=== PATIENT | female | born 1945 | race Caucasian/White ===

== ENCOUNTER 2016-11-21 16:36 | Inpatient (IN) ==
--- NOTE | 2016-11-21 17:40 | Emergency Department Note ---
Disposition Clinical Impression: Elevated systolic blood pressure reading with diagnosis of hypertension DVT (deep venous thrombosis) Qualifiers: DVT location: lower extremity Affected thrombotic vein of extremity: popliteal Laterality: left Chronicity: acute Qualified Code(s): I82.432 - Acute embolism and thrombosis of left popliteal vein Disposition: Admitted As Inpatient Condition: Fair Time of Disposition: 22:34 General Adult HPI - General Chief complaint: ED Extremity Injury, Lower Stated complaint: left leg pain and swelling s/p fall Time Seen by Provider: 11/21/16 17:13 Source: patient Mode of arrival: ambulatory Limitations: no limitations Nursing Notes Reviewed: Yes Vital Signs Reviewed: Yes - History of Present Illness HPI Narrative: Mrs. Johnston, a 71yo female, presents from home by POV with concerns regarding LLE swelling & bruising. Hx autoimmune hepatitis x20yrs, recently started on new steroid medication (6wks ago, Dr. Angel VILLANUEVA), after which she began having BL LE swelling. She was started on Lasix which improved her swelling on right side. Lt LE swelling persisted and progressed. Associated with lightheadedness. Patient fell Thursday - no LOC, no head trauma, no evaluation at that time. Weday, she noticed increased LLE swelling with bruising. PMH: anxiety, autoimmune hepatitis. HTN Medications: budesonide, carvedilol No antiplatelets or anticoagulants. ROS: Pos: Swelling with ecchymosis left lower extremity Neg: Fever, chills, nausea, vomiting, chest pains, palpitations, dyspnea, diaphoresis, back pains, changes in vision, confusion, unusual weakness or confusion Pain Scale: 3 - Related Data Home Medications Medication Instructions Recorded Confirmed Budesonide [Entocort EC] 9 mg PO QAM 11/21/16 11/21/16 Carvedilol [Carvedilol] 12.5 mg PO BID 11/21/16 11/21/16 Cholecalciferol (D-3) [Vitamin D] 1,000 unit PO DAILY 11/21/16 11/21/16 Furosemide [Lasix] 40 mg PO DAILY 11/21/16 11/21/16 Omeprazole [PriLOSEC] 20 mg PO DAILY 11/21/16 11/21/16 Spironolactone [Aldactone] 100 mg PO DAILY 11/21/16 11/21/16 Allergies Allergy/AdvReac Type Severity Reaction Status Date / Time No Known Allergies Allergy Verified 02/25/16 14:45 All systems ED: reviewed and negative except as stated. Past Medical History - Past Medical History Medical history: Reports: hypertension, other - Social History Smoking Status: Never smoker Smokeless Tobacco Status: No Alcohol use: Reports: none Drug use: Reports: none Physical Exam Vital Signs Reviewed General: Patient is alert, oriented, and in no acute distress. HEENT: No facial asymmetry. Head is normocephalic and atraumatic. PERRLA. Trachea midline. Cardiovascular: Heart regular rate and rhythm without clicks, rubs, gallops, or murmurs. No JVD. PMI nondisplaced. Trace pedal edema. Respiratory: Symmetric chest rise with good respiratory effort. Bilateral breath sounds are clear without wheezing, crackles, or rhonchi. Abdomen: Bowel sounds present normoactive x-4 quadrants. Abdomen is soft, nondistended, and nontender. No organomegaly noted. Musculoskeletal: Muscle strength 5/5 and symmetric bilaterally in lower extremities. Bilateral posterior tibial and dorsalis pedis pulses 2/4. Left leg compartments are soft. Skin: Ecchymosis in patient's left leg localized to the anterior aspect without extension into the knee or ankle. Psych: Patient's affect is appropriate for situation. - General Limitations: no limitations General appearance: alert, in no apparent distress Course Course Narrative: Patient is comfortable in a symptomatically at this time. She is able ambulate on her left lower extremity. She has no other pains or complaints. Initial concern is for a provoked DVT in the left lower extremity secondary to her fall. She is hypertensive at 188/123 and asymptomatic. We will continue monitoring as well as draw lab work looking for potential end organ damage as well as Doppler ultrasound left lower extremity to rule out DVT. Preliminary left over extremity Doppler ultrasound is concerning for multiple clots in the superficial and deep venous systems. Discussed this with the patient. She denies any chest pains, palpitations, dyspnea, cough, hemoptysis. At this time, no clinical indication for CT angiogram of her chest. Spoke with Dr. Green, director alumni relations vascular surgery, regarding patient's DVT and superficial clots. His recommendation is Lovenox or heparin. He has no preferences patient's renal function is normal. We will relay this information to the hospitalist for admission. Lovenox 1mg/kg administered. Spoke with the admitting hospitalist, Dr. Manuel, who agrees to accept the patient. Patient's blood pressure continues to elevate. Will provide labetalol IV push. No evidence of end organ damage. Impression: DVT, superficial venous thrombi, elevated blood pressure in the setting of chronic hypertension. Vital Signs Temperature 98.2 F 11/21/16 17:06 Pulse Rate 73 11/21/16 17:06 Respiratory Rate 18 11/21/16 17:06 Blood Pressure 188/123 11/21/16 17:06 O2 Sat by Pulse Oximetry 96 11/21/16 17:06 Temperature 98.2 F 11/21/16 17:06 Pulse Rate 72 11/21/16 22:09 Respiratory Rate 18 11/21/16 23:04 Blood Pressure 197/106 11/21/16 23:04 O2 Sat by Pulse Oximetry 95 11/21/16 22:09 Oxygen Delivery Oxygen Delivery Room Air Medical Decision Making - Medical Records Medical records reviewed: Yes I reviewed the patient's medical records. - Lab Data Lab results reviewed: Yes I reviewed the patient's lab results. Result diagrams: 11/21/16 18:26 11/21/16 18:26 Lab Results 11/21/16 11/21/16 11/21/16 Range/Units 18:26 18:26 18:26 WBC 14.2 H (4.3-11.1) K/mcL RBC 5.24 H (3.82-4.97) M/mcL Hgb 15.2 (11.5-15.4) g/dL Hct 47.6 H (35.3-44.9) % MCV 90.8 (83.0-100.0) fL MCH 29.0 (28.0-33.3) pg MCHC 31.9 (31.6-35.5) g/dL RDW 17.1 H (11.5-14.5) % Plt Count 115 L (140-400) K/mcL MPV 12.1 (9.4-12.4) fL Immature Gran % 1.1 (0-4) % Seg Neutrophils % 91.8 % Lymphocytes % 2.5 % Monocytes % 3.2 % Eosinophils % 1.1 % Basophils % 0.3 % Neutrophils # 13.0 H (1.6-8.9) K/mcL Lymphocytes # 0.4 L (0.6-4.6) K/mcL Monocytes # 0.5 (0.0-1.3) K/mcL Eosinophils # 0.2 (0.0-0.6) K/mcL Basophils # 0.0 (0.0-0.2) K/mcL PT 13.4 H (9.4-12.1) Seconds INR 1.2 Sodium 138 (136-145) mEq/L Potassium 4.1 (3.5-4.5) mEq/L Chloride 103 (98-109) mEq/L Carbon Dioxide 26 (19-29) mEq/L BUN 20 (7-20) mg/dL Creatinine 0.89 (0.57-1.11) mg/dL Est GFR ( Amer) > 60 (> 60) Est GFR (Non-Af Amer) > 60 (> 60) BUN/Creatinine Ratio 22 (6-26) Glucose 170 H (70-99) mg/dL Calculated Osmolality 293 (280-300) Calcium 9.4 (8.6-10.8) mg/dL Total Bilirubin 1.5 H (0.2-1.2) mg/dL AST 27 (5-34) Units/L ALT 35 (0-55) Units/L Alkaline Phosphatase 161 H (38-126) Units/L Serum Total Protein 7.2 (6.0-8.3) g/dL Albumin 2.8 L (3.5-5.0) g/dL Globulin 4.4 H (2.4-3.5) g/dL Albumin/Globulin Ratio 0.6 L (1.1-2.2) - EKG Data EKG #1 EKG attestation: Yes I reviewed and interpreted this EKG. EKG results narrative: EKG dated 21 November 2016 at 19:08 interpreted as sinus rhythm with a rate of 72. Normal intervals GA 153, QRS 109, QT/QTC 401/425. Left axis. Nonspecific ST-T changes. Awaiting old EKG. Attestation Statement - Attestation Attestation: I personally interviewed and examined this patient and my medical decision- making was reviewed with the ED Resident Physician, I agree with the documented findings, disposition and treatment plan as described except to the extent set forth below. Patient is a 71-year-old white female who presents the emergency room with left lower cavity pain and edema following a fall on Thursday in which she sustained a large amount of ecchymosis and soft tissue swelling to the left lower leg. He should denies any chest pain or pressure no shortness of breath no lightheadedness or dizziness and near syncope since the incident occurred. Patient has no pain in the joints above or below. Patient arrives to the emergency department ambulatory no difficulty with weightbearing despite large amount of ecchymosis and swelling to the left lower leg. Patient never had a blood clot in the past and no known risk factors with the exception of the recent injury. He should not arrives with an elevated blood pressure, history of hypertension. Patient denies any headache no visual changes no chest pain or pressure no shortness of breath no focal neurologic deficits. Physical exam is documented. Patient was found to have extensive DVT of the left lower extremity. cargo services coordinator not available and outpatient anticoagulants are not covered by her Medicare insurance per pharmacy and less patient admitted to the hospital. Patient is hemodynamically stable at this time and be admitted to the medicine service with a vascular consult. Vascular consult was requested by the hospitalist and was ordered in the emergency department. We did speak with Dr. Johnson Judd who will see the patient tomorrow. Anticoagulation was initiated in the ED.
[2016-11-21 18:34] LABS: Basophils % 0.3 %; Eosinophils # 0.2 K/mcL (0.0-0.6); Eosinophils % 1.1 %; Hematocrit 47.6 % (35.3-44.9); Hemoglobin 15.2 g/dL (11.5-15.4); Immature Granulocytes % 1.1 % (0-4); Lymphocytes # 0.4 K/mcL (0.6-4.6); Lymphocytes % 2.5 %; Mean Corpuscular HGB Conc 31.9 g/dL (31.6-35.5); Mean Corpuscular Volume 90.8 fL (83.0-100.0); Mean Platelet Volume 12.1 fL (9.4-12.4); Monocytes # 0.5 K/mcL (0.0-1.3); Monocytes % 3.2 %; Platelet Count 115 K/mcL (140-400); Red Blood Count 5.24 M/mcL (3.82-4.97); Red Cell Distribution Width 17.1 % (11.5-14.5); Segmented Neutrophils % 91.8 %
[2016-11-21 18:41] LABS: INR 1.2; Prothrombin Time 13.4 Seconds (9.4-12.1)
[2016-11-21 18:48] LABS: Alanine Aminotransferase 35 Units/L (0-55); Albumin 2.8 g/dL (3.5-5.0); Albumin/Globulin Ratio 0.6 (1.1-2.2); Alkaline Phosphatase 161 Units/L (38-126); Aspartate Amino Transferase 27 Units/L (5-34); BUN/Creatinine Ratio 22 (6-26); Bilirubin,Total 1.5 mg/dL (0.2-1.2); Blood Urea Nitrogen 20 mg/dL (7-20); Calcium 9.4 mg/dL (8.6-10.8); Carbon Dioxide 26 mEq/L (19-29); Chloride 103 mEq/L (98-109); Globulin 4.4 g/dL (2.4-3.5); Glucose 170 mg/dL (70-99); Osmolality,Calculated 293 (280-300); Potassium 4.1 mEq/L (3.5-4.5); Sodium 138 mEq/L (136-145); Total Protein 7.2 g/dL (6.0-8.3); eGFR For African Americans > 60 (> 60); eGFR For Non-African Americans > 60 (> 60)
[2016-11-21] MEDS ORDERED: *HR* Enoxaparin 100 MG/ML SYRINGE SQ STA (21:23)
[2016-11-21] MEDS ORDERED: *HR* Labetalol 20 MG/4 ML SYRINGE IVP ONE (22:19)
[2016-11-21] MEDS ORDERED: Acetaminophen 325 MG TABLET PO PRN (23:43)
[2016-11-21] MEDS ORDERED: Ondansetron 4 MG/2 ML VIAL IVP PRN (23:43)
[2016-11-21] MEDS ORDERED: Naloxone 0.4 MG/ML INJ IVP PRN (23:43)
[2016-11-22 00:56] LABS: Bilirubin,Urine Negative (Negative); Blood,Urine Negative (Negative); Clarity,Urine Clear (Clear); Color,Urine Yellow (Yellow); Glucose,Urine (UA) Normal (Normal); Ketones,Urine Negative (Negative); Leukocyte Esterase,Urine Negative (Negative); Nitrite,Urine Negative (Negative); Protein,Urine Negative (Neg-Trace); Specific Gravity,Urine 1.016 (1.010-1.025); Urobilinogen,Urine Normal (Normal)
[2016-11-22] MEDS ORDERED: cloNIDine HCl 0.1 MG TABLET PO ONE (00:57)
--- NOTE | 2016-11-22 00:58 | Internal Med History&Physical ---
Date of Encounter: 11/22/16 Time of Encounter: 00:56 Assessment and Plan (1) DVT (deep venous thrombosis) Current visit: Yes Status: Acute Patient presents with swelling in the left lower extremity and exam reveals bruising and edema over the left lower ex 20. Lower extremity Doppler reveals DVT in the left superficial femoral vein and popliteal vein. Patient does not have a history of air travel, prolonged sitting or recent road trip. Likely provocating factor for her left lower extremity DVT is the recent use of steroids. Patient will be admitted to inpatient status. Expected to be in the hospital for at least 2 midnights. Moderate risk due to need for anticoagulation and possible bridging to Coumadin depending on whether her insurance will cover Coumadin versus new or anticoagulants. Expected discharge disposition is to home. Patient received Lovenox full dose in the emergency room. Will continue the same. Discussed with the patient about the diagnosis and the need for anticoagulation for at least 3 months. Discussed about the options including Coumadin versus newer anticoagulants. Patient wants to be on one of the newer anticoagulant medications. Will need to check with the pharmacy regarding which anticoagulant will be covered. If it will be, she can be discharged home tomorrow. For now, patient will be continued on full dose Lovenox. Qualifiers: DVT location: lower extremity Affected thrombotic vein of extremity: femoral Laterality: left Chronicity: acute Qualified Code(s): I82.412 - Acute embolism and thrombosis of left femoral vein (2) HTN (hypertension) Current visit: Yes Status: Chronic Uncontrolled blood pressure. We will give 1 dose of by mouth clonidine 0.2 mg. Resume home medications. Qualifiers: Hypertension type: essential hypertension Qualified Code(s): I10 - Essential (primary) hypertension (3) Obesity (BMI 30.0-34.9) Current visit: No Status: Chronic Internal Medicine - H&P: HPI Chief complaint: Left leg swelling Admitted From: Emergency Dept Plans for Post Hospital Care: Home History of present illness: Ms. Johnston is a 71 year old female presented to the emergency department due to swelling in her left leg. Patient states that she has a history of autoimmune hepatitis. She has had this for 20 years. However, over the past 8-9 months she has started experiencing fatigue. Hence, she is being evaluated by liver specialist at [facility]. After she underwent a liver biopsy, she was recently started on by mouth budesonide 9 mg daily about one and half months ago. She states that she has started experiencing weight gain and swelling in her legs since she started budesonide. About 10 days ago, she was started on Lasix and the swelling in her legs started resolving. However, she continued to have swelling in her left leg. She also reports 2 episodes of near syncope over the past week but denies having lost consciousness. One episode happened when she was walking and the second episode happened when she was urinating. She denies any nausea, vomiting associated with these episodes. She denies any palpitations. She denies any fever or chills. She does report some rash over the left lower extremity and some bruising. She denies any recent changes in her appetite but reports fluctuating weight changes. Past Med Surg Social Fam HX - Past Medical History Attestation: Yes The following information was validated with the patient. Source: patient Medical history: hepatitis, hypertension, liver disease (Autoimmune hepatitis) Psychiatric history: no psych history - Past Surgical History Surgical History: , cataract, hysterectomy - Social History Smoking Status: Never smoker Smokeless Tobacco Status: No Alcohol use: none Drug use: none Current living situation: Home, With Family Activity Level: Independent ambulation, Very active Recent Out of Country Travel Within the Last 8 Weeks: No Exposure or Possible Exposure to Illness During Travel: No - Family History Mother Living Status: Age at : 71 Cause of : UNKNOWN Hx Family Neurologic Disorders: Yes (ALZHEIMERS) Internal Medicine - H&P: Meds Budesonide [Entocort EC] 9 mg PO QAM 11/21/16 [History] Carvedilol [Carvedilol] 12.5 mg PO BID 11/21/16 [History] Cholecalciferol (D-3) [Vitamin D] 1,000 unit PO DAILY 11/21/16 [History] Furosemide [Lasix] 40 mg PO DAILY 11/21/16 [History] Omeprazole [PriLOSEC] 20 mg PO DAILY 11/21/16 [History] Spironolactone [Aldactone] 100 mg PO DAILY 11/21/16 [History] Allergies No Known Allergies Allergy (Verified 02/25/16 14:45) All Systems PM: A 10-system review of systems was performed and is negative for pertinent findings except as documented above in the HPI. Review of systems: 10 systems have been reviewed and are negative except as mentioned in the history of present illness - Constitutional Vitals: Temp Pulse Resp BP Pulse Ox 97.9 F 68 18 115/78 100 11/21/16 23:22 11/21/16 23:22 11/21/16 23:22 11/21/16 23:22 11/21/16 23:22 Exam: Gen.: Lying in bed. No acute distress. Eyes: Pupils equal, round and reactive to light. Extraocular muscles intact. ENT: Moist mucous membranes. No oropharyngeal erythema or discharge. Chest: Clear to auscultation bilaterally. No adventitious sounds present. CVS: First and second heart sounds present. No murmurs, rubs or gallops. Abdomen: Soft, nontender, nondistended. Bowel sounds present. No hepatosplenomegaly. Skin: No decubitus ulcers appreciated. Bruising over the left lower extremity below the left knee joint. COUNTER PROFESSIONAL: No focal neuro deficits present. Psychiatric: Alert, awake and oriented to time, place and person. Lymphatic system: No lymphadenopathy appreciated Musculoskeletal: No joint tenderness or swelling. Edema noted over the left lower extremity more than the right lower extreme. Nonpitting. Nontender to palpation. Internal Med - H&P Results - Labs CBC & Chem 7: 11/21/16 18:26 11/21/16 18:26 - Diagnostic Studies Other Images Additional comments: Left lower extremity venous Doppler reveals DVT in the superficial femoral vein.
[2016-11-22] MEDS ORDERED: cloNIDine HCl 0.1 MG TABLET ONE (01:04)
[2016-11-22 03:04] LABS: Basophils % 0.2 %; Eosinophils # 0.1 K/mcL (0.0-0.6); Eosinophils % 1.1 %; Hematocrit 44.8 % (35.3-44.9); Hemoglobin 14.4 g/dL (11.5-15.4); Immature Granulocytes % 1.6 % (0-4); Lymphocytes # 0.5 K/mcL (0.6-4.6); Lymphocytes % 3.8 %; Mean Corpuscular HGB Conc 32.1 g/dL (31.6-35.5); Mean Corpuscular Hemoglobin 29.1 pg (28.0-33.3); Mean Corpuscular Volume 90.7 fL (83.0-100.0); Mean Platelet Volume 11.8 fL (9.4-12.4); Monocytes # 0.5 K/mcL (0.0-1.3); Monocytes % 3.5 %; Neutrophils # 11.6 K/mcL (1.6-8.9); Platelet Count 104 K/mcL (140-400); Red Blood Count 4.94 M/mcL (3.82-4.97); Segmented Neutrophils % 89.8 %
[2016-11-22 03:17] LABS: Alanine Aminotransferase 31 Units/L (0-55); Albumin 2.6 g/dL (3.5-5.0); Albumin/Globulin Ratio 0.7 (1.1-2.2); Alkaline Phosphatase 144 Units/L (38-126); Aspartate Amino Transferase 27 Units/L (5-34); BUN/Creatinine Ratio 21 (6-26); Bilirubin,Total 1.3 mg/dL (0.2-1.2); Blood Urea Nitrogen 18 mg/dL (7-20); Calcium 9.2 mg/dL (8.6-10.8); Carbon Dioxide 25 mEq/L (19-29); Chloride 104 mEq/L (98-109); Globulin 3.9 g/dL (2.4-3.5); Glucose 210 mg/dL (70-99); Osmolality,Calculated 294 (280-300); Potassium 4.1 mEq/L (3.5-4.5); Sodium 138 mEq/L (136-145); Total Protein 6.5 g/dL (6.0-8.3); eGFR For African Americans > 60 (> 60); eGFR For Non-African Americans > 60 (> 60)
[2016-11-22] MEDS: *HR* Enoxaparin 100 MG/ML SYRINGE SQ SCH ×2 (06:05→17:35)
[2016-11-22] MEDS ORDERED: Cholecalciferol (D-3) 1,000 UNIT TABLET PO SCH (09:00)
[2016-11-22] MEDS ORDERED: ENTOCORT 9 MG PO SCH (09:00)
--- NOTE | 2016-11-22 13:35 | Venous Imaging Report ---
LE Venous Duplex Patient Name:Perri Johnston Order Number:[id number] Procedure Date:11/21/2016 Date:6Age:71 yrs Gender:Female Location:[facility] [place] ED Room #: ED30 Animal Stunner:Lara Dubose Referring MD:Cristopher Sandra DO production team member:Carlos Harley MD Reading MD:Lalito Mcfadden MD Primary Indications:Swelling/bruising of left LE Secondary Indications: Risk Factors Yes/No Recent fall Impressions: Acute deep venous thrombosis is present in the left superficial femoral through gastrocnemius vein. Acute superficial thrombosis is present in the left lesser saphenous vein. Normal contralateral common femoral vein. Recommendations: Test completed on 11/21/2016 at 8:02:00 pm. Critical findings reported to DO Matthew-ED- in person at 8:03:00 pm on 11/21/2016 by Lara Dubose. Findings Venous Duplex Results: Left: There is an acute occlusive thrombus seen in the left distal superficial femoral. There is an acute occlusive thrombus seen in the left popliteal. There is an acute occlusive thrombus seen in the left gastrocnemius. There is an acute occlusive thrombus seen in the left lesser saphenous. The left peroneal vein was not well visualized. Prior Study: No prior study available for comparison. Lower Extremity Venous Duplex Side Vein Compress Spontaneous Flow Augment Diameter (cm) Depth (cm) Left Distal Iliac Normal Yes Phasic Yes Left Common Femoral Normal Yes Phasic Yes Left Superficial Femoral None no Absent no Left Popliteal None no Absent no Left Posterior Tibial Normal Yes Phasic Yes Left Peroneal Normal Yes Phasic Yes Left Gastrocnemius None no Absent no Left Saphenofemoral Junction Normal Yes Phasic Yes Left Great Saphenous Normal Yes Phasic Yes Left Lesser Saphenous None no Absent no Right Common Femoral Normal Yes Phasic Yes Updated by Lalito Mcfadden MD on 11/22/2016 1:26:56 PM electronically signed on 11/22/2016 1:30:59 PM with status of Final
[2016-11-22 15:31] VITALS: BP 128/79
--- NOTE | 2016-11-22 15:42 | Oncology Inp Consult Note ---
Date of Encounter: 11/22/16 Time of Encounter: 16:00 Assessment and Plan (1) DVT (deep venous thrombosis) Status: Acute Assessment and plan: Lower extremity from left superficial femoral vein through gastrocnemius vein, left lesser saphenous vein acute in onset, planned anti-coagulation with xarelto. She had evidence of biopsy-proven mild cirrhosis by Dr. Flanagan's notes in 2009 and imaging features consistent with cirrhosis as well. Liver function tests coag panel reviewed, hypoalbuminemia, PT slightly prolonged. GIven hepatic insufficiency and acute onset symptomatic DVT-anticoagulation with (xarelto 15 BID x3 wks for ac DVT) rather than coumadin to be considered, monitoring for clinical bleeding symptoms. Plan off care discussed with patient in detail and she stated understanding. We reviewed the risks benefits off anticoagulation. She will return to my clinic for close monitoring off any bleeding symptoms in a week to 2 weeks. Qualifiers: DVT location: lower extremity Affected thrombotic vein of extremity: femoral Laterality: left Chronicity: acute Qualified Code(s): I82.412 - Acute embolism and thrombosis of left femoral vein - Data of Consult Requesting Physician: Maynor Valderrama DO Primary Care Provider: Carlos Harley Jr, MD - Consult Narrative Reason for consult: dvt History of present illness: Ms. Johnston is a 71 year old female was consulted for acute DVT in the left superficial femoral, left popliteal, left lesser saphenous and left gastronemius vein, acute superficial thrombosis in the left lesser saphenous vein. 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 Hematology consulted for appropriate anticoag given her liver problem as well as new onset DVT. Reports a fall last week and had noticed some swelling and bruising in the lower extremity. She reports that she is not on Imuran anymore and her hot roll laminator at [facility] had put her on budesonide. She thought that the swelling was related to budesonide. She denies any pain. Past Med Surg Social Fam HX - Past Medical History Medical history: hepatitis, hypertension, liver disease (Autoimmune hepatitis) Psychiatric history: no psych history - Past Surgical History Surgical History: , cataract, hysterectomy - Social History Smoking Status: Never smoker Smokeless Tobacco Status: No Alcohol use: none Drug use: none - Family History Mother Living Status: Age at : 71 Cause of : UNKNOWN Hx Family Neurologic Disorders: Yes (ALZHEIMERS) Medications and Allergies Budesonide [Entocort EC] 9 mg PO QAM 11/21/16 [History] Carvedilol [Carvedilol] 12.5 mg PO BID 11/21/16 [History] Cholecalciferol (D-3) [Vitamin D] 1,000 unit PO DAILY 11/21/16 [History] Furosemide [Lasix] 40 mg PO DAILY 11/21/16 [History] Omeprazole [PriLOSEC] 20 mg PO DAILY 11/21/16 [History] Spironolactone [Aldactone] 100 mg PO DAILY 11/21/16 [History] Allergies No Known Allergies Allergy (Verified 02/25/16 14:45) Review of systems: as in HPI otherwise neg Oncology - Exam - Constitutional Vitals: Temp Pulse Resp BP Pulse Ox 98.0 F 83 16 128/79 93 11/22/16 15:28 11/22/16 15:28 11/22/16 15:28 11/22/16 15:28 11/22/16 15:28 General appearance: average body habitus - Head Head exam: Present: atraumatic, normal inspection - Eye Eye exam: Present: sclera anicteric - ENT ENT exam: Present: mucous membranes moist - Respiratory Respiratory exam: Present: CTAB - Cardiovascular Cardiovascular exam: Present: +S1, +S2 - GI/Abdominal GI/Abdominal exam: Present: normal bowel sounds, soft - Extremities Exam Extremities exam: Present: pedal edema - Neurological Exam Neurological exam: Present: alert, oriented X3 - Psychiatric Psychiatric exam: Present: normal affect - Skin Skin exam: Present: petechiae Oncology - Results - Labs Labs: Short CBC 11/22/16 Range/Units 02:26 WBC 12.9 H (4.3-11.1) K/mcL Hgb 14.4 (11.5-15.4) g/dL Hct 44.8 (35.3-44.9) % Plt Count 104 L (140-400) K/mcL Neutrophils # 11.6 H (1.6-8.9) K/mcL BMP 11/22/16 02:26 Sodium 138 Potassium 4.1 Chloride 104 Carbon Dioxide 25 BUN 18 Creatinine 0.85 Glucose 210 H Calcium 9.2 Liver Function 11/22/16 Range/Units 02:26 Total Bilirubin 1.3 H (0.2-1.2) mg/dL AST 27 (5-34) Units/L ALT 31 (0-55) Units/L Alkaline Phosphatase 144 H (38-126) Units/L Albumin 2.6 L (3.5-5.0) g/dL Consult Discharge Plan - Plan Referrals: Carlos Harley Jr, MD [Primary Care Provider] -
--- NOTE | 2016-11-22 18:35 | Discharge Summary ---
Date of Encounter: 11/22/16 Time of Encounter: 18:30 - Discharge Diagnosis (1) DVT (deep venous thrombosis) Priority: Primary Status: Acute Qualifiers: DVT location: lower extremity Affected thrombotic vein of extremity: femoral Laterality: left Chronicity: acute Qualified Code(s): I82.412 - Acute embolism and thrombosis of left femoral vein (2) HTN (hypertension) Priority: Secondary Status: Chronic Qualifiers: Hypertension type: essential hypertension Qualified Code(s): I10 - Essential (primary) hypertension (3) Obesity (BMI 30.0-34.9) Priority: Secondary Status: Chronic (4) Autoimmune hepatitis Priority: Secondary Status: Chronic (5) Splenomegaly Priority: Secondary Status: Chronic - Discharge Medications Prescriptions: Rivaroxaban [Xarelto] 1 dose PO AD 30 Days Home Medications: Budesonide [Entocort EC] 9 mg PO QAM 11/21/16 [History] Carvedilol 12.5 mg PO BID 11/21/16 [History] Cholecalciferol (D-3) [Vitamin D] 1,000 unit PO DAILY 11/21/16 [History] Furosemide [Lasix] 40 mg PO DAILY 11/21/16 [History] Omeprazole [PriLOSEC] 20 mg PO DAILY 11/21/16 [History] Spironolactone [Aldactone] 100 mg PO DAILY 11/21/16 [History] Rivaroxaban [Xarelto] 1 dose PO AD 30 Days 11/22/16 [Rx] Allergies/Adverse Reactions: Allergies No Known Allergies Allergy (Verified 02/25/16 14:45) Date of admission: 11/22/16 00:53 Primary care physician: Carlos Harley Jr, MD Consults: 11/22/16 07:13 Consult to [employer] Executive Director [CONS] Routine Reason for SW Consult: medication pre auth 11/22/16 14:15 Consult to Oncology Hematology [CONS] Routine Consulting Provider: Henrique Menjivar Reason for Consult: DVT. Anticoagulant recs. Time Notified: 13:45 Call Completed: Yes Discharging clinician: Maynor Valderrama Anticipated date of discharge: 11/22/16 - Patient Status Disposition: Home, Self-Care Condition: Good Functional capacity at discharge: independent ambulation Overall status at discharge: patient is progressing back to baseline - Discharge Instructions Follow Up With: Carlos Harley Jr, MD [Primary Care Provider] - (Follow up in one week) - Diet and Activity Activity: increase activity as tolerated Diet: advance to your usual diet Hospital course: Ms. Johnston is a 71 year old female with hx of autoimmune hepatitis presented with swelling in L leg. Found to have DVT and admitted. Ms. Johnston was admitted to med floor. She was started on Lovenox BID. She tolerated this with no new issues. Due to her other medical problems she was evaluated by heme and recommended Xarelto for field scout treatment. She was agreeable. She is afebrile and vitals are stable. She was admitted inpatient but has improved quickly and arrangements have been made for adequate outpatient treatment and follow up. - Time Spent with Patient Total time spent providing and/or coordinating discharge services: 40 min - Constitutional Vitals: Temp Pulse Resp BP Pulse Ox 98.0 F 83 16 128/79 93 11/22/16 15:28 11/22/16 15:28 11/22/16 15:28 11/22/16 15:28 11/22/16 15:28 General appearance: Present: A&O X 3, pleasant, answers questions appropriately - Head Head exam: Present: normocephalic - Eye Eye exam: Present: conjuntiva pink - ENT ENT exam: Present: mucous membranes moist - Respiratory Respiratory exam: Present: CTAB - Cardiovascular Cardiovascular exam: Present: RRR. Absent: tachycardia - GI/Abdominal GI/Abdominal exam: Present: soft. Absent: tenderness - Extremities Exam Extremities exam: Present: pedal edema, warm Additional comments: LLE with significant ecchymosis and swelling. Pulse palpable. - Neurological Exam Neurological exam: Present: alert, oriented X3 - Psychiatric Psychiatric exam: Present: normal affect, normal mood
--- NOTE | 2016-11-24 07:10 | Electrocardiograph Report ---
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
== END 2016-11-22 19:19 | disposition home or self-care (01) | DRG 301 ==
LOC: EMEROO 16:36 → 3BNU 16:36 → SUATTDRO 11-22 00:53
PROVIDERS: ADMIT Registered Nurse; ATTEND Internal Medicine

== ENCOUNTER 2017-07-10 16:20 | Inpatient (IN) ==
[2017-07-10 16:57] LABS: Bilirubin,Urine Moderate (Negative); Blood,Urine Negative (Negative); Clarity,Urine Cloudy (Clear); Color,Urine Orange (Yellow); Glucose,Urine (UA) Normal (Normal); Ketones,Urine Trace mg/dL (Negative); Leukocyte Esterase,Urine Small (Negative); Nitrite,Urine Positive (Negative); PH,Urine 5.5 pH Units (5.0-8.0); Protein,Urine Trace mg/dL (Neg-Trace); Specific Gravity,Urine 1.018 (1.010-1.025)
[2017-07-10 16:59] LABS: Bacteria,Urine None Seen per hpf (None-Few); Hyaline Casts,Urine Few per lpf (None-Few); RBC,Urine 0-3 per hpf (0-3); Squamous Epithelial Cell,Urine Many per lpf (None-Few); WBC,Urine 0-3 per hpf (0-3)
[2017-07-10 17:03] LABS: Eosinophils # 0.1 K/mcL (0.0-0.6); Eosinophils % 1.3 %; Hematocrit 37.7 % (35.3-44.9); Immature Granulocytes % 0.9 % (0-4); Lymphocytes # 0.1 K/mcL (0.6-4.6); Lymphocytes % 2.1 %; Mean Corpuscular HGB Conc 34.5 g/dL (31.6-35.5); Mean Corpuscular Hemoglobin 37.6 pg (28.0-33.3); Mean Platelet Volume 10.7 fL (9.4-12.4); Monocytes # 0.2 K/mcL (0.0-1.3); Monocytes % 3.4 %; Neutrophils # 6.2 K/mcL (1.6-8.9); Platelet Count 121 K/mcL (140-400); Red Blood Count 3.46 M/mcL (3.82-4.97); Red Cell Distribution Width 15.8 % (11.5-14.5); Segmented Neutrophils % 92.3 %
[2017-07-10 17:23] LABS: Alanine Aminotransferase 65 Units/L (7-52); Albumin 3.2 g/dL (3.5-5.7); Albumin/Globulin Ratio 1.1 (1.1-2.2); Alkaline Phosphatase 263 Units/L (34-104); Aspartate Amino Transferase 138 Units/L (13-39); BUN/Creatinine Ratio 23 (6-26); Bilirubin,Total 6.5 mg/dL (0.3-1.0); Blood Urea Nitrogen 19 mg/dL (8-23); Carbon Dioxide 24 mEq/L (23-29); Chloride 105 mEq/L (98-107); Globulin 2.8 g/dL (2.4-3.5); Glucose 165 mg/dL (70-105); Osmolality,Calculated 294 (280-300); Potassium 3.6 mEq/L (3.5-5.1); Sodium 139 mEq/L (136-145); eGFR For African Americans > 60 (> 60); eGFR For Non-African Americans > 60 (> 60)
--- NOTE | 2017-07-10 17:47 | Emergency Department Note ---
Disposition Clinical Impression: Elevated bilirubin, Transaminitis, RUQ pain, Nausea and vomiting Disposition: Admitted As Inpatient Condition: Good Time of Disposition: 20:31 General Adult HPI - General Chief complaint: ED Nausea/Vomiting/Diarrhea Stated complaint: N/V Time Seen by Provider: 07/10/17 16:26 Source: patient Mode of arrival: ambulatory Limitations: no limitations Nursing Notes Reviewed: Yes Vital Signs Reviewed: Yes - History of Present Illness HPI Narrative: Patient is a 72-year-old female with past medical history of autoimmune hepatitis, steroid-induced diabetes. She follows with the cancer center here for care. She also states that she has had running fifth sludge in her gallbladder in the past and has had episodes of right upper quadrant abdominal pain in the past. She has blood work frequently to monitor her LFTs and bilirubin levels. She presents today due to epigastric and right upper quadrant pain. This began about 2-3 hours prior to presentation. She had 5 episodes of nonbloody nonbilious vomiting. Denies any fevers, constipation. She does have chronic diarrhea that is unchanged. Denies any blood in stool or urine, denies dysuria. She does state that her urine is very dark today. Pain Scale: 7 - Related Data Home Medications Medication Instructions Recorded Confirmed Budesonide [Entocort EC] 3 mg PO QAM 11/21/16 07/10/17 Carvedilol 12.5 mg PO DAILY 11/21/16 07/10/17 Cholecalciferol (D-3) [Vitamin D] 2,000 unit PO DAILY 11/21/16 07/10/17 Furosemide [Lasix] 40 mg PO DAILY PRN 11/21/16 07/10/17 Omeprazole [PriLOSEC] 20 mg PO DAILY 11/21/16 07/10/17 Spironolactone [Aldactone] 100 mg PO DAILY PRN 11/21/16 07/10/17 Azathioprine [Imuran] 75 mg PO DAILY 07/10/17 07/10/17 Insulin Glargine,Hum.rec.anlog 10 unit SQ HS 07/10/17 07/10/17 [Basaglar Kwikpen U-100] Allergies Allergy/AdvReac Type Severity Reaction Status Date / Time No Known Allergies Allergy Verified 06/10/17 14:50 All systems ED: reviewed and negative except as stated. Constitutional: Denies: fever Cardiovascular: Denies: chest pain, palpitations Respiratory: Denies: cough, dyspnea, wheezes Gastrointestinal: Reports: abdominal pain, nausea, vomiting, diarrhea (chronic) . Denies: hematemesis, melena, hematochezia Genitourinary: Reports: other (dark urine). Denies: urgency, dysuria, frequency Neurological: Denies: headache, weakness, numbness, paresthesias Past Medical History - Past Medical History Attestation: Yes The following information was validated with the patient. Source: patient Medical history: Reports: diabetes, hypertension, other Surgical history: Reports: , cataract, hysterectomy Psychiatric history: Reports: no psych history SALES OPERATIONS DIRECTOR history: Reports: no SALES OPERATIONS DIRECTOR history - Social History Smoking Status: Never smoker Smokeless Tobacco Status: No Alcohol use: Reports: none Drug use: Reports: none Physical Exam - General Limitations: no limitations General appearance: alert - Head Head exam: atraumatic, normocephalic, normal inspection - Eye Eye exam: Present: normal appearance, PERRL, EOMI - ENT ENT exam: normal exam, normal oropharynx, mucous membranes moist - Neck Neck exam: Present: normal inspection, full ROM, trachea midline - Chest Chest inspection: Present: normal inspection, symmetric chest wall rise - Respiratory Respiratory exam: Present: normal lung sounds bilaterally - Cardiovascular Cardiovascular exam: Present: normal rhythm, tachycardia, normal heart sounds - Abdominal Exam Abdominal exam: Present: soft, tenderness (moderate in epigastric and RUQ), Zaman's sign. Absent: distention, guarding, rebound, rigidity, tenderness at McBurney's Point - Extremities Exam Extremities exam: Present: normal inspection, full ROM. Absent: tenderness, pedal edema - Neurological Exam Neurological exam: Present: alert, oriented X3 - Psychiatric Psychiatric exam: Present: normal affect, normal mood - Skin Skin exam: Present: warm, dry, intact, other (Petechial rash on left cheek.) Course Course Narrative: Patient was afebrile. She is tachycardic. Blood pressure within normal limits. Physical exam shows epigastric and right upper quadrant pain, positive Zaman's sign. Basic lab work shows elevation in LFTs from baseline, elevation in total bilirubin. We will give the patient IV fluids for dehydration and tachycardia, we will obtain right upper quadrant ultrasound to assess for cholecystitis. Patient is currently declining any pain or nausea medicine. 20:29 gallbladder ultrasound showed mild thickening of the gallbladder wall but no overt pericholecystic fluid. This is concerning for possible cholecystitis. I talked with surgery, Dr. Hayden, who recommended that the patient be seen by GI tomorrow and be worked up by GI first. Once that is complete, surgery can be consult for possible cholecystectomy. I reassessed the patient and she is now agreeable with Zofran for nausea and IV fluids. We will get the patient for further care. Vital Signs Temperature 97.5 F L 07/10/17 17:00 Pulse Rate 119 07/10/17 17:00 Respiratory Rate 18 07/10/17 17:00 Blood Pressure 120/81 07/10/17 17:00 O2 Sat by Pulse Oximetry 96 07/10/17 17:00 Temperature 97.5 F L 07/10/17 17:00 Pulse Rate 116 07/10/17 19:34 Respiratory Rate 18 07/10/17 19:34 Blood Pressure 137/81 07/10/17 19:34 O2 Sat by Pulse Oximetry 96 07/10/17 19:34 Oxygen Delivery Oxygen Delivery Room Air Medical Decision Making - MDM Narrative Medical decision making narrative: Patient was afebrile. She is tachycardic. Blood pressure within normal limits. Physical exam shows epigastric and right upper quadrant pain, positive Zaman's sign. Basic lab work shows elevation in LFTs from baseline, elevation in total bilirubin. We will give the patient IV fluids for dehydration and tachycardia, we will obtain right upper quadrant ultrasound to assess for cholecystitis. Patient is currently declining any pain or nausea medicine. 20:29 gallbladder ultrasound showed mild thickening of the gallbladder wall but no overt pericholecystic fluid. This is concerning for possible cholecystitis. I talked with surgery, Dr. Hayden, who recommended that the patient be seen by GI tomorrow and be worked up by GI first. Once that is complete, surgery can be consult for possible cholecystectomy. I reassessed the patient and she is now agreeable with Zofran for nausea and IV fluids. We will get the patient for further care. - Medical Records Medical records reviewed: Yes I reviewed the patient's medical records. - Lab Data Lab results reviewed: Yes I reviewed the patient's lab results. Result diagrams: 07/10/17 16:54 07/10/17 16:54 Lab Results 07/10/17 07/10/17 07/10/17 Range/Units 16:50 16:54 16:54 WBC 6.7 D (4.3-11.1) K/mcL RBC 3.46 L (3.82-4.97) M/mcL Hgb 13.0 D (11.5-15.4) g/dL Hct 37.7 (35.3-44.9) % MCV 109.0 H (83.0-100.0) fL MCH 37.6 H (28.0-33.3) pg MCHC 34.5 (31.6-35.5) g/dL RDW 15.8 H (11.5-14.5) % Plt Count 121 L D (140-400) K/mcL MPV 10.7 (9.4-12.4) fL Immature Gran % 0.9 (0-4) % Seg Neutrophils % 92.3 % Lymphocytes % 2.1 % Monocytes % 3.4 % Eosinophils % 1.3 % Basophils % 0.0 % Neutrophils # 6.2 (1.6-8.9) K/mcL Lymphocytes # 0.1 L (0.6-4.6) K/mcL Monocytes # 0.2 (0.0-1.3) K/mcL Eosinophils # 0.1 (0.0-0.6) K/mcL Basophils # 0.0 (0.0-0.2) K/mcL PT (9.4-12.1) Seconds INR APTT (26.0-36.0) Seconds Sodium 139 (136-145) mEq/L Potassium 3.6 (3.5-5.1) mEq/L Chloride 105 (98-107) mEq/L Carbon Dioxide 24 (23-29) mEq/L BUN 19 (8-23) mg/dL Creatinine 0.81 (0.60-1.20) mg/dL Est GFR ( Amer) > 60 (> 60) Est GFR (Non-Af Amer) > 60 (> 60) BUN/Creatinine Ratio 23 (6-26) Glucose 165 H (70-105) mg/dL Calculated Osmolality 294 (280-300) Calcium 9.0 (8.6-10.3) mg/dL Total Bilirubin 6.5 H (0.3-1.0) mg/dL AST 138 H (13-39) Units/L ALT 65 H (7-52) Units/L Alkaline Phosphatase 263 H (34-104) Units/L Serum Total Protein 6.0 L (6.4-8.9) g/dL Albumin 3.2 L (3.5-5.7) g/dL Globulin 2.8 (2.4-3.5) g/dL Albumin/Globulin Ratio 1.1 (1.1-2.2) Urine Color [place] A (Yellow) Urine Clarity Cloudy A (Clear) Urine pH 5.5 (5.0-8.0) pH Units Ur Specific [place] 1.018 (1.010-1.025) Urine Protein Trace (Neg-Trace) mg/dL Urine Glucose (UA) Normal (Normal) mg/dL Urine Ketones Trace H (Negative) mg/dL Urine Blood Negative (Negative) Urine Nitrite Positive A (Negative) Urine Bilirubin Moderate H (Negative) Urine Urobilinogen 4.0 H (Normal) mg/dL Ur Leukocyte Esterase Small H (Negative) Urine Microscopic RBC 0-3 (0-3) per hpf Urine Microscopic WBC 0-3 (0-3) per hpf Ur Squamous Epith Cells Many H (None-Few) per lpf Urine Bacteria None Seen (None-Few) per hpf Hyaline Casts Few (None-Few) per lpf Ur Culture Indicated? NO. (NO) 07/10/17 Range/Units 19:41 WBC (4.3-11.1) K/mcL RBC (3.82-4.97) M/mcL Hgb (11.5-15.4) g/dL Hct (35.3-44.9) % MCV (83.0-100.0) fL MCH (28.0-33.3) pg MCHC (31.6-35.5) g/dL RDW (11.5-14.5) % Plt Count (140-400) K/mcL MPV (9.4-12.4) fL Immature Gran % (0-4) % Seg Neutrophils % % Lymphocytes % % Monocytes % % Eosinophils % % Basophils % % Neutrophils # (1.6-8.9) K/mcL Lymphocytes # (0.6-4.6) K/mcL Monocytes # (0.0-1.3) K/mcL Eosinophils # (0.0-0.6) K/mcL Basophils # (0.0-0.2) K/mcL PT 14.0 H (9.4-12.1) Seconds INR 1.3 APTT 26.1 (26.0-36.0) Seconds Sodium (136-145) mEq/L Potassium (3.5-5.1) mEq/L Chloride (98-107) mEq/L Carbon Dioxide (23-29) mEq/L BUN (8-23) mg/dL Creatinine (0.60-1.20) mg/dL Est GFR ( Amer) (> 60) Est GFR (Non-Af Amer) (> 60) BUN/Creatinine Ratio (6-26) Glucose (70-105) mg/dL Calculated Osmolality (280-300) Calcium (8.6-10.3) mg/dL Total Bilirubin (0.3-1.0) mg/dL AST (13-39) Units/L ALT (7-52) Units/L Alkaline Phosphatase (34-104) Units/L Serum Total Protein (6.4-8.9) g/dL Albumin (3.5-5.7) g/dL Globulin (2.4-3.5) g/dL Albumin/Globulin Ratio (1.1-2.2) Urine Color (Yellow) Urine Clarity (Clear) Urine pH (5.0-8.0) pH Units Ur Specific [place] (1.010-1.025) Urine Protein (Neg-Trace) mg/dL Urine Glucose (UA) (Normal) mg/dL Urine Ketones (Negative) mg/dL Urine Blood (Negative) Urine Nitrite (Negative) Urine Bilirubin (Negative) Urine Urobilinogen (Normal) mg/dL Ur Leukocyte Esterase (Negative) Urine Microscopic RBC (0-3) per hpf Urine Microscopic WBC (0-3) per hpf Ur Squamous Epith Cells (None-Few) per lpf Urine Bacteria (None-Few) per hpf Hyaline Casts (None-Few) per lpf Ur Culture Indicated? (NO) - Radiology Data Radiology results reviewed: Yes I reviewed the patient's radiology results. Gallbladder Ultrasound 07/10/17 18:05 IMPRESSION: 1. The liver has a nodular border and appears to be small suggesting cirrhosis. 2. No focal hepatic masses 3. Cholelithiasis with evidence for sludge in the gallbladder. Gallbladder wall is mildly thickened. No definite pericholecystic fluid. Cholecystitis could give this appearance. 4. The common bile duct is at the upper limits of normal in size. D/ / Amauri Steele MD / Amauri Steele MD Interpreting Provider: Amauri Steele MD - EKG Data EKG #1 EKG attestation: Yes I reviewed and interpreted this EKG. EKG results narrative: 2017 at 17:01. Sinus tachycardia. Rate 120. CA 153. QRS 93. QTC 392. Left axis deviation. No acute ST elevation or depression.
--- NOTE | 2017-07-10 18:08 | Emergency Department Note ---
START Narrative - START START: I examined this patient and my medical decision-making was reviewed with the Resident Physician, Dae Lopez. I agree with the documented findings, disposition and treatment plan as described except to the extent set forth below. I have personally performed a face to face evaluation on this patient. I have reviewed and agree with the care plan. Briefly: Patient has non-autoimmune hepatitis. Patient is being followed up by Dr. Paz. Patient's nausea vomiting and her urine turning orange. She has slight jaundice. She is ill-appearing but nontoxic. Tachycardic at rest at 119. T bili is 6.5, just great markedly elevated and the highest level she has ever had. CBC within normal limits. Her transaminases are also elevated. This is been a difference and just 24 hours since he was last measured. Patient will get a right upper quadrant ultrasound. Admission is anticipated. We offered analgesics and IV fluids the patient initially declined but we will re-attacks apposition and asked her to reconsider for IV fluids. Disposition pending.
[2017-07-10] MEDS ORDERED: 0.9 % Sodium Chloride 1,000 ML IVC ONE (18:18)
[2017-07-10 19:54] LABS: INR 1.3
[2017-07-10 19:56] LABS: Activated Partial Thrombo Time 26.1 Seconds (26.0-36.0)
[2017-07-10] MEDS ORDERED: Naloxone 0.4 MG/ML INJ IVP PRN (20:44)
[2017-07-10] MEDS ORDERED: Ketorolac 30 MG/ML VIAL IVP PRN (20:44)
[2017-07-10] MEDS ORDERED: *HR* HYDROcodone/Acet 5/325 mg TABLET PO PRN (20:44)
[2017-07-10] MEDS ORDERED: Ondansetron 4 MG/2 ML VIAL IVP PRN (20:44)
[2017-07-10] MEDS ORDERED: Furosemide 40 MG TABLET PO PRN (20:49)
[2017-07-10] MEDS ORDERED: Dextrose Gel 15 GM/37.5 ML TUBE PO PRN ×2 (20:52)
[2017-07-10] MEDS ORDERED: *HR* Dextrose 50 % in Water (Syg) 50 ML SYRINGE IVP PRN (20:52)
[2017-07-10] MEDS ORDERED: D5% in Water 1,000 ML IVC PRN (20:52)
--- NOTE | 2017-07-10 20:58 | Internal Med History&Physical ---
<Sariah Pabon - Last Filed: 07/10/17 22:26> Date of Encounter: 07/10/17 Time of Encounter: 22:00 Internal Medicine - H&P: HPI History of present illness: Ms. Johnston is a 72 year old female Internal Medicine - H&P: Meds Budesonide [Entocort EC] 3 mg PO QAM 11/21/16 [History] Carvedilol 12.5 mg PO DAILY 11/21/16 [History] Cholecalciferol (D-3) [Vitamin D] 2,000 unit PO DAILY 11/21/16 [History] Furosemide [Lasix] 40 mg PO DAILY PRN 11/21/16 [History] Omeprazole [PriLOSEC] 20 mg PO DAILY 11/21/16 [History] Spironolactone [Aldactone] 100 mg PO DAILY PRN 11/21/16 [History] Azathioprine [Imuran] 75 mg PO DAILY 07/10/17 [History] Insulin Glargine,Hum.rec.anlog [Basaglar Kwikpen U-100] 10 unit SQ HS 07/10/17 [ History] 3 Allergy/AdvReac Type Severity Reaction Status Date / Time No Known Allergies Allergy Verified 06/10/17 14:50 All Systems PM: A 10-system review of systems was performed and is negative for pertinent findings except as documented above in the HPI. - Constitutional Vitals: Temp Pulse Resp BP Pulse Ox 98.1 F 118 16 146/83 97 07/10/17 20:59 07/10/17 20:59 07/10/17 20:59 07/10/17 20:59 07/10/17 20:59 Internal Med - H&P Results - Labs CBC & Chem 7: 07/10/17 16:54 07/10/17 16:54 - Attending Attestation I examined this patient and my medical decision-making was reviewed with the Resident Physician, Amauri Woodard. I agree with the documented findings, disposition and treatment plan as described except to the extent set forth below. 72-year-old female patient with history of autoimmune hepatitis which has been dealing with for about 20 years now presented to the ER with complaints of acute onset nausea and right upper quadrant abdominal pain that began this afternoon. She has been following up with the [facility] gastroenterology for management of her autoimmune hepatitis. One week back, her dosage of budesonide was decreased from 3 mg by mouth twice daily to 3 mg by mouth once a day. She has not had any flareups recently. She had previously been evaluated for gallbladder disease but was not recommended any cholecystectomy. On examination, patient is awake and alert. Heart sounds are normal. Breath sounds were normal. She has mild right upper quadrant tenderness. Zaman's sign negative. Lab work shows elevated bilirubin about her baseline at 6.5. She also has elevated AST 20 and alkaline phosphatase levels. Gallbladder ultrasound showed cholelithiasis with gallbladder sludge and gallbladder wall thickening. Patient does have cirrhotic findings. Acute right upper quadrant abdominal pain: Possible flare up of autoimmune hepatitis versus acute cholecystitis. Consult GI and surgery. Pain control. Antiemetic agents. Gentle IV hydration. Autoimmune hepatitis: Recent decrease in steroid dose. We will consult GI for recommendations. Consider discussion with the patient's casting molder in the morning regarding treatment plan. Thrombocytopenia: Platelet counts are actually better than her baseline. Prior DVT: Patient had prior DVT in November and was on Xarelto since then. Recently stopped due to petechial rash noted on her face by her life skills instructor. No indication at this time to resume Xarelto. Will place patient on low-dose heparin for DVT prophylaxis. Diabetes mellitus type 2: Monitor blood sugars. Sliding scale insulin. Nothing by mouth for now and diabetic diet and patient disability. Essential hypertension: Monitor blood pressure. Resume home medications. <Amauri Woodard - Last Filed: 07/10/17 23:04> Date of Encounter: 07/10/17 Time of Encounter: 20:15 Assessment and Plan (1) RUQ pain Current visit: Yes Status: Acute RUQ pain likely secondary to autoimmune hepatitive vs other causes like cholecystitis Total bili 6.5, AST 138 ALT 65 (above baseline), Alk Phos 263, INR 1.3. UA shows increased Bili Gallbladder ultrasound demonstrates cholelithiasis with increased sludge Surgery was consulted in the ED and suggested a GI evaluation We will consult both Surgery and GI for an eval in the morning Control pain with norco and toradol Patient will remain NPO pending GI/Surgery consult (2) Nausea and vomiting Current visit: Yes Status: Acute Nausea and vomiting likely secondary to hepatitis vs. other causes like cholecystitis Patient has not been able to tolerate PO intake Mildly tachycardic but does not appear massively volume depleted Continue management of N/V With Zofran, IV Fluids Qualifiers: Vomiting type: cyclical vomiting Vomiting Intractability: non-intractable Qualified Code(s): G43.A0 - Cyclical vomiting, not intractable (3) Autoimmune hepatitis Current visit: Yes Status: Chronic Chronic autoimmune hepatitis managed by [facility] Treated with Budesonide and Azothiaprine AST/ALT elevated above baseline, Alk Phos elevated above baseline We will give IVF hydration and wait for GI consult (4) Thrombocytopenia Current visit: Yes Status: Acute Thrombocytopenia, chronic Managed by Dr. 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 insulin use: with intermodal owner operator truck driver use Qualified Code(s): E08.65 - Diabetes mellitus due to underlying condition with hyperglycemia; Z79.4 - correction (current) use of insulin; Z79.4 - buttermilk drier operator (current) use of insulin; Z79.4 - correction (current ) use of insulin; Z79.4 - buttermilk drier operator (current) use of insulin (6) HTN (hypertension) Current visit: No Status: Chronic HTN, appropriately managed Qualifiers: Hypertension type: essential hypertension Qualified Code(s): I10 - Essential (primary) hypertension (7) Obesity (BMI 30.0-34.9) Current visit: Yes Status: Chronic (8) DVT prophylaxis Current visit: Yes Status: Acute SQ Heparin for now, however may transition to lovenox if platelets drop Internal Medicine - H&P: HPI Chief complaint: Nausea and vomiting Admitted From: Emergency Dept Plans for Post Hospital Care: Home History of present illness: Ms. 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 She says that she was at home sitting in her chair at around 1:30pm today at which time she became suddenly nauseated, and she began to vomit. She says that she has had about 5 episodes of non-bilious, non-bloody vomiting since that time. Nothing has been particularly helpful for this, and nothing makes it any worse. She has not tried to eat anything since it began. She does admit to having problems with vomiting many years ago when she first started having trouble with her liver, however she has been fine recently. In addition to this nausea and vomiting she has had some abdominal pain that is not severe in the upper portions of her abdomen. The pain is not constant, but is intermittent and dull in nature. She denies chest pains, shortness of breath, cough, back pain, increased edema. The patient does admit to a petechial rash which began on . She said that she was on Xarelto for DVTs previously, but had to stop it a bit over a week ago due to spine injections at the pain clinic. The patient follows with Dr. Ortiz at [facility] for her liver disease. Past Med Surg Social Fam HX - Past Medical History Medical history: diabetes, hypertension, other Psychiatric history: no psych history - Past Surgical History Surgical History: , cataract, hysterectomy - Social History Smoking Status: Never smoker Smokeless Tobacco Status: No Alcohol use: none Drug use: none - Family History Mother Living Status: Hx Family Neurologic Disorders: Yes (ALZHEIMERS) All Systems PM: A 10-system review of systems was performed and is negative for pertinent findings except as documented above in the HPI. Review of systems: Constitutional: Denies fevers, chills, weight loss, generalized fatigue Head/Neck: Denies MARKHAM, neck stiffness EENT: Denies vision changes/blurriness, rhinorrhea, congestion, sore throat CVS: Denies chest pain, palpitations, AVILA, orthopnea, edema, PND Pulm: Denies SOB, cough, sputum, hematemesis, wheezing GI: Admits to intermittent abdominal pain, Nausea and Vomiting. Chronic diarrhea : Denies dysuria, increased frequency, urgency, hematuria Heme: Denies ease of bleeding or bruising MSK: Denies joint pain, limited ROM Skin: Denies rashes, ulcers, color changes Neuro: Denies MARKHAM, paresthesias, focal deficits, ataxia - Constitutional Vitals: Temp Pulse Resp BP Pulse Ox 97.5 F L 116 18 137/81 96 07/10/17 17:00 07/10/17 19:34 07/10/17 19:34 07/10/17 19:34 07/10/17 19:34 Exam: Gen.: Vitals noted. No acute distress. AAOx3 HEENT: PERRL/EOMI, oropharynx clear, Normocephalic, atraumatic Neck: Supple. No adenopathy. Cardiac: RRR, no murmur, +S1/S2 Pulmonary: CTA bilaterally, no wheezes, rales or rhonchi, equal chest expansion Abdomen: Soft, tender in RUQ to palpation, + Zaman sign Back: Nontender throughout. MSK: ROM intact, no joint swelling noted Extremities: +1 edema in LE b/l Skin: petechial rash noted on patient's left face and upper extremities Neuro: A&Ox3, moves all extremities, no focal deficits Psych: Appropriate mood and behavior Internal Med - H&P Results - Labs CBC & Chem 7: 07/10/17 16:54 07/10/17 16:54
[2017-07-10] MEDS: Insulin LISPRO 300 UNITS/3 ML VIAL SQ SCH (21:55)
[2017-07-10 22:13] LABS: Bilirubin,Direct 3.4 mg/dL (0.0-0.2); Bilirubin,Indirect 3.1 mg/dL (0.0-1.2)
[2017-07-10] MEDS: 0.9 % Sodium Chloride w KCl 20 MEQ/1,000 ML MLS IVC SCH (22:14)
[2017-07-11 04:42] LABS: Hematocrit 30.3 % (35.3-44.9); Hemoglobin 10.5 g/dL (11.5-15.4); Immature Platelets 5.8 % (1.1-6.1); Mean Corpuscular HGB Conc 34.7 g/dL (31.6-35.5); Mean Corpuscular Hemoglobin 37.5 pg (28.0-33.3); Mean Corpuscular Volume 108.2 fL (83.0-100.0); Mean Platelet Volume 11.3 fL (9.4-12.4); Red Cell Distribution Width 15.5 % (11.5-14.5)
[2017-07-11 05:05] LABS: Alanine Aminotransferase 57 Units/L (7-52); Albumin 2.7 g/dL (3.5-5.7); Albumin/Globulin Ratio 1.2 (1.1-2.2); Alkaline Phosphatase 197 Units/L (34-104); Aspartate Amino Transferase 75 Units/L (13-39); BUN/Creatinine Ratio 23 (6-26); Bilirubin,Total 7.8 mg/dL (0.3-1.0); Blood Urea Nitrogen 17 mg/dL (8-23); Calcium 8.2 mg/dL (8.6-10.3); Carbon Dioxide 26 mEq/L (23-29); Chloride 108 mEq/L (98-107); Globulin 2.2 g/dL (2.4-3.5); Glucose 141 mg/dL (70-105); Magnesium 1.5 mg/dL (1.6-2.6); Osmolality,Calculated 292 (280-300); Potassium 4.1 mEq/L (3.5-5.1); Sodium 139 mEq/L (136-145); Total Protein 4.9 g/dL (6.4-8.9); eGFR For African Americans > 60 (> 60); eGFR For Non-African Americans > 60 (> 60)
[2017-07-11] MEDS: *HR* Heparin 5,000 UNIT/ML VIAL SQ SCH ×2 (06:03→17:20)
[2017-07-11 06:34] LABS: Platelet Count 80 K/mcL (140-400)
[2017-07-11 06:37] LABS: Lymphocytes # 0.5 K/mcL (0.6-4.6); Monocytes # 0.5 K/mcL (0.0-1.3); Neutrophils # 6.7 K/mcL (1.6-8.9); Platelet Estimate Decreased (Normal)
[2017-07-11 06:38] LABS: Anisocytosis 1+ (Not Present); Macrocytosis Present (Not Present)
[2017-07-11] MEDS: 0.9 % Sodium Chloride w KCl 20 MEQ/1,000 ML MLS IVC SCH ×2 (08:19→17:20)
[2017-07-11] MEDS: Insulin LISPRO 300 UNITS/3 ML VIAL SQ SCH ×4 (08:19→20:32)
[2017-07-11] MEDS: (Budesonide [Entocort Ec] 3 MG) PO SCH (08:22)
[2017-07-11] MEDS ORDERED: Ibuprofen 200 MG TABLET PO ONE (08:39)
--- NOTE | 2017-07-11 10:05 | Electrocardiograph Report ---
[place] [id number] Test Date: 2017-07-10 Pat Name: Perri Johnston Department: 102 Room: 3B43 Gender: F Director Emergency: Jennifer : 1945 Requested By: Che Moreno Order Number: [id number] Reading MD: Mary Thomas Measurements Intervals [place] Rate: 120 P: 47 GA: 153 QRS: -59 QRSD: 93 T: 46 QT: 321 QTc: 392 Interpretive Statements SINUS TACHYCARDIA LEFT ANTERIOR FASCICULAR BLOCK [QRS AXIS <= -45, QR IN I, RS IN II] Electronically Signed On 07-11-2017 10:03:38 EST by Mary Thomas
[2017-07-11] MEDS ORDERED: *HR* LORazepam 0.5 MG TABLET PO ONE (10:30)
--- NOTE | 2017-07-11 13:14 | Event Note ---
Date of Encounter: 07/11/17 Time of Encounter: 13:12 Spoke with ER last night and asked that they consult GI to evaluate and workup patient before we get involved as it may not be her gallbladder but her autoimmune hepatitis. Discussed with Dr Christina today and he agrees, he will evaluate patient and if he feels her gallbladder is an issue he will call us., Thanks.
--- NOTE | 2017-07-11 15:53 | Gastroenterology Consult Note ---
Date of Encounter: 07/10/17 Time of Encounter: 09:00 - Time Spent With Patient Total time spent is greater than 50% in coordination of care (as documented) at patient's floor/unit and/or counseling patient: GI History of Present Illness - Data of Consult Requesting Physician: Laureen Musa CNP - Consult Narrative History of present illness: Ms. Johnston is a 72 year old morbidly female with history of autoimmune hepatitis she is being seen by Dr. Bowen at [facility]. She apparently came complaining of some epigastric and pain to the emergency room. There she was noted to have a bilirubin of 6.5 the transaminases were elevated urine R turned dark 3 days ago. She denies any significant abdominal pain at this time is no history of fever or chills. She was having difficulty with budesonide in the form of nausea and was first started she is taking 3 a day and then gradually is being tapered off and now she is down to just 3 mg a day for most recent visit her to applied computer science professor. Past Med Surg Social Fam HX - Past Medical History Medical history: diabetes, hypertension, other Psychiatric history: no psych history - Past Surgical History Surgical History: , cataract, hysterectomy - Social History Smoking Status: Never smoker Smokeless Tobacco Status: No Alcohol use: none Drug use: none - Family History Mother Living Status: Hx Family Neurologic Disorders: Yes (ALZHEIMERS) - Constitutional Vitals: Temp Pulse Resp BP Pulse Ox 98.2 F 85 14 100/63 94 07/11/17 11:40 07/11/17 11:40 07/11/17 11:40 07/11/17 11:40 07/11/17 11:40 Results - Labs CBC & Chem 7: 07/13/17 04:05 07/13/17 04:05 Labs: Last Result Calcium 8.2 mg/dL (8.6-10.3) L 07/11/17 04:12 Entire Visit Hgb 10.5 g/dL (11.5-15.4) L D 07/11/17 04:12 Hct 30.3 % (35.3-44.9) L 07/11/17 04:12 PT 14.0 Seconds (9.4-12.1) H 07/10/17 19:41 Total Bilirubin 7.8 mg/dL (0.3-1.0) H 07/11/17 04:12 AST 75 Units/L (13-39) H 07/11/17 04:12 ALT 57 Units/L (7-52) H 07/11/17 04:12 - ABG ABG results: PT/INR, D-dimer PT 14.0 Seconds (9.4-12.1) H 07/10/17 19:41 - Impressions Impressions Abdomen MRI 07/11/17 10:05 IMPRESSION: Motion limited study. Choledocholithiasis with multiple calculi in the distal common bile duct measuring up to 10 mm. Hepatic cirrhosis with a small amount of perihepatic fluid. D/ / 07/11/2017 14:09:31 Americo Olivier MD / chris Interpreting Provider: Americo Olivier MD Consult Discharge Plan - Plan Instructions: Prednisone (By mouth) Additional Instructions: [facility] will be calling you with an appointment follow up. Please call your provider at [facility] if you do not hear from them in 1-2 business days. Follow-up appointments: If there is not an appointment listed below, please call your physician and schedule a follow-up appointment. If you have congestive heart failure and your symptoms return, make an appointment with your physician. Medication List: Carry an up to date list of medications you are taking at all time. We have given you an updated medication list including any new medications that you have been prescribed. Please provide that list to your primary provider Symptoms: If your condition changes or you experience any of the following symptoms, notify your physician immediately: Unusual or worsening pain, fever, persistent nausea and vomiting, bleeding, increase in swelling (especially in your legs), sudden weight gain, extreme dizziness, chest pain, increased drainage or redness from a wound or incision. Go to the emergency department if you experience a problem with breathing. Weights: If you have a history of swelling or shortness of breath, weigh yourself daily and notify your physician if you have a weight gain of two or more pounds in one day or 5 or more pounds in a week. If you experience any of the warning signs for stroke: Sudden numbness or weakness of the face, arm or leg; especially on one side of the body, sudden confusion, trouble speaking or understanding, sudden trouble seeing in one or both eyes, sudden trouble walking, dizziness, loss of balance or coordination, sudden sever headache with no cause; Call 911 or go to the emergency room. Stroke is a medical emergency. Some risk factors for stroke: Age, cigarette smoking, diabetes, excessive alcohol consumption, family history , high blood pressure, overweight, physical inactivity, prior stroke, heart attack, diagnosis of carotid artery stenosis or other artery disease. If you smoke, STOP: Smoking or tobacco use significantly increases your risk of heart and lung disease. Your chance of disease greatly increases if you continue to smoke. For more information, call the [employer] [place] quit line for smoking cessation QUIT-NOW ( ) Referrals: Carlos Harley Jr, MD [Primary Care Provider] - Prescriptions: levoFLOXacin [Levaquin] 500 mg PO DAILY #5 tablet predniSONE [PredniSONE] 20 mg PO DAILY #7 tablet - Attending Attestation Ms Johnston is admitted with jaundice, and abnormal liver enzymes. She has known AIH. She is in no pain. Reviewed all her scans.. Suspect exacerbation of AIH secondary possibly to tapering - will put her on Prednisone 20 mg orally for now (she is already on 75 of Azathioprine). Doing well with po intake. Add Rocephin. Plan close watch through the weekend and she can follow up with her regular applied computer science professor, Dr Ortiz at [facility] I had a long discussion wiht her and her son, Benjamin.
[2017-07-11] MEDS: cefTRIAXone 1,000 MG in Water for inj. (sterile) 20 ML 10 ML IVP SCH (17:18)
[2017-07-11] MEDS: predniSONE 20 MG TABLET PO SCH (17:19)
--- NOTE | 2017-07-11 17:39 | Internal Med Progress Note ---
Date of Encounter: 07/11/17 Time of Encounter: 17:37 - Assessment and plan (1) Autoimmune hepatitis Current Visit: Yes Status: Chronic Assessment and plan: 72-year-old female patient with history of autoimmune hepatitis which she has been dealing with for about 20 years, presented to the ER with complaints of acute onset nausea and right upper quadrant abdominal pain duration one day. She has been following up with the [facility] gastroenterology for management of her autoimmune hepatitis. One week ago her dosage of budesonide was decreased from 3 mg by mouth twice daily to 3 mg by mouth once a day. She has not had any flareups recently. She had previously been evaluated for gallbladder disease but was not recommended for cholecystectomy. She had mild right upper quadrant tenderness. Zaman's sign was negative. Elevated bilirubin near her baseline at 6.5, now 7.8, direct bili 3.4 and indirect bili 3.1 Elevated AST 138 trended down to 75 ALTs 65 now 57 alkaline phosphatase 263 level trended down to 197 GI following Surgical service awaiting for workup of autoimmune hepatitis (2) RUQ pain Current Visit: Yes Status: Acute Assessment and plan: GI consult MRI revealed Choledocholithiasis with multiple calculi in the distal common bile duct measuring up to 10 mm. Hepatic cirrhosis with a small amount of perihepatic fluid. Surgery was consult and but they have discussed with Dr. Christina today and they will await for patient workup before becoming involved as this may be secondary to autoimmune hepatitis Continue to evaluate the patient Monitor lab work (3) Diabetes mellitus Current Visit: Yes Status: Acute Assessment and plan: Diabetic diet Monitor blood sugars before meals and at bedtime with sliding scale insulin Qualifiers: Diabetes mellitus type: due to underlying condition Diabetes mellitus complication status: with hyperglycemia Diabetes mellitus assistant terminal manager insulin use: with snf use Qualified Code(s): E08.65 - Diabetes mellitus due to underlying condition with hyperglycemia; Z79.4 - FPC (current) use of insulin; Z79.4 - truck terminal manager (current) use of insulin; Z79.4 - truck terminal manager (current ) use of insulin; Z79.4 - FPC (current) use of insulin (4) DVT prophylaxis Current Visit: Yes Status: Acute Assessment and plan: Patient had prior provoked DVT in November of the left lower extremity and [place] was stopped on secondary to a petechial rash on her face by her fire safety inspector We will place on low-dose heparin subcutaneous for DVT prophylaxis (5) HTN (hypertension) Current Visit: No Status: Chronic Assessment and plan: Monitor blood pressure Resume home medications Blood pressure is stable Qualifiers: Hypertension type: essential hypertension Qualified Code(s): I10 - Essential (primary) hypertension (6) Nausea and vomiting Current Visit: Yes Status: Resolved Assessment and plan: Now tolerating diet Zofran on an as-needed basis Qualifiers: Vomiting type: cyclical vomiting Vomiting Intractability: non-intractable Qualified Code(s): G43.A0 - Cyclical vomiting, not intractable (7) Thrombocytopenia Current Visit: Yes Status: Chronic Assessment and plan: Platelet counts are about baseline Watch for drop in platelets and signs of bleeding - Subjective Interval history: Patient felt warm and damp this morning. She denied any chest pain or shortness of breath. She does have some abdominal bloating. She also has a rash on her face that she states was secondary to her Zarontin which was stopped last . She was on Zarontin for treatment of the DVT that occurred on November 17. It was provoked. She states she usually has edema of her lower extremities. She states she does have issues with her abdomen from an enlarged spleen and some cirrhosis problems. - Constitutional Vitals: Temp Pulse Resp BP Pulse Ox 97.7 F 86 16 102/61 95 07/11/17 15:59 07/11/17 15:59 07/11/17 15:59 07/11/17 15:59 07/11/17 15:59 General appearance: Present: A&O X 3, pleasant, no acute distress, answers questions appropriately - Head Head exam: Present: atraumatic, normocephalic - Eye Eye exam: Present: conjuntiva pink, sclera anicteric - Neck Neck exam general surgery: Present: supple, trachea midline. Absent: lymphadenopathy - Respiratory Respiratory exam: Present: CTAB. Absent: accessory muscle use, rales, rhonchi, wheezes - Cardiovascular Cardiovascular exam: Present: RRR, +S1, +S2. Absent: diastolic murmur, gallop, rubs, systolic murmur - GI/Abdominal GI/Abdominal exam: Present: normal bowel sounds, splenomegaly, no peritoneal signs. Absent: tenderness Additional comments: Softly distended, nontender to palpation - Extremities Exam Extremities exam: Present: pedal edema, warm, radial pulses palpable and symmetrical. Absent: calf tenderness, cyanotic Additional comments: Increased edema of the left lower extremity more than the right - Neurological Exam Neurological exam: Present: oriented X3, no focal deficits. Absent: pronater drift, facial droop, speech deficit - Skin Skin exam: Present: dry, rash Additional comments: Rash on the left side of her face as well as on her arms and legs. The facial rash about 5 days out, and on her extremities longer per her report. Also scattered areas of ecchymosis and some scabbed areas where she has bumped herself Internal Medicine: Result - Labs CBC & Chem 7: 07/11/17 04:12 07/11/17 04:12 Labs: Short CBC 07/11/17 Range/Units 04:12 WBC 7.6 (4.3-11.1) K/mcL Hgb 10.5 L D (11.5-15.4) g/dL Hct 30.3 L (35.3-44.9) % Plt Count 80 L (140-400) K/mcL Neutrophils # 6.7 (1.6-8.9) K/mcL BMP 07/11/17 04:12 Sodium 139 Potassium 4.1 Chloride 108 H Carbon Dioxide 26 BUN 17 Creatinine 0.75 Glucose 141 H Calcium 8.2 L Liver Function 07/11/17 Range/Units 04:12 Total Bilirubin 7.8 H (0.3-1.0) mg/dL AST 75 H (13-39) Units/L ALT 57 H (7-52) Units/L Alkaline Phosphatase 197 H (34-104) Units/L Albumin 2.7 L (3.5-5.7) g/dL - ABG Interpretation ABG results: PT/INR, D-dimer PT 14.0 Seconds (9.4-12.1) H 07/10/17 19:41 - Impressions Impressions Abdomen MRI 07/11/17 10:05 IMPRESSION: Motion limited study. Choledocholithiasis with multiple calculi in the distal common bile duct measuring up to 10 mm. Hepatic cirrhosis with a small amount of perihepatic fluid. D/ / 07/11/2017 14:09:31 Americo Olivier MD / chris Interpreting Provider: Americo Olivier MD Consult Discharge Plan - Plan Referrals: Carlos Harley Jr, MD [Primary Care Provider] -
[2017-07-12] MEDS: 0.9 % Sodium Chloride w KCl 20 MEQ/1,000 ML MLS IVC SCH ×2 (03:19→14:26)
[2017-07-12] MEDS: *HR* Heparin 5,000 UNIT/ML VIAL SQ SCH ×2 (05:17→16:44)
[2017-07-12] MEDS: Insulin LISPRO 300 UNITS/3 ML VIAL SQ SCH ×4 (08:23→19:33)
[2017-07-12] MEDS: cefTRIAXone 1,000 MG in Water for inj. (sterile) 20 ML 10 ML IVP SCH (08:31)
[2017-07-12] MEDS: predniSONE 20 MG TABLET PO SCH (08:34)
[2017-07-12] MEDS: (Budesonide [Entocort Ec] 3 MG) PO SCH (08:34)
[2017-07-12 09:52] LABS: Hematocrit 31.3 % (35.3-44.9); Hemoglobin 10.7 g/dL (11.5-15.4); Mean Corpuscular HGB Conc 34.2 g/dL (31.6-35.5); Mean Corpuscular Hemoglobin 37.9 pg (28.0-33.3); Mean Platelet Volume 11.6 fL (9.4-12.4); Red Blood Count 2.82 M/mcL (3.82-4.97); Red Cell Distribution Width 15.2 % (11.5-14.5)
[2017-07-12 09:54] LABS: Platelet Count 76 K/mcL (140-400)
[2017-07-12 10:11] LABS: Lymphocytes # 0.2 K/mcL (0.6-4.6); Macrocytosis Present (Not Present); Neutrophils # 5.4 K/mcL (1.6-8.9); Platelet Estimate Decreased (Normal)
[2017-07-12 10:16] LABS: Alanine Aminotransferase 46 Units/L (7-52); Albumin 2.8 g/dL (3.5-5.7); Albumin/Globulin Ratio 1.2 (1.1-2.2); Alkaline Phosphatase 174 Units/L (34-104); Aspartate Amino Transferase 46 Units/L (13-39); BUN/Creatinine Ratio 16 (6-26); Blood Urea Nitrogen 13 mg/dL (8-23); Calcium 8.5 mg/dL (8.6-10.3); Carbon Dioxide 24 mEq/L (23-29); Chloride 109 mEq/L (98-107); Glucose 123 mg/dL (70-105); Osmolality,Calculated 289 (280-300); Potassium 3.9 mEq/L (3.5-5.1); Sodium 139 mEq/L (136-145); Total Protein 5.2 g/dL (6.4-8.9); eGFR For African Americans > 60 (> 60); eGFR For Non-African Americans > 60 (> 60)
[2017-07-12 10:17] LABS: Globulin 2.4 g/dL (2.4-3.5)
--- NOTE | 2017-07-12 14:20 | Gastroenterology Progress Note ---
Date of Encounter: 07/13/17 Time of Encounter: 14:20 - Time Spent With Patient Total time spent is greater than 50% in coordination of care (as documented) at patient's floor/unit and/or counseling patient: - Subjective Interval history: She is doing much better. Tolerating her diet very well. I discussed with Dr Ortiz at [facility]. He will call her and follow up wiht her Abdomen: soft, nontender. Good bowel sounds Discharge and follow up with Dr Ortiz - Constitutional Vitals: Temp Pulse Resp BP Pulse Ox 98.0 F 81 16 142/85 94 07/12/17 11:53 07/12/17 11:53 07/12/17 11:53 07/12/17 11:53 07/12/17 11:53 Results - Labs CBC & Chem 7: 07/13/17 04:05 07/13/17 04:05 Labs: Last Result Calcium 8.5 mg/dL (8.6-10.3) L 07/12/17 09:24 Entire Visit Hgb 10.7 g/dL (11.5-15.4) L 07/12/17 09:24 Hct 31.3 % (35.3-44.9) L 07/12/17 09:24 PT 14.0 Seconds (9.4-12.1) H 07/10/17 19:41 Total Bilirubin 9.0 mg/dL (0.3-1.0) H 07/12/17 09:24 AST 46 Units/L (13-39) H 07/12/17 09:24 ALT 46 Units/L (7-52) 07/12/17 09:24 - ABG ABG results: PT/INR, D-dimer PT 14.0 Seconds (9.4-12.1) H 07/10/17 19:41 Consult Discharge Plan - Plan Instructions: Prednisone (By mouth) Additional Instructions: [facility] will be calling you with an appointment follow up. Please call your provider at [facility] if you do not hear from them in 1-2 business days. Follow-up appointments: If there is not an appointment listed below, please call your physician and schedule a follow-up appointment. If you have congestive heart failure and your symptoms return, make an appointment with your physician. Medication List: Carry an up to date list of medications you are taking at all time. We have given you an updated medication list including any new medications that you have been prescribed. Please provide that list to your primary provider Symptoms: If your condition changes or you experience any of the following symptoms, notify your physician immediately: Unusual or worsening pain, fever, persistent nausea and vomiting, bleeding, increase in swelling (especially in your legs), sudden weight gain, extreme dizziness, chest pain, increased drainage or redness from a wound or incision. Go to the emergency department if you experience a problem with breathing. Weights: If you have a history of swelling or shortness of breath, weigh yourself daily and notify your physician if you have a weight gain of two or more pounds in one day or 5 or more pounds in a week. If you experience any of the warning signs for stroke: Sudden numbness or weakness of the face, arm or leg; especially on one side of the body, sudden confusion, trouble speaking or understanding, sudden trouble seeing in one or both eyes, sudden trouble walking, dizziness, loss of balance or coordination, sudden sever headache with no cause; Call 911 or go to the emergency room. Stroke is a medical emergency. Some risk factors for stroke: Age, cigarette smoking, diabetes, excessive alcohol consumption, family history , high blood pressure, overweight, physical inactivity, prior stroke, heart attack, diagnosis of carotid artery stenosis or other artery disease. If you smoke, STOP: Smoking or tobacco use significantly increases your risk of heart and lung disease. Your chance of disease greatly increases if you continue to smoke. For more information, call the [place] tobacco quit line for smoking cessation -NOW ( ) Referrals: Carlos Harley Jr, MD [Primary Care Provider] - Prescriptions: levoFLOXacin [Levaquin] 500 mg PO DAILY #5 tablet predniSONE [PredniSONE] 20 mg PO DAILY #7 tablet
--- NOTE | 2017-07-12 18:16 | Internal Med Progress Note ---
Date of Encounter: 07/12/17 Time of Encounter: 18:14 - Assessment and plan (1) Autoimmune hepatitis Current Visit: Yes Status: Chronic Assessment and plan: 72-year-old female patient with history of autoimmune hepatitis which she has been dealing with for about 20 years, presented to the ER with complaints of acute onset nausea and right upper quadrant abdominal pain duration one day. She has been following up with the [facility] gastroenterology for management of her autoimmune hepatitis. One week ago her dosage of budesonide was decreased from 3 mg by mouth twice daily to 3 mg by mouth once a day. She has not had any flareups recently. She had previously been evaluated for gallbladder disease but was not recommended for cholecystectomy. She had mild right upper quadrant tenderness. Zaman's sign was negative. Elevated bilirubin was near her baseline at 6.5, now 9, direct bili 3.4 and indirect bili 3.1 Elevated AST 138 trended down to 75 to 46 ALTs 65 now 57 to 46 alkaline phosphatase 263 level trended down to 197 to 174 GI following and plans to talk to her physician at [facility] tomorrow morning to determine a plan of care. He would like to discharge her in the a.m. and have her follow up in [facility] the next day or so. He is managing dosing her prednisone Surgical service will not be needed as this is not an acute cholecystitis per GI service (2) RUQ pain Current Visit: Yes Status: Acute Assessment and plan: GI consult and following MRI revealed Choledocholithiasis with multiple calculi in the distal common bile duct measuring up to 10 mm. Hepatic cirrhosis with a small amount of perihepatic fluid. Surgery was consult and but they have discussed with Dr. Christina today and they will await for patient workup before becoming involved as this may be secondary to autoimmune hepatitis, likely not acute cholecystitis Continue to evaluate the patient Monitor lab work (3) Diabetes mellitus Current Visit: Yes Status: Acute Assessment and plan: Diabetic diet, tolerating well Monitor blood sugars before meals and at bedtime with sliding scale insulin Qualifiers: Diabetes mellitus type: due to underlying condition Diabetes mellitus complication status: with hyperglycemia Diabetes mellitus senior care insulin use: with terminal supervisor use Qualified Code(s): E08.65 - Diabetes mellitus due to underlying condition with hyperglycemia; Z79.4 - care home (current) use of insulin; Z79.4 - care home (current) use of insulin; Z79.4 - termination clerk (current ) use of insulin; Z79.4 - termination clerk (current) use of insulin (4) DVT prophylaxis Current Visit: Yes Status: Acute Assessment and plan: Patient had prior provoked DVT in November of the left lower extremity and Pickett was stopped on secondary to a petechial rash 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 (5) HTN (hypertension) Current Visit: No Status: Chronic Assessment and plan: Monitor blood pressure Resume home medications Blood pressure remains stable Qualifiers: Hypertension type: essential hypertension Qualified Code(s): I10 - Essential (primary) hypertension (6) Nausea and vomiting Current Visit: Yes Status: Resolved Assessment and plan: esolved, Now tolerating diet Zofran on an as-needed basis Qualifiers: Vomiting type: cyclical vomiting Vomiting Intractability: non-intractable Qualified Code(s): G43.A0 - Cyclical vomiting, not intractable (7) Thrombocytopenia Current Visit: Yes Status: Chronic Assessment and plan: Platelet counts are about baseline, now 76 Watch for drop in platelets and signs of bleeding - Subjective Interval history: Patient denied any chest pain or shortness of breath. She does have some abdominal bloating. She also has a rash on her face that she states was secondary to her xarelto which was stopped last . She was on xarelto for treatment of the DVT that occurred on November 17. It was provoked. She states she usually has edema of her lower extremities. She states she does have issues with her abdomen from an enlarged spleen and some cirrhosis problems. He feels a little better today than yesterday. - Constitutional Vitals: Temp Pulse Resp BP Pulse Ox 98.0 F 89 16 124/76 95 07/12/17 16:24 07/12/17 16:24 07/12/17 16:24 07/12/17 16:24 07/12/17 16:24 General appearance: Present: cooperative, A&O X 3, pleasant, no acute distress, obese, answers questions appropriately - Head Head exam: Present: atraumatic, normocephalic - Eye Eye exam: Present: PERRL, scleral icterus, conjuntiva pink Additional comments: Slight scleral icterus - Neck Neck exam general surgery: Present: supple, trachea midline. Absent: lymphadenopathy - Respiratory Respiratory exam: Present: decreased breath sounds, CTAB. Absent: accessory muscle use, rales, rhonchi, wheezes - Cardiovascular Cardiovascular exam: Present: RRR, +S1, +S2. Absent: diastolic murmur, gallop, rubs, systolic murmur - GI/Abdominal GI/Abdominal exam: Present: normal bowel sounds, soft, splenomegaly, no peritoneal signs. Absent: distended, guarding, rigid, tenderness - Extremities Exam Extremities exam: Present: pedal edema, warm, radial pulses palpable and symmetrical. Absent: calf tenderness, cyanotic - Neurological Exam Neurological exam: Present: oriented X3, no focal deficits. Absent: pronater drift, facial droop, speech deficit - Skin Skin exam: Present: dry, intact Additional comments: T petechiae to face, scattered rash over arms and legs with some abrasions and scabbed areas Internal Medicine: Result - Labs CBC & Chem 7: 07/12/17 09:24 07/12/17 09:24 Labs: Short CBC 07/12/17 Range/Units 09:24 WBC 5.6 (4.3-11.1) K/mcL Hgb 10.7 L (11.5-15.4) g/dL Hct 31.3 L (35.3-44.9) % Plt Count 76 L (140-400) K/mcL Neutrophils # 5.4 (1.6-8.9) K/mcL BMP 07/12/17 09:24 Sodium 139 Potassium 3.9 Chloride 109 H Carbon Dioxide 24 BUN 13 Creatinine 0.81 Glucose 123 H Calcium 8.5 L Liver Function 07/12/17 Range/Units 09:24 Total Bilirubin 9.0 H (0.3-1.0) mg/dL AST 46 H (13-39) Units/L ALT 46 (7-52) Units/L Alkaline Phosphatase 174 H (34-104) Units/L Albumin 2.8 L (3.5-5.7) g/dL - ABG Interpretation ABG results: PT/INR, D-dimer PT 14.0 Seconds (9.4-12.1) H 07/10/17 19:41 Consult Discharge Plan - Plan Referrals: Carlos Harley Jr, MD [Primary Care Provider] -
[2017-07-13] MEDS: 0.9 % Sodium Chloride w KCl 20 MEQ/1,000 ML MLS IVC SCH (01:20)
[2017-07-13 04:37] LABS: Mean Platelet Volume 11.2 fL (9.4-12.4); Monocytes % 5.1 %; Red Blood Count 2.52 M/mcL (3.82-4.97)
[2017-07-13 04:39] LABS: Basophils % 0.3 %; Eosinophils # 0.1 K/mcL (0.0-0.6); Eosinophils % 1.6 %; Hematocrit 27.9 % (35.3-44.9); Hemoglobin 9.4 g/dL (11.5-15.4); Immature Granulocytes % 1.6 % (0-4); Immature Platelets 6.1 % (1.1-6.1); Lymphocytes # 0.2 K/mcL (0.6-4.6); Mean Corpuscular HGB Conc 33.7 g/dL (31.6-35.5); Mean Corpuscular Hemoglobin 37.3 pg (28.0-33.3); Mean Corpuscular Volume 110.7 fL (83.0-100.0); Monocytes # 0.2 K/mcL (0.0-1.3); Neutrophils # 3.2 K/mcL (1.6-8.9); Red Cell Distribution Width 15.1 % (11.5-14.5); Segmented Neutrophils % 87.4 %
[2017-07-13 04:57] LABS: Platelet Count 72 K/mcL (140-400)
[2017-07-13] MEDS: *HR* Heparin 5,000 UNIT/ML VIAL SQ SCH (05:37)
[2017-07-13] MEDS: Insulin LISPRO 300 UNITS/3 ML VIAL SQ SCH ×2 (07:28→11:14)
[2017-07-13 07:59] LABS: Anisocytosis 1+ (Not Present); Macrocytosis Present (Not Present); Platelet Estimate Slight Decrease (Normal)
[2017-07-13] MEDS: cefTRIAXone 1,000 MG in Water for inj. (sterile) 20 ML 10 ML IVP SCH (08:42)
[2017-07-13] MEDS: predniSONE 20 MG TABLET PO SCH (08:42)
[2017-07-13 08:49] LABS: Alanine Aminotransferase 45 Units/L (7-52); Albumin 2.5 g/dL (3.5-5.7); Albumin/Globulin Ratio 1.1 (1.1-2.2); Alkaline Phosphatase 167 Units/L (34-104); Aspartate Amino Transferase 50 Units/L (13-39); Bilirubin,Total 6.5 mg/dL (0.3-1.0); Blood Urea Nitrogen 16 mg/dL (8-23); Calcium 8.3 mg/dL (8.6-10.3); Carbon Dioxide 24 mEq/L (23-29); Chloride 110 mEq/L (98-107); Globulin 2.2 g/dL (2.4-3.5); Glucose 129 mg/dL (70-105); Osmolality,Calculated 291 (280-300); Potassium 3.8 mEq/L (3.5-5.1); Sodium 139 mEq/L (136-145); Total Protein 4.7 g/dL (6.4-8.9)
[2017-07-13 09:24] LABS: BUN/Creatinine Ratio 18 (6-26); eGFR For African Americans > 60 (> 60); eGFR For Non-African Americans > 60 (> 60)
[2017-07-13] MEDS: (Budesonide [Entocort Ec] 3 MG) PO SCH (10:40)
[2017-07-13 16:14] VITALS: BP 132/77
--- NOTE | 2017-07-13 16:26 | Discharge Summary ---
Date of Encounter: 07/13/17 Time of Encounter: 16:21 - Discharge Diagnosis (1) Autoimmune hepatitis Priority: Primary Status: Chronic Comments: 72-year-old female patient with history of autoimmune hepatitis which she has been dealing with for about 20 years, presented to the ER with complaints of acute onset nausea and right upper quadrant abdominal pain duration one day. She has been following up with the [facility] gastroenterology for management of her autoimmune hepatitis. One week ago her dosage of budesonide was decreased from 3 mg by mouth twice daily to 3 mg by mouth once a day. She has not had any flareups recently. She had previously been evaluated for gallbladder disease but was not recommended for cholecystectomy. She had mild right upper quadrant tenderness. Zaman's sign was negative. Elevated bilirubin was near her baseline at 6.5, now 9, direct bili 3.4 and indirect bili 3.1 Elevated AST 138 trended down to 75 to 46 ALTs 65 now 57 to 46 alkaline phosphatase 263 level trended down to 197 to 174 GI following and talked to her physician Dr Ortiz at [facility] to determine a plan of care. She is to follow-up with Dr. Ortiz in the next 2 days at [facility] for further management. She has been discharged on prednisone 20 mg daily and 3 days of Levaquin. Surgical service will not be needed as this is not an acute cholecystitis per GI service (2) RUQ pain Priority: Primary Status: Acute Comments: MRI revealed Choledocholithiasis with multiple calculi in the distal common bile duct measuring up to 10 mm. Hepatic cirrhosis with a small amount of perihepatic fluid. Surgery was consulted and but they have discussed with Dr. Christina and they will await for patient workup before becoming involved as this may be secondary to autoimmune hepatitis, likely not acute cholecystitis per Dr Sanford Saenz wishes the patient to go to [facility] for further workup and evaluation. This was discussed with the patient and she is in agreement. Her abdominal pain has resolved, she just complains of a little bloating. (3) Diabetes mellitus Priority: Secondary Status: Chronic Comments: Tolerating her diabetic diet We will resume her home medications on discharge Qualifiers: Diabetes mellitus type: due to underlying condition Diabetes mellitus complication status: with hyperglycemia Diabetes mellitus retirement insulin use: with retirement use Qualified Code(s): E08.65 - Diabetes mellitus due to underlying condition with hyperglycemia; Z79.4 - rodent exterminator (current) use of insulin; Z79.4 - rodent exterminator (current) use of insulin; Z79.4 - rodent exterminator (current ) use of insulin; Z79.4 - [facility] (current) use of insulin (4) HTN (hypertension) Priority: Secondary Status: Chronic Comments: Blood pressure has been stable Resume her home medications Qualifiers: Hypertension type: essential hypertension Qualified Code(s): I10 - Essential (primary) hypertension (5) Thrombocytopenia Priority: Secondary Status: Chronic Comments: Platelets 72 today Follow-up at [facility] - Discharge Medications Prescriptions: levoFLOXacin [Levaquin] 500 mg PO DAILY #5 tablet predniSONE [PredniSONE] 20 mg PO DAILY #7 tablet Home Medications: Budesonide [Entocort EC] 3 mg PO QAM 11/21/16 [History] Carvedilol 12.5 mg PO DAILY 11/21/16 [History] Cholecalciferol (D-3) [Vitamin D] 2,000 unit PO DAILY 11/21/16 [History] Furosemide [Lasix] 40 mg PO DAILY PRN 11/21/16 [History] Omeprazole [PriLOSEC] 20 mg PO DAILY 11/21/16 [History] Spironolactone [Aldactone] 100 mg PO DAILY PRN 11/21/16 [History] Azathioprine [Imuran] 75 mg PO DAILY 07/10/17 [History] Insulin Glargine,Hum.rec.anlog [Basaglar Kwikpen U-100] 10 unit SQ HS 07/10/17 [ History] levoFLOXacin [Levaquin] 500 mg PO DAILY #5 tablet 07/13/17 [Rx] predniSONE [PredniSONE] 20 mg PO DAILY #7 tablet 07/13/17 [Rx] Allergies/Adverse Reactions: 3 Allergy/AdvReac Type Severity Reaction Status Date / Time No Known Allergies Allergy Verified 06/10/17 14:50 Date of admission: 07/12/17 08:18 Primary care physician: Carlos Harley Jr, MD Discharging clinician: Deena Wells Anticipated date of discharge: 07/13/17 - Patient Status Disposition: Home, Self-Care Condition: Good Functional capacity at discharge: independent ambulation Overall status at discharge: patient is progressing back to baseline - Discharge Instructions Instructions: Prednisone (By mouth) Follow Up With: Carlos Harley Jr, MD [Primary Care Provider] - Additional Instructions: [facility] will be calling you with an appointment follow up. Please call your provider at [facility] if you do not hear from them in 1-2 business days. Follow-up appointments: If there is not an appointment listed below, please call your physician and schedule a follow-up appointment. If you have congestive heart failure and your symptoms return, make an appointment with your physician. Medication List: Carry an up to date list of medications you are taking at all time. We have given you an updated medication list including any new medications that you have been prescribed. Please provide that list to your primary provider Symptoms: If your condition changes or you experience any of the following symptoms, notify your physician immediately: Unusual or worsening pain, fever, persistent nausea and vomiting, bleeding, increase in swelling (especially in your legs), sudden weight gain, extreme dizziness, chest pain, increased drainage or redness from a wound or incision. Go to the emergency department if you experience a problem with breathing. Weights: If you have a history of swelling or shortness of breath, weigh yourself daily and notify your physician if you have a weight gain of two or more pounds in one day or 5 or more pounds in a week. If you experience any of the warning signs for stroke: Sudden numbness or weakness of the face, arm or leg; especially on one side of the body, sudden confusion, trouble speaking or understanding, sudden trouble seeing in one or both eyes, sudden trouble walking, dizziness, loss of balance or coordination, sudden sever headache with no cause; Call 911 or go to the emergency room. Stroke is a medical emergency. Some risk factors for stroke: Age, cigarette smoking, diabetes, excessive alcohol consumption, family history , high blood pressure, overweight, physical inactivity, prior stroke, heart attack, diagnosis of carotid artery stenosis or other artery disease. If you smoke, STOP: Smoking or tobacco use significantly increases your risk of heart and lung disease. Your chance of disease greatly increases if you continue to smoke. For more information, call the [place] tobacco quit line for smoking cessation QUIT-NOW ( ) - Diet and Activity Activity: resume usual activities as tolerated Diet: advance to your usual diet Interval History: Patient is resting comfortably. She denies shortness of breath, chest pain, fever, chills , changes in bowel or bladder. She does have a little abdominal bloating but her pain is better today. She is in agreement to go to [facility] for follow-up the next day or so. Dr. Keyes talked to her and she is understanding of the process. Hospital course: Please refer to the assessment and plan for details of this admission - Time Spent with Patient Total time spent providing and/or coordinating discharge services: Less than 30 minutes - Constitutional Vitals: Temp Pulse Resp BP Pulse Ox 97.4 F L 83 16 132/77 97 07/13/17 16:12 07/13/17 16:12 07/13/17 16:12 07/13/17 16:12 07/13/17 16:12 General appearance: Present: cooperative, A&O X 3, pleasant, no acute distress, obese, answers questions appropriately - Head Head exam: Present: atraumatic, normocephalic - Eye Eye exam: Present: PERRL, conjuntiva pink, sclera anicteric Pupils: Present: PERRL - Neck Neck exam general surgery: Present: supple, trachea midline. Absent: lymphadenopathy - Respiratory Respiratory exam: Present: CTAB. Absent: accessory muscle use, rales, rhonchi, wheezes - Cardiovascular Cardiovascular exam: Present: RRR, +S1, +S2. Absent: diastolic murmur, gallop, rubs, systolic murmur - GI/Abdominal GI/Abdominal exam: Present: hepatomegaly, normal bowel sounds, soft, splenomegaly, no peritoneal signs. Absent: distended, guarding, tenderness - Extremities Exam Extremities exam: Present: pedal edema, warm, radial pulses palpable and symmetrical. Absent: calf tenderness, cyanotic - Neurological Exam Neurological exam: Present: CN II-XII intact, oriented X3, no focal deficits. Absent: pronater drift, facial droop, speech deficit - Skin Skin exam: Present: dry, intact, petechiae, warm
== END 2017-07-13 17:30 | disposition home or self-care (01) | DRG 443 ==
LOC: EMEROO 16:20 → 3BNU 16:20
PROVIDERS: ADMIT Internal Medicine; ATTEND Registered Nurse

== ENCOUNTER 2017-12-15 12:52 | Inpatient (IN) ==
--- NOTE | 2017-12-15 13:04 | Emergency Department Note ---
Disposition Clinical Impression: Hyperammonemia, Hepatic encephalopathy Disposition: Admitted As Inpatient Condition: Fair General Adult HPI - General Chief complaint: ED Altered Mental Status Stated complaint: Altered Mental Status Time Seen by Provider: 12/15/17 12:55 - Related Data Home Medications Medication Instructions Recorded Confirmed Budesonide [Entocort EC] 3 mg PO QAM 11/21/16 12/15/17 Carvedilol 12.5 mg PO DAILY 11/21/16 12/15/17 Cholecalciferol (D-3) [Vitamin D] 2,000 unit PO DAILY 11/21/16 12/15/17 Furosemide [Lasix] 40 mg PO DAILY PRN 11/21/16 12/15/17 Spironolactone [Aldactone] 100 mg PO BID PRN 11/21/16 12/15/17 Insulin Glargine,Hum.rec.anlog 10 unit SQ HS 07/10/17 12/15/17 [Basaglar Kwikpen U-100] Allergies Allergy/AdvReac Type Severity Reaction Status Date / Time No Known Allergies Allergy Verified 11/16/17 13:24 Past Medical History - Past Medical History Medical history: Reports: diabetes, hepatitis, hypertension, other Surgical history: Reports: , cataract, hysterectomy Psychiatric history: Reports: no psych history 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 - Social History Smoking Status: Never smoker Smokeless Tobacco Status: No Alcohol use: Reports: none Drug use: Reports: none Course Vital Signs Temperature 97.7 F 12/15/17 13:00 Pulse Rate 77 12/15/17 13:00 Respiratory Rate 16 12/15/17 13:00 Blood Pressure 131/81 12/15/17 13:00 O2 Sat by Pulse Oximetry 98 12/15/17 13:00 Temperature 98.8 F 12/16/17 11:59 Pulse Rate 106 12/16/17 11:59 Respiratory Rate 18 12/16/17 11:59 Blood Pressure 96/64 12/16/17 11:59 O2 Sat by Pulse Oximetry 96 12/16/17 11:59 Oxygen Delivery Oxygen Delivery Room Air Medical Decision Making - Lab Data Result diagrams: 12/16/17 03:27 12/16/17 03:27 Lab Results 12/15/17 12/15/17 12/15/17 Range/Units 13:16 13:21 13:21 WBC 4.9 (4.3-11.1) K/mcL RBC 2.60 L (3.82-4.97) M/mcL Hgb 9.9 L (11.5-15.4) g/dL Hct 28.7 L (35.3-44.9) % MCV 110.4 H (83.0-100.0) fL MCH 38.1 H (28.0-33.3) pg MCHC 34.5 (31.6-35.5) g/dL RDW 15.0 H (11.5-14.5) % Plt Count 60 L (140-400) K/mcL MPV 11.6 (9.4-12.4) fL Immature Gran % 4.9 H (0-4) % Seg Neutrophils % 82.5 % Lymphocytes % 6.0 % Monocytes % 6.0 % Eosinophils % 0.4 % Basophils % 0.2 % Neutrophils # 4.0 (1.6-8.9) K/mcL Lymphocytes # 0.3 L (0.6-4.6) K/mcL Monocytes # 0.3 (0.0-1.3) K/mcL Eosinophils # 0.0 (0.0-0.6) K/mcL Basophils # 0.0 (0.0-0.2) K/mcL Platelet Estimate Decreased L (Normal) Immature Plt Fraction 5.9 (1.1-6.1) % Macrocytosis Present A (Not Present) PT 12.0 (9.4-12.1) Seconds INR 1.1 APTT 25.1 L (26.0-36.0) Seconds Sodium (136-145) mEq/L Potassium (3.5-5.1) mEq/L Chloride (98-107) mEq/L Carbon Dioxide (23-29) mEq/L BUN (8-23) mg/dL Creatinine (0.60-1.20) mg/dL Est GFR ( Amer) (> 60) Est GFR (Non-Af Amer) (> 60) BUN/Creatinine Ratio (6-26) Glucose (70-105) mg/dL POC Glucose (70-99) mg/dL Calculated Osmolality (280-300) Calcium (8.6-10.3) mg/dL Total Bilirubin (0.3-1.0) mg/dL Direct Bilirubin (0.0-0.2) mg/dL Indirect Bilirubin (0.0-1.2) mg/dL AST (13-39) Units/L ALT (7-52) Units/L Alkaline Phosphatase (34-104) Units/L Ammonia (16-53) mcmol/L Troponin I (< 0.04) ng/mL Serum Total Protein (6.4-8.9) g/dL Albumin (3.5-5.7) g/dL Globulin (2.4-3.5) g/dL Albumin/Globulin Ratio (1.1-2.2) Urine Color Yellow (Yellow) Urine Clarity Clear (Clear) Urine pH 7.5 (5.0-8.0) pH Units Ur Specific [place] 1.011 (1.010-1.025) Urine Protein Negative (Neg-Trace) mg/dL Urine Glucose (UA) Normal (Normal) mg/dL Urine Ketones Negative (Negative) mg/dL Urine Blood Negative (Negative) Urine Nitrite Negative (Negative) Urine Bilirubin Negative (Negative) Urine Urobilinogen Normal (Normal) mg/dL Ur Leukocyte Esterase Trace H (Negative) Urine Microscopic RBC 0-3 (0-3) per hpf Urine Microscopic WBC 3-5 H (0-3) per hpf Ur Squamous Epith Cells Many H (None-Few) per lpf Urine Bacteria None Seen (None-Few) per hpf Hyaline Casts None Seen (None-Few) per lpf Urine Yeast Many H (None Seen) per hpf Ur Culture Indicated? NO. A (NO) 12/15/17 12/15/17 12/15/17 Range/Units 13:21 13:21 14:46 WBC (4.3-11.1) K/mcL RBC (3.82-4.97) M/mcL Hgb (11.5-15.4) g/dL Hct (35.3-44.9) % MCV (83.0-100.0) fL MCH (28.0-33.3) pg MCHC (31.6-35.5) g/dL RDW (11.5-14.5) % Plt Count (140-400) K/mcL MPV (9.4-12.4) fL Immature Gran % (0-4) % Seg Neutrophils % % Lymphocytes % % Monocytes % % Eosinophils % % Basophils % % Neutrophils # (1.6-8.9) K/mcL Lymphocytes # (0.6-4.6) K/mcL Monocytes # (0.0-1.3) K/mcL Eosinophils # (0.0-0.6) K/mcL Basophils # (0.0-0.2) K/mcL Platelet Estimate (Normal) Immature Plt Fraction (1.1-6.1) % Macrocytosis (Not Present) PT (9.4-12.1) Seconds INR APTT (26.0-36.0) Seconds Sodium 139 (136-145) mEq/L Potassium 4.2 (3.5-5.1) mEq/L Chloride 103 (98-107) mEq/L Carbon Dioxide 29 (23-29) mEq/L BUN 29 H (8-23) mg/dL Creatinine 1.19 (0.60-1.20) mg/dL Est GFR ( Amer) 54 L (> 60) Est GFR (Non-Af Amer) 45 L (> 60) BUN/Creatinine Ratio 24 (6-26) Glucose 256 H (70-105) mg/dL POC Glucose 242 H (70-99) mg/dL Calculated Osmolality 303 H (280-300) Calcium 9.8 (8.6-10.3) mg/dL Total Bilirubin 1.1 H (0.3-1.0) mg/dL Direct Bilirubin 0.3 H (0.0-0.2) mg/dL Indirect Bilirubin 0.8 (0.0-1.2) mg/dL AST 22 (13-39) Units/L ALT 25 (7-52) Units/L Alkaline Phosphatase 103 (34-104) Units/L Ammonia 112 H (16-53) mcmol/L Troponin I < 0.03 (< 0.04) ng/mL Serum Total Protein 6.0 L (6.4-8.9) g/dL Albumin 3.0 L (3.5-5.7) g/dL Globulin 3.0 (2.4-3.5) g/dL Albumin/Globulin Ratio 1.0 L (1.1-2.2) Urine Color (Yellow) Urine Clarity (Clear) Urine pH (5.0-8.0) pH Units Ur Specific [place] (1.010-1.025) Urine Protein (Neg-Trace) mg/dL Urine Glucose (UA) (Normal) mg/dL Urine Ketones (Negative) mg/dL Urine Blood (Negative) Urine Nitrite (Negative) Urine Bilirubin (Negative) Urine Urobilinogen (Normal) mg/dL Ur Leukocyte Esterase (Negative) Urine Microscopic RBC (0-3) per hpf Urine Microscopic WBC (0-3) per hpf Ur Squamous Epith Cells (None-Few) per lpf Urine Bacteria (None-Few) per hpf Hyaline Casts (None-Few) per lpf Urine Yeast (None Seen) per hpf Ur Culture Indicated? (NO) Attestation Statement - Attestation Attestation: I examined this patient and my medical decision-making was reviewed with the Resident Physician. I agree with the documented findings, disposition and treatment plan as described except to the extent set forth below. [id number] time provided Patient presents with altered mentation. She arrives by EMS from the [facility]. History of cirrhosis. Somnolent but protecting her airway upon arrival. Home medication list reviewed by me
--- NOTE | 2017-12-15 13:22 | Emergency Department Note ---
Disposition Clinical Impression: Hyperammonemia, Hepatic encephalopathy Disposition: Admitted As Inpatient Condition: Fair Referrals: Carlos Harley Jr, MD [Primary Care Provider] - Forms: ED Satisfaction Letter Time of Disposition: 14:17 Altered Mental Status HPI - General Chief Complaint: ED Altered Mental Status Stated Complaint: Altered Mental Status Time Seen by Provider: 12/15/17 12:55 Source: patient, other Limitations: altered mental status Nursing Notes Reviewed: Yes Vital Signs Reviewed: Yes - History of Present Illness HPI Narrative: 72-year-old female presents from retirement with granddaughter bedside for evaluation of altered mental status. Description, per daughter, is that the patient appeared confused onset last night and throughout this morning. PMH: Hypertension, known hepatic cirrhosis secondary to chronic hepatitis. Insulin dependent diabetes. No history of ACS, cardiac dysrhythmia, or CVA. 3 weeks ago, patient was admitted to [facility] for upper abdominal pain. While there , she developed pancreatitis secondary to obstructing biliary gallstone. The gallstone was removed and patient was discharged approximately 1 week ago. Patient still has her gallbladder. ROS: Positive: As above Negative: Fever, chills, nausea, vomiting, chest pain, palpitations, dyspnea, diaphoresis, abdominal pain, changes in bowel or bladder habits, headache - Related Data Home Medications Medication Instructions Recorded Confirmed Budesonide [Entocort EC] 3 mg PO QAM 11/21/16 12/15/17 Carvedilol 12.5 mg PO DAILY 11/21/16 12/15/17 Cholecalciferol (D-3) [Vitamin D] 2,000 unit PO DAILY 11/21/16 12/15/17 Furosemide [Lasix] 40 mg PO DAILY PRN 11/21/16 12/15/17 Spironolactone [Aldactone] 100 mg PO BID PRN 11/21/16 12/15/17 Insulin Glargine,Hum.rec.anlog 10 unit SQ HS 07/10/17 12/15/17 [Basaglar Kwikpen U-100] Allergies Allergy/AdvReac Type Severity Reaction Status Date / Time No Known Allergies Allergy Verified 11/16/17 13:24 Past Medical History - Past Medical History Medical history: Reports: diabetes, hepatitis, hypertension, other Surgical history: Reports: , cataract, hysterectomy Psychiatric history: Reports: no psych history 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 In no acute distress. Head: atraumatic, normocephalic Eye: normal appearance, no scleral icterus, no conjunctival injection ENT: mucous membranes moist, normal external ear exam Neck: normal inspection, trachea midline, full ROM Chest: normal inspection, symmetric chest rise Respiratory: Poor respiratory effort. Bilateral breath sounds are diminished however clear without wheezing, crackles, or rhonchi. Cardiovascular: Regular rate and rhythm. No clicks, rubs, gallops, or murmors. Normal heart sounds. 3+ pitting pedal edema from the patella to the plantar surface of the foot with fluid-filled blister on the dorsum of right foot. Abdomen: Obese. Bowel sounds present normoactive x-4 quadrants. Abdomen is soft, nondistended, and nontender. No guarding or rebound. No organomegaly noted. Musculoskeletal: Spontaneously moving all extremities. Skin: warm, dry, intact. Neuro: Sensation light touch intact. Psych: Patient's affect is appropriate for situation. - General Limitations: altered mental status General appearance: appears intoxicated, lethargic Course Course Narrative: On examination, patient is pleasant however confused. While in the emergency department she believes she still [facility] retirement. She does know the president monse Walker however does not know the date or year. She has no complaints. Serum hematology shows anemia with hemoglobin 9.9; this is similar to patient's most recent labs. Additionally, she is thrombocytopenic which also her chronic baseline level. Serum chemistry Elevated ammonia at 112. I discussed the patient with the admitting hospitalist, Dr. Jackson, who agrees to accept the patient for continued evaluation and management of hepatic encephalopathy and elevated ammonia. Patient has received lactulose 30 mg by mouth. The admitting hospitalist request that I also had blood cultures which have been ordered. EKG dated 15 December 2017 at 13:11 interpreted as sinus rhythm with a rate of 77. MI 149, QRS, QTC 418. Left axis. Nonspecific ST-T changes. Compared to previous EKG dated 12/11/2017 showing no acute ischemic changes or comparison. Vital Signs Temperature 97.7 F 07/03/18 13:00 Pulse Rate 77 12/15/17 13:00 Respiratory Rate 16 12/15/17 13:00 Blood Pressure 131/81 12/15/17 13:00 O2 Sat by Pulse Oximetry 98 12/15/17 13:00 Temperature 97.7 F 12/15/17 13:00 Pulse Rate 77 12/15/17 14:26 Respiratory Rate 15 12/15/17 14:26 Blood Pressure 123/71 12/15/17 14:26 O2 Sat by Pulse Oximetry 98 12/15/17 14:26 Oxygen Delivery Oxygen Delivery Room Air Altered Mental Status - Lab Data Result diagrams: 12/15/17 13:21 12/15/17 13:21 Lab Results 12/15/17 12/15/17 12/15/17 Range/Units 13:16 13:21 13:21 WBC 4.9 (4.3-11.1) K/mcL RBC 2.60 L (3.82-4.97) M/mcL Hgb 9.9 L (11.5-15.4) g/dL Hct 28.7 L (35.3-44.9) % MCV 110.4 H (83.0-100.0) fL MCH 38.1 H (28.0-33.3) pg MCHC 34.5 (31.6-35.5) g/dL RDW 15.0 H (11.5-14.5) % Plt Count 60 L (140-400) K/mcL MPV 11.6 (9.4-12.4) fL Immature Gran % 4.9 H (0-4) % Seg Neutrophils % 82.5 % Lymphocytes % 6.0 % Monocytes % 6.0 % Eosinophils % 0.4 % Basophils % 0.2 % Neutrophils # 4.0 (1.6-8.9) K/mcL Lymphocytes # 0.3 L (0.6-4.6) K/mcL Monocytes # 0.3 (0.0-1.3) K/mcL Eosinophils # 0.0 (0.0-0.6) K/mcL Basophils # 0.0 (0.0-0.2) K/mcL Platelet Estimate Decreased L (Normal) Immature Plt Fraction 5.9 (1.1-6.1) % Macrocytosis Present A (Not Present) PT 12.0 (9.4-12.1) Seconds INR 1.1 APTT 25.1 L (26.0-36.0) Seconds Sodium (136-145) mEq/L Potassium (3.5-5.1) mEq/L Chloride (98-107) mEq/L Carbon Dioxide (23-29) mEq/L BUN (8-23) mg/dL Creatinine (0.60-1.20) mg/dL Est GFR ( Amer) (> 60) Est GFR (Non-Af Amer) (> 60) BUN/Creatinine Ratio (6-26) Glucose (70-105) mg/dL Calculated Osmolality (280-300) Calcium (8.6-10.3) mg/dL Total Bilirubin (0.3-1.0) mg/dL Direct Bilirubin (0.0-0.2) mg/dL Indirect Bilirubin (0.0-1.2) mg/dL AST (13-39) Units/L ALT (7-52) Units/L Alkaline Phosphatase (34-104) Units/L Ammonia (16-53) mcmol/L Troponin I (< 0.04) ng/mL Serum Total Protein (6.4-8.9) g/dL Albumin (3.5-5.7) g/dL Globulin (2.4-3.5) g/dL Albumin/Globulin Ratio (1.1-2.2) Urine Color Yellow (Yellow) Urine Clarity Clear (Clear) Urine pH 7.5 (5.0-8.0) pH Units Ur Specific [place] 1.011 (1.010-1.025) Urine Protein Negative (Neg-Trace) mg/dL Urine Glucose (UA) Normal (Normal) mg/dL Urine Ketones Negative (Negative) mg/dL Urine Blood Negative (Negative) Urine Nitrite Negative (Negative) Urine Bilirubin Negative (Negative) Urine Urobilinogen Normal (Normal) mg/dL Ur Leukocyte Esterase Trace H (Negative) Urine Microscopic RBC 0-3 (0-3) per hpf Urine Microscopic WBC 3-5 H (0-3) per hpf Ur Squamous Epith Cells Many H (None-Few) per lpf Urine Bacteria None Seen (None-Few) per hpf Hyaline Casts None Seen (None-Few) per lpf Urine Yeast Many H (None Seen) per hpf Ur Culture Indicated? NO. A (NO) 12/15/17 12/15/17 Range/Units 13:21 13:21 WBC (4.3-11.1) K/mcL RBC (3.82-4.97) M/mcL Hgb (11.5-15.4) g/dL Hct (35.3-44.9) % MCV (83.0-100.0) fL MCH (28.0-33.3) pg MCHC (31.6-35.5) g/dL RDW (11.5-14.5) % Plt Count (140-400) K/mcL MPV (9.4-12.4) fL Immature Gran % (0-4) % Seg Neutrophils % % Lymphocytes % % Monocytes % % Eosinophils % % Basophils % % Neutrophils # (1.6-8.9) K/mcL Lymphocytes # (0.6-4.6) K/mcL Monocytes # (0.0-1.3) K/mcL Eosinophils # (0.0-0.6) K/mcL Basophils # (0.0-0.2) K/mcL Platelet Estimate (Normal) Immature Plt Fraction (1.1-6.1) % Macrocytosis (Not Present) PT (9.4-12.1) Seconds INR APTT (26.0-36.0) Seconds Sodium 139 (136-145) mEq/L Potassium 4.2 (3.5-5.1) mEq/L Chloride 103 (98-107) mEq/L Carbon Dioxide 29 (23-29) mEq/L BUN 29 H (8-23) mg/dL Creatinine 1.19 (0.60-1.20) mg/dL Est GFR ( Amer) 54 L (> 60) Est GFR (Non-Af Amer) 45 L (> 60) BUN/Creatinine Ratio 24 (6-26) Glucose 256 H (70-105) mg/dL Calculated Osmolality 303 H (280-300) Calcium 9.8 (8.6-10.3) mg/dL Total Bilirubin 1.1 H (0.3-1.0) mg/dL Direct Bilirubin 0.3 H (0.0-0.2) mg/dL Indirect Bilirubin 0.8 (0.0-1.2) mg/dL AST 22 (13-39) Units/L ALT 25 (7-52) Units/L Alkaline Phosphatase 103 (34-104) Units/L Ammonia 112 H (16-53) mcmol/L Troponin I < 0.03 (< 0.04) ng/mL Serum Total Protein 6.0 L (6.4-8.9) g/dL Albumin 3.0 L (3.5-5.7) g/dL Globulin 3.0 (2.4-3.5) g/dL Albumin/Globulin Ratio 1.0 L (1.1-2.2) Urine Color (Yellow) Urine Clarity (Clear) Urine pH (5.0-8.0) pH Units Ur Specific [place] (1.010-1.025) Urine Protein (Neg-Trace) mg/dL Urine Glucose (UA) (Normal) mg/dL Urine Ketones (Negative) mg/dL Urine Blood (Negative) Urine Nitrite (Negative) Urine Bilirubin (Negative) Urine Urobilinogen (Normal) mg/dL Ur Leukocyte Esterase (Negative) Urine Microscopic RBC (0-3) per hpf Urine Microscopic WBC (0-3) per hpf Ur Squamous Epith Cells (None-Few) per lpf Urine Bacteria (None-Few) per hpf Hyaline Casts (None-Few) per lpf Urine Yeast (None Seen) per hpf Ur Culture Indicated? (NO) TPA Checklist - LKW: 3-4.5 hrs Add. Warnings/Precautions Patient/family understanding: The patient/family members have been counseled and understood the risk, benefit , and alternatives of treatment.
[2017-12-15 13:27] LABS: Bilirubin,Urine Negative (Negative); Blood,Urine Negative (Negative); Clarity,Urine Clear (Clear); Color,Urine Yellow (Yellow); Glucose,Urine (UA) Normal (Normal); Ketones,Urine Negative (Negative); Leukocyte Esterase,Urine Trace (Negative); Nitrite,Urine Negative (Negative); PH,Urine 7.5 pH Units (5.0-8.0); Protein,Urine Negative (Neg-Trace); Specific Gravity,Urine 1.011 (1.010-1.025); Urobilinogen,Urine Normal (Normal)
[2017-12-15 13:30] LABS: Bacteria,Urine None Seen per hpf (None-Few); Hyaline Casts,Urine None Seen per lpf (None-Few); Squamous Epithelial Cell,Urine Many per lpf (None-Few)
[2017-12-15 13:33] LABS: Basophils % 0.2 %; Eosinophils % 0.4 %
[2017-12-15 13:34] LABS: Hematocrit 28.7 % (35.3-44.9); Hemoglobin 9.9 g/dL (11.5-15.4); Immature Granulocytes % 4.9 % (0-4); Immature Platelets 5.9 % (1.1-6.1); Lymphocytes # 0.3 K/mcL (0.6-4.6); Mean Corpuscular HGB Conc 34.5 g/dL (31.6-35.5); Mean Corpuscular Hemoglobin 38.1 pg (28.0-33.3); Mean Corpuscular Volume 110.4 fL (83.0-100.0); Mean Platelet Volume 11.6 fL (9.4-12.4); Monocytes # 0.3 K/mcL (0.0-1.3); Segmented Neutrophils % 82.5 %
[2017-12-15 13:40] LABS: RBC,Urine 0-3 per hpf (0-3); Yeast,Urine Many per hpf (None Seen)
[2017-12-15 13:44] LABS: INR 1.1
[2017-12-15 13:47] LABS: Activated Partial Thrombo Time 25.1 Seconds (26.0-36.0); Platelet Count 60 K/mcL (140-400)
[2017-12-15 13:50] LABS: Macrocytosis Present (Not Present); Platelet Estimate Decreased (Normal)
[2017-12-15 13:57] LABS: Troponin I < 0.03 ng/mL (< 0.04)
[2017-12-15] MEDS ORDERED: Lactulose Oral Soln 20 GM/30 ML UDC PO ONE (14:02)
[2017-12-15 14:10] LABS: Alanine Aminotransferase 25 Units/L (7-52); Alkaline Phosphatase 103 Units/L (34-104); Aspartate Amino Transferase 22 Units/L (13-39); BUN/Creatinine Ratio 24 (6-26); Bilirubin,Direct 0.3 mg/dL (0.0-0.2); Bilirubin,Indirect 0.8 mg/dL (0.0-1.2); Bilirubin,Total 1.1 mg/dL (0.3-1.0); Blood Urea Nitrogen 29 mg/dL (8-23); Calcium 9.8 mg/dL (8.6-10.3); Carbon Dioxide 29 mEq/L (23-29); Chloride 103 mEq/L (98-107); Glucose 256 mg/dL (70-105); Osmolality,Calculated 303 (280-300); Potassium 4.2 mEq/L (3.5-5.1); Sodium 139 mEq/L (136-145); eGFR For African Americans 54 (> 60); eGFR For Non-African Americans 45 (> 60)
[2017-12-15] MEDS ORDERED: Naloxone 0.4 MG/ML INJ IVP PRN (15:17)
[2017-12-15] MEDS ORDERED: Acetaminophen 325 MG TABLET PO PRN (15:20)
[2017-12-15] MEDS ORDERED: Ibuprofen 400 MG TABLET PO PRN (15:20)
[2017-12-15] MEDS ORDERED: 0.9 % Sodium Chloride 1,000 ML IVC SCH (15:30)
[2017-12-15] MEDS ORDERED: Furosemide 40 MG TABLET PO PRN (15:54)
[2017-12-15] MEDS ORDERED: D5% in Water 1,000 ML IVC PRN (16:00)
[2017-12-15] MEDS ORDERED: Dextrose Gel 15 GM/37.5 ML TUBE PO PRN ×2 (16:00)
[2017-12-15] MEDS ORDERED: *HR* Dextrose 50 % in Water (Syg) 50 ML SYRINGE IVP PRN (16:00)
[2017-12-15] MEDS: Insulin LISPRO 300 UNITS/3 ML VIAL SQ SCH ×2 (16:30→20:48)
--- NOTE | 2017-12-15 16:43 | Internal Med History&Physical ---
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 Patient has had 1.5 weeks altered mentation, worse today Family admits to alternating periods of constipation and diarrhea, unaware of her current bowel patterns Likely, increased inflammation and bacterial load in gut from recent enteritis plays role Alternatively, consider SBP as possible source of infection, which could worsen We will bedside ultrasound abd tomorrow, consider paracentesis as needed Start lactulose BID with goal of 3 loose bowel movements per day Monitor mental status Repeat CMP in morning (2) Liver cirrhosis Current visit: Yes Status: Chronic 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 We will continue to monitor, treat encephalopathy with lactulose Consider hepatology consult as needed Qualifiers: Hepatic cirrhosis type: unspecified hepatic cirrhosis Ascites presence: with ascites Qualified Code(s): K74.60 - Unspecified cirrhosis of liver; R18.8 - Other ascites (3) Diabetes mellitus Current visit: Yes Status: Acute Acute on chronic DM2 with hyperglycemia Patient presents with poorly controlled glucose She does use insulin at home, family says control has been poor since she's been sick I will check A1C, place on low dose sliding scale insulin Accucheck ACHS Qualifiers: Diabetes mellitus type: type 2 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: with usp use Diabetes mellitus complication status: with hyperglycemia Qualified Code(s): E11.65 - Type 2 diabetes mellitus with hyperglycemia; Z79.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 (4) Anemia Current visit: Yes Status: Chronic Chronic anemia, appears to be stable Appears macrocytic in nature with MCV 110 Iron studies were checked on last admission, however may be unreliable in setting of liver disease I will check MMA, B12, Folate for nutritional deficiencies Repeat CBC in am Qualifiers: Anemia type: unspecified type Qualified Code(s): D64.9 - Anemia, unspecified (5) Chronic kidney disease (CKD) Current visit: Yes Status: Acute CKD3, stable Serum Cr 1.19, BUN 29 Continue with gentle hydration, avoid nephrotoxic agents Qualifiers: Chronic kidney disease stage: stage 3 (moderate) Qualified Code(s): N18.3 - Chronic kidney disease, stage 3 (moderate) (6) History of DVT (deep vein thrombosis) Current visit: Yes Status: Acute Cannot tolerate anticoagulation secondary to worsened bleeding and bruising We will use SCDs (7) Thrombocytopenia Current visit: Yes Status: Chronic Chronic, secondary to liver disease and hypersplenism Stable, no acute bleeding (8) HTN (hypertension) Current visit: No Status: Chronic Continue home meds Qualifiers: Hypertension type: essential hypertension Qualified Code(s): I10 - Essential (primary) hypertension (9) DVT prophylaxis Current visit: Yes Status: Acute Heparin cannot be tolerated, we will use SCDs Internal Medicine - H&P: HPI Chief complaint: AMS Admitted From: Emergency Dept Plans for Post Hospital Care: Transfer Longterm Care History of present illness: cc:"flu" HPI: Ms. Johnston is a 72 year old female who presents to the E.D. and complains of the "flu". I was previously alerted that the patient had an altered mental status. Her daughter reports that she has been in a confused state for the past 1.5 weeks. The daughter gives the majority of the history. She states that the patient was hospitalized at [facility] for 2 weeks with the diagnosis of pancreatitis. Around last she was seen at the [place] ED with similar symptoms. A CT scan was performed which showed inflammation of the lower bowel and some "pockets of air in her stomach" reportedly due to a prior procedure. Our ED transferred her to [facility] who reportedly found no concerning abnormalities outside of mild enteritis but decided to send her to a assisted where she has resided for at least several days. She previously lived alone in her home. Daughter reports no prior confusion. progressive. seems to fluctuate. Reports ability to have normal conversation with the patient while at other times she will be upset due to delusions of missing things that are in reality in her possession. She intermittently forgets the names of close relatives and is often unable to recognize them. Daughter reports her only complaint is abdominal and lower Ext fluid. Significantly, the patient has not had any prior history of, or treatment for hepatic encephalopathy according to my preceptors' review of the records and the daughter's history. She has had significant liver cirrhosis for 20 years and has only been treated in the past two years. Past Med Surg Social Fam HX - Past Medical History Medical history: diabetes, hepatitis, hypertension, other Additional medical history: autoimmune hepatitis Psychiatric history: no psych history - Past Surgical History Surgical History: , cataract, hysterectomy Additional surgical history: common bile duct surgery to remove gall stone - Social History Smoking Status: Never smoker Smokeless Tobacco Status: No Alcohol use: none Drug use: none - Family History Mother Living Status: Hx Family Neurologic Disorders: Yes ([facility]) Internal Medicine - H&P: Meds Budesonide [Entocort EC] 3 mg PO QAM 11/21/16 [History] Carvedilol 12.5 mg PO DAILY 11/21/16 [History] Cholecalciferol (D-3) [Vitamin D] 2,000 unit PO DAILY 11/21/16 [History] Furosemide [Lasix] 40 mg PO DAILY PRN 11/21/16 [History] Spironolactone [Aldactone] 100 mg PO BID PRN 11/21/16 [History] Insulin Glargine,Hum.rec.anlog [Basaglar Kwikpen U-100] 10 unit SQ HS 07/10/17 [ History] 3 Allergy/AdvReac Type Severity Reaction Status Date / Time No Known Allergies Allergy Verified 11/16/17 13:24 All Systems PM: ROS: general: daughter denies fevers at home. skin: daughter in law reports chronic extreme fragility of skin with abrasions and contusions HEENT:Daughter denies headache, vision trouble neck: heart: daughter denies history of heart issues lungs: daughter denies history of lung issues; patient denies shortness of breath abd: daughter reports "chronic" diarrhea at baseline. G/U: patient denies any trouble urinating, incontinence, burning with urination, hematuria MSK: Neuro: patient denies dizziness, significant fatigue, weakness. daughter in law reports difficulty with ambulation and possible bradykinesia since last visit at [facility]. psych: - Constitutional Vitals: Temp Pulse Resp BP Pulse Ox 97.4 F L 78 18 129/89 99 12/15/17 16:06 12/15/17 16:06 12/15/17 16:06 12/15/17 16:06 12/15/17 16:06 Exam: PE general: alert and oriented only to person and place but not time. appears sleepy. HEENT: head symmetric. heart: RRR no murmur gallop or rub lungs: CTA throughout abd: multiple contusions. mild jaundice with distension and caput medusa. normoactive bowel sounds with no bruits. unable to assess hepatosplenomegaly due to fluid. nontender in all quadrants, epigastric, and suprapubic areas. no palpable masses. Neuro: CN 2-12 intact except CN VIII - R ear gross hearing loss. strength 5/5 upper Ext, plantarF 5/5 lower Ext, other strength of lower Ext not assessed. sensation intact upper and lower Ext. Minimal asterixis. integumentary: many diffuse small abrasions in various stages of healing and small contusions. Internal Med - H&P Results - Labs CBC & Chem 7: 12/15/17 13:21 12/15/17 13:21 <Maynor Valderrama - Last Filed: 12/15/17 18:53> Date of Encounter: 12/15/17 Assessment and Plan (1) Acute hepatic encephalopathy Current visit: Yes Status: Acute (2) Hyperammonemia Current visit: Yes Status: Acute (3) Autoimmune hepatitis Current visit: No Status: Chronic (4) Liver cirrhosis Current visit: Yes Status: Chronic Qualifiers: Hepatic cirrhosis type: unspecified hepatic cirrhosis Ascites presence: with ascites Qualified Code(s): K74.60 - Unspecified cirrhosis of liver; R18.8 - Other ascites (5) Chronic kidney disease (CKD) Current visit: Yes Status: Acute Qualifiers: Chronic kidney disease stage: stage 3 (moderate) Qualified Code(s): N18.3 - Chronic kidney disease, stage 3 (moderate) (6) Diabetes mellitus Current visit: Yes Status: Acute Qualifiers: Diabetes mellitus type: type 2 Diabetes mellitus 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 Diabetes mellitus complication status: with hyperglycemia Qualified Code(s): E11.65 - Type 2 diabetes mellitus with hyperglycemia; Z79.4 - [facility] (current) use of insulin (7) Anemia Current visit: Yes Status: Chronic Qualifiers: Anemia type: other cause Other causes of anemia: chronic disease, other Qualified Code(s): D63.8 - Anemia in other chronic diseases classified elsewhere (8) Thrombocytopenia Current visit: Yes Status: Chronic (9) HTN (hypertension) Current visit: No Status: Chronic Qualifiers: Hypertension type: essential hypertension Qualified Code(s): I10 - Essential (primary) hypertension Internal Medicine - H&P: HPI History of present illness: Ms. Johnston is a 72 year old female All Systems PM: A 10-system review of systems was performed and is negative for pertinent findings except as documented above in the HPI. - Constitutional Vitals: Temp Pulse Resp BP Pulse Ox 97.4 F L 78 18 129/89 99 12/15/17 16:06 12/15/17 16:06 12/15/17 16:06 12/15/17 16:06 12/15/17 16:06 Internal Med - H&P Results - Labs CBC & Chem 7: 12/15/17 13:21 12/15/17 13:21 - Attending Attestation I examined this patient and my medical decision-making was reviewed with the Resident Physician on 12/15/17. I agree with the documented findings, disposition and treatment plan as described except to the extent set forth below. Ms Johnston is 72 y/o female with hx of autoimmune hepatitis brought to ED due to confusion. Pt denies pain or dyspnea. Family gives history. She has had increased swelling. No fever. She was recently in [facility] for edema as well. No prior hx of elevated ammonia and has not taken Lactulose in past. Exam alert Mucus membranes dry Heart distant Lungs diminished Asterixis present Abd soft. Ascites present. Caput medusa Edema present I/P 1. Hepatic encephalopathy 2. Autoimmune hepatitis Further diagnoses and plan as above. Requested records from [facility].
--- NOTE | 2017-12-15 17:32 | Electrocardiograph Report ---
[facility] Test Date: 2017-12-15 Pat Name: Perri Johnston Department: 103 Room: 2A43 Gender: F Joint Filler: : 1945 Requested By: Dany Rooney Order Number: [id number] Reading MD: Primitivo Biswas Measurements Intervals [place] Rate: 77 P: 12 MI: 149 QRS: -37 QRSD: 118 T: 45 QT: 386 QTc: 418 Interpretive Statements SINUS RHYTHM MARKED LEFT AXIS DEVIATION [QRS AXIS < -30] PROBABLE LATERAL MYOCARDIAL INFARCTION [35 ms Q WAVE IN I/aVL/V5/V6], OF INDETERMINATE AGE Left axis deviation POOR R WAVE PROGRESSION Electronically Signed On 12-15-2017 17:30:08 EDT by Primitivo Biswas
[2017-12-15] MEDS ORDERED: *HR* Heparin 5,000 UNIT/ML VIAL SQ SCH (18:00)
[2017-12-15] MEDS: Insulin DETEMIR 100 UNIT/ML X5UNITS SQ SCH (20:45)
[2017-12-16 03:44] LABS: Basophils % 0.4 %; Eosinophils % 0.7 %; Hematocrit 28.2 % (35.3-44.9); Hemoglobin 9.5 g/dL (11.5-15.4); Immature Granulocytes % 4.8 % (0-4); Lymphocytes # 0.4 K/mcL (0.6-4.6); Lymphocytes % 7.3 %; Mean Corpuscular HGB Conc 33.7 g/dL (31.6-35.5); Mean Corpuscular Hemoglobin 36.4 pg (28.0-33.3); Monocytes # 0.4 K/mcL (0.0-1.3); Monocytes % 6.3 %; Neutrophils # 4.5 K/mcL (1.6-8.9); Red Blood Count 2.61 M/mcL (3.82-4.97); Red Cell Distribution Width 15.5 % (11.5-14.5); Segmented Neutrophils % 80.5 %
[2017-12-16 03:45] LABS: Platelet Count 79 K/mcL (140-400)
[2017-12-16 03:51] LABS: INR 1.1; Prothrombin Time 12.8 Seconds (9.4-12.1)
[2017-12-16 04:06] LABS: Alanine Aminotransferase 24 Units/L (7-52); Albumin 2.8 g/dL (3.5-5.7); Alkaline Phosphatase 99 Units/L (34-104); Aspartate Amino Transferase 22 Units/L (13-39); BUN/Creatinine Ratio 25 (6-26); Bilirubin,Total 1.2 mg/dL (0.3-1.0); Blood Urea Nitrogen 27 mg/dL (8-23); Calcium 9.5 mg/dL (8.6-10.3); Carbon Dioxide 29 mEq/L (23-29); Chloride 106 mEq/L (98-107); Globulin 2.7 g/dL (2.4-3.5); Glucose 115 mg/dL (70-105); Magnesium 1.7 mg/dL (1.6-2.6); Osmolality,Calculated 298 (280-300); Phosphorous 3.5 mg/dL (2.7-4.5); Potassium 3.6 mEq/L (3.5-5.1); Sodium 141 mEq/L (136-145); Total Protein 5.5 g/dL (6.4-8.9); eGFR For African Americans > 60 (> 60); eGFR For Non-African Americans 51 (> 60)
[2017-12-16 04:35] LABS: Folate 15.6 ng/mL (3.0-16.0)
[2017-12-16] MEDS: Insulin LISPRO 300 UNITS/3 ML VIAL SQ SCH ×4 (07:52→21:39)
[2017-12-16 08:20] LABS: Estimated Average Glucose 140 mg/dl; Hemoglobin A1C 6.5 %
[2017-12-16] MEDS: Lactulose Oral Soln 20 GM/30 ML UDC PO SCH ×2 (08:38→14:01)
[2017-12-16] MEDS: Cholecalciferol (D-3) 1,000 UNIT TABLET PO SCH (08:38)
[2017-12-16] MEDS ORDERED: Lactulose Oral Soln 20 GM/30 ML UDC PO SCH (09:00)
[2017-12-16] MEDS ORDERED: (Budesonide [Entocort Ec] 3 MG) PO SCH (09:00)
[2017-12-16] MEDS ORDERED: OXYCODONE Oral CONC 10 MG/0.5 ML ORAL.SYG SL ONE (09:33)
--- NOTE | 2017-12-16 09:44 | Internal Med Progress Note ---
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 Patient has had 1.5 weeks altered mentation, worse today Family admits to alternating periods of constipation and diarrhea, unaware of her current bowel patterns Likely, increased inflammation and bacterial load in gut from recent enteritis plays role Alternatively, consider SBP as possible source of infection, which could worsen We will bedside ultrasound abd tomorrow, consider paracentesis as needed Start lactulose BID with goal of 3 loose bowel movements per day Monitor mental status Repeat CMP in morning 12/16 Worsened mental status Increase lactulose to TID, Add Rifaximin 400mg BID (2) Liver cirrhosis Current Visit: Yes Status: Chronic Assessment and plan: 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 We will continue to monitor, treat encephalopathy with lactulose Consider hepatology consult as needed Qualifiers: Hepatic cirrhosis type: unspecified hepatic cirrhosis Ascites presence: with ascites Qualified Code(s): K74.60 - Unspecified cirrhosis of liver; R18.8 - Other ascites (3) Diabetes mellitus Current Visit: Yes Status: Acute Assessment and plan: Acute on chronic DM2 with hyperglycemia Patient presents with poorly controlled glucose She does use insulin at home, family says control has been poor since she's been sick I will check A1C, place on low dose sliding scale insulin Accucheck ACHS 12/16 Better controlled, continue current regimen A1c 6.5 Qualifiers: Diabetes mellitus type: type 2 Diabetes mellitus [facility] use: with [facility] use Diabetes mellitus complication status: with hyperglycemia Qualified Code(s): E11.65 - Type 2 diabetes mellitus with hyperglycemia; Z79.4 - penitentiary (current) use of insulin (4) HTN (hypertension) Current Visit: No Status: Chronic Assessment and plan: Continue home meds Qualifiers: Hypertension type: essential hypertension Qualified Code(s): I10 - Essential (primary) hypertension (5) Anemia Current Visit: Yes Status: Chronic Assessment and plan: Chronic anemia, appears to be stable Appears macrocytic in nature with MCV 110 Iron studies were checked on last admission, however may be unreliable in setting of liver disease I will check MMA, B12, Folate for nutritional deficiencies Repeat CBC in am 12/16 Stable, continue to monitor daily H/h Qualifiers: Anemia type: other cause Other causes of anemia: chronic disease, other Qualified Code(s): D63.8 - Anemia in other chronic diseases classified elsewhere (6) Thrombocytopenia Current Visit: Yes Status: Chronic Assessment and plan: Stable (7) Chronic kidney disease (CKD) Current Visit: Yes Status: Acute Assessment and plan: CKD3, stable Serum Cr 1.19, BUN 29 Continue with gentle hydration, avoid nephrotoxic agents 12/16 Stable Qualifiers: Chronic kidney disease stage: stage 3 (moderate) Qualified Code(s): N18.3 - Chronic kidney disease, stage 3 (moderate) (8) Cellulitis Current Visit: Yes Status: Acute Assessment and plan: Right posteromedial cellulitis, new Severe erythema and hyperemia which is new from prior Patient is having pain associated with this Source: likely from previous bullae on posterior leg May influence mental status Start IV Vancomycin and Zosyn Qualifiers: Site of cellulitis: extremity Site of cellulitis of extremity: lower extremity Laterality: right Qualified Code(s): L03.115 - Cellulitis of right lower limb - Time Spent With Patient Total time spent is greater than 50% in coordination of care (as documented) at patient's floor/unit and/or counseling patient: - Subjective Interval history: The patient remains encephalopathic. She apparently had a rough night, with complaints of severe pain multiple times and worsened mental status. She did not sleep. - Constitutional Vitals: Temp Pulse Resp BP Pulse Ox 98.5 F 119 17 119/73 97 12/16/17 06:59 12/16/17 06:59 12/16/17 06:59 12/16/17 06:59 12/16/17 06:59 Exam: general: alert and oriented only to person and place but not time. Very somnolent HEENT: head atraumatic, normocephalic heart: RRR no murmur gallop or rub lungs: CTA throughout abd: multiple contusions. mild bruising with distension and caput medusa. normoactive bowel sounds with no bruits. unable to assess hepatosplenomegaly due to fluid. nontender in all quadrants, epigastric, and suprapubic areas. no palpable masses. Neuro: Appears stable, disoriented. integumentary: many diffuse small abrasions in various stages of healing and small contusions. Severe cellulitis along posteromedial aspect of left leg with erythema and hyperemia. Internal Medicine: Result - Labs CBC & Chem 7: 12/16/17 03:27 12/16/17 03:27 Labs: Short CBC 12/16/17 Range/Units 03:27 WBC 5.6 (4.3-11.1) K/mcL Hgb 9.5 L (11.5-15.4) g/dL Hct 28.2 L (35.3-44.9) % Plt Count 79 L (140-400) K/mcL Neutrophils # 4.5 (1.6-8.9) K/mcL BMP 12/16/17 03:27 Sodium 141 Potassium 3.6 Chloride 106 Carbon Dioxide 29 BUN 27 H Creatinine 1.07 Glucose 115 H Calcium 9.5 Liver Function 12/16/17 Range/Units 03:27 Total Bilirubin 1.2 H (0.3-1.0) mg/dL AST 22 (13-39) Units/L ALT 24 (7-52) Units/L Alkaline Phosphatase 99 (34-104) Units/L Albumin 2.8 L (3.5-5.7) g/dL - ABG Interpretation ABG results: PT/INR, D-dimer PT 12.8 Seconds (9.4-12.1) H 12/16/17 03:27 - VTE Documentation of Mechanical Device: Intermittent pneumatic compression device Consult Discharge Plan - Plan Referrals: Carlos Harley Jr, MD [Primary Care Provider] - <Maynor Valderrama - Last Filed: 12/16/17 15:44> Date of Encounter: 12/16/17 - Assessment and plan (1) Cellulitis Current Visit: Yes Status: Acute Qualifiers: Site of cellulitis: extremity Site of cellulitis of extremity: lower extremity Laterality: right Qualified Code(s): L03.115 - Cellulitis of right lower limb (2) Acute hepatic encephalopathy Current Visit: Yes Status: Acute (3) HTN (hypertension) Current Visit: No Status: Chronic Qualifiers: Hypertension type: essential hypertension Qualified Code(s): I10 - Essential (primary) hypertension (4) Thrombocytopenia Current Visit: Yes Status: Chronic (5) Diabetes mellitus Current Visit: Yes Status: Acute Qualifiers: Diabetes mellitus type: type 2 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: with [facility] use Diabetes mellitus complication status: with hyperglycemia Qualified Code(s): E11.65 - Type 2 diabetes mellitus with hyperglycemia; Z79.4 - penitentiary (current) use of insulin (6) Liver cirrhosis Current Visit: Yes Status: Chronic Qualifiers: Hepatic cirrhosis type: unspecified hepatic cirrhosis Ascites presence: with ascites Qualified Code(s): K74.60 - Unspecified cirrhosis of liver; R18.8 - Other ascites (7) Anemia Current Visit: Yes Status: Chronic Qualifiers: Anemia type: other cause Other causes of anemia: chronic disease, other Qualified Code(s): D63.8 - Anemia in other chronic diseases classified elsewhere (8) Chronic kidney disease (CKD) Current Visit: Yes Status: Acute Qualifiers: Chronic kidney disease stage: stage 3 (moderate) Qualified Code(s): N18.3 - Chronic kidney disease, stage 3 (moderate) - Time Spent With Patient Total time spent is greater than 50% in coordination of care (as documented) at patient's floor/unit and/or counseling patient: - Constitutional Vitals: Temp Pulse Resp BP Pulse Ox 98.8 F 106 18 96/64 96 12/16/17 11:59 12/16/17 11:59 12/16/17 11:59 12/16/17 11:59 12/16/17 11:59 Internal Medicine: Result - Labs CBC & Chem 7: 12/16/17 03:27 12/16/17 03:27 Labs: Short CBC 12/16/17 Range/Units 03:27 WBC 5.6 (4.3-11.1) K/mcL Hgb 9.5 L (11.5-15.4) g/dL Hct 28.2 L (35.3-44.9) % Plt Count 79 L (140-400) K/mcL Neutrophils # 4.5 (1.6-8.9) K/mcL BMP 12/16/17 03:27 Sodium 141 Potassium 3.6 Chloride 106 Carbon Dioxide 29 BUN 27 H Creatinine 1.07 Glucose 115 H Calcium 9.5 Liver Function 12/16/17 Range/Units 03:27 Total Bilirubin 1.2 H (0.3-1.0) mg/dL AST 22 (13-39) Units/L ALT 24 (7-52) Units/L Alkaline Phosphatase 99 (34-104) Units/L Albumin 2.8 L (3.5-5.7) g/dL - ABG Interpretation ABG results: PT/INR, D-dimer PT 12.8 Seconds (9.4-12.1) H 12/16/17 03:27 - Attending Attestation I examined this patient and my medical decision-making was reviewed with the Resident Physician on 12/16/17. I agree with the documented findings, disposition and treatment plan as described except to the extent set forth below. Ms Johnston did not sleep last night. She has had a lot of pain in her legs. She has a lot of posterior blisters. Now she has erythema on her posterior R leg. No abd pain. No fever. Denies dyspnea or CP. Family at bedside. Exam Arousable. mucus membranes dry Heart reg No wheeze at this time. Abd distended. Soft Bilateral lower extremities with edema and blisters. Erythema on RLE. I/P 1. Cellulitis RLE - start abx. Repeat blood cultures 2. Hepatic encephalopathy - change to Rifaxamin Further diagnoses and plan as above. Family not ready to discuss with palliative at this time. They also do not feel need to transfer to her environmental intern.
[2017-12-16] MEDS ORDERED: *HR* OxyCODONE Oral Soln 5 MG/5 ML UD.LIQ PO PRN (09:57)
[2017-12-16] MEDS ORDERED: OXYCODONE Oral CONC 10 MG/0.5 ML ORAL.SYG SL SCH (12:00)
[2017-12-16] MEDS ORDERED: OXYCODONE Oral CONC 10 MG/0.5 ML ORAL.SYG SL PRN (12:03)
[2017-12-16] MEDS: Albumin 25% 25gram/100mL 25 GM/100 ML IV.SOLN IVC SCH ×2 (13:53→16:30)
[2017-12-16] MEDS: Piperacillin/Tazobactam 3.375 GM in 0.9 % Sodium Chloride Mini Bag 100 ML IVPB SCH ×2 (18:27→23:52)
[2017-12-16] MEDS: Insulin DETEMIR 100 UNIT/ML X5UNITS SQ SCH (21:41)
[2017-12-17 04:45] LABS: Hematocrit 22.8 % (35.3-44.9); Mean Corpuscular Volume 110.1 fL (83.0-100.0); Red Blood Count 2.07 M/mcL (3.82-4.97)
[2017-12-17 04:47] LABS: Mean Corpuscular HGB Conc 35.1 g/dL (31.6-35.5); Mean Corpuscular Hemoglobin 38.6 pg (28.0-33.3); Mean Platelet Volume 11.7 fL (9.4-12.4); Red Cell Distribution Width 15.3 % (11.5-14.5)
[2017-12-17 05:05] LABS: BUN/Creatinine Ratio 27 (6-26); Blood Urea Nitrogen 29 mg/dL (8-23); Carbon Dioxide 24 mEq/L (23-29); Chloride 105 mEq/L (98-107); Glucose 218 mg/dL (70-105); Osmolality,Calculated 294 (280-300); Potassium 3.7 mEq/L (3.5-5.1); Sodium 136 mEq/L (136-145); eGFR For African Americans > 60 (> 60); eGFR For Non-African Americans 51 (> 60)
[2017-12-17 05:07] LABS: Platelet Count 43 K/mcL (140-400)
[2017-12-17 05:43] LABS: Lymphocytes # 0.1 K/mcL (0.6-4.6); Monocytes # 0.1 K/mcL (0.0-1.3); Neutrophils # 6.1 K/mcL (1.6-8.9); Platelet Estimate Decreased (Normal)
[2017-12-17 05:44] LABS: Macrocytosis Present (Not Present)
[2017-12-17] MEDS: Lactulose Oral Soln 20 GM/30 ML UDC PO SCH ×3 (09:23→22:26)
[2017-12-17] MEDS: Cholecalciferol (D-3) 1,000 UNIT TABLET PO SCH (09:23)
[2017-12-17] MEDS: Piperacillin/Tazobactam 3.375 GM in 0.9 % Sodium Chloride Mini Bag 100 ML IVPB SCH ×2 (09:24→16:47)
[2017-12-17] MEDS: Furosemide 40 MG/4 ML VIAL IVP SCH (09:25)
[2017-12-17] MEDS: Insulin LISPRO 300 UNITS/3 ML VIAL SQ SCH ×4 (09:32→22:24)
--- NOTE | 2017-12-17 09:32 | Internal Med Progress Note ---
<Amauri Woodard - Last Filed: 12/17/17 16:19> Date of Encounter: 12/17/17 Time of Encounter: 08:50 - Assessment and plan (1) Acute hepatic encephalopathy Current Visit: Yes Status: Acute (2) Cellulitis Current Visit: Yes Status: Acute Qualifiers: Site of cellulitis: extremity Site of cellulitis of extremity: lower extremity Laterality: right Qualified Code(s): L03.115 - Cellulitis of right lower limb (3) Liver cirrhosis Current Visit: Yes Status: Chronic Qualifiers: Hepatic cirrhosis type: unspecified hepatic cirrhosis Ascites presence: with ascites Qualified Code(s): K74.60 - Unspecified cirrhosis of liver; R18.8 - Other ascites (4) Diabetes mellitus Current Visit: Yes Status: Acute Qualifiers: Diabetes mellitus type: type 2 Diabetes mellitus skilled nursing insulin use: with intermediate card tender use Diabetes mellitus complication status: with hyperglycemia Qualified Code(s): E11.65 - Type 2 diabetes mellitus with hyperglycemia; Z79.4 - intermediate card tender (current) use of insulin (5) HTN (hypertension) Current Visit: No Status: Chronic Qualifiers: Hypertension type: essential hypertension Qualified Code(s): I10 - Essential (primary) hypertension (6) Anemia Current Visit: Yes Status: Chronic Qualifiers: Anemia type: other cause Other causes of anemia: chronic disease, other Qualified Code(s): D63.8 - Anemia in other chronic diseases classified elsewhere (7) Thrombocytopenia Current Visit: Yes Status: Chronic (8) Chronic kidney disease (CKD) Current Visit: Yes Status: Acute Qualifiers: Chronic kidney disease stage: stage 3 (moderate) Qualified Code(s): N18.3 - Chronic kidney disease, stage 3 (moderate) - Constitutional Vitals: Temp Pulse Resp BP Pulse Ox 98.2 F 91 14 99/64 98 12/17/17 15:45 12/17/17 15:45 12/17/17 15:45 12/17/17 15:45 12/17/17 15:45 Internal Medicine: Result - Labs CBC & Chem 7: 12/17/17 04:14 12/17/17 04:14 Labs: Short CBC 12/17/17 Range/Units 04:14 WBC 6.3 (4.3-11.1) K/mcL Hgb 8.0 L D (11.5-15.4) g/dL Hct 22.8 L (35.3-44.9) % Plt Count 43 L (140-400) K/mcL Neutrophils # 6.1 (1.6-8.9) K/mcL BMP 12/17/17 04:14 Sodium 136 Potassium 3.7 Chloride 105 Carbon Dioxide 24 BUN 29 H Creatinine 1.07 Glucose 218 H Calcium 9.0 - ABG Interpretation ABG results: PT/INR, D-dimer PT 12.8 Seconds (9.4-12.1) H 12/16/17 03:27 - Impressions Impressions Lower Extremity CT 12/17/17 10:04 IMPRESSION: 1. Nonspecific subcutaneous edema throughout the right lower extremity most pronounced at the leg, ankle and foot. Considerations include cellulitis, venous insufficiency and lymphedema. 2. Focal superficial fluid density lesion on the dorsum of the the midfoot may reflect a large blister. Direct visualization is suggested. 3. Small to moderate amount of pelvic free fluid. D/ / 12/17/2017 12:47:59 Huy Huffman MD / chris Interpreting Provider: Huy Huffman MD Consult Discharge Plan - Plan Referrals: Carlos Harley Jr, MD [Primary Care Provider] - <Jaswant Alatorre - Last Filed: 12/17/17 17:13> Date of Encounter: 12/17/17 - Assessment and plan (1) Hepatic encephalopathy Current Visit: Yes Status: Acute Assessment and plan: continue lactulose. Rifaximin discontinued. SBP doubtful due to lack of peritoneal signs. Will continue to monitor. No paracentesis. on initial exam the patient was alert and oriented only to person, not place or time. return exam showed patient was alert and oriented X3. (2) Cellulitis Current Visit: Yes Status: Acute Assessment and plan: R distal and proximal lower Ext. erythema and hyperemia. patient states that pain is no better than on 12/16 continue Vancomycin and Zosyn day [address] 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 switched lasix to 40 mg IVP to combat edema. LFT's normal as of yesterday Qualifiers: Hepatic cirrhosis type: unspecified hepatic cirrhosis Ascites presence: with ascites Qualified Code(s): K74.60 - Unspecified cirrhosis of liver; R18.8 - Other ascites (4) Diabetes mellitus Current Visit: Yes Status: Acute Assessment and plan: acute on chronic DM2 with hyperglycemia. HbA1c 6.5 on 12/16. continue SSI and ACHS Qualifiers: Diabetes mellitus type: type 2 Diabetes mellitus intermediate card tender insulin use: with skilled nursing use Diabetes mellitus complication status: with hyperglycemia Qualified Code(s): E11.65 - Type 2 diabetes mellitus with hyperglycemia; Z79.4 - longterm (current) use of insulin (5) Anemia Current Visit: Yes Status: Chronic Assessment and plan: B12 and folate WNL as of 12/16. awaiting MMA. Hb of 8 from 9.5 on 12/16. We will continue to monitor Hb/Hct and will transfuse if patient shows significant clinical symptoms Qualifiers: Anemia type: other cause Other causes of anemia: chronic disease, other Qualified Code(s): D63.8 - Anemia in other chronic diseases classified elsewhere (6) Chronic kidney disease (CKD) Current Visit: Yes Status: Acute Assessment and plan: CKD3, stable BUN 29, Cr. 1.07 Qualifiers: Chronic kidney disease stage: stage 3 (moderate) Qualified Code(s): N18.3 - Chronic kidney disease, stage 3 (moderate) (7) History of DVT (deep vein thrombosis) Current Visit: Yes Status: Acute Assessment and plan: continue SCD's as tolerated. anticoagulation contraindicated secondary to bleeding complications (8) Thrombocytopenia Current Visit: Yes Status: Chronic Assessment and plan: chronic stable (9) HTN (hypertension) Current Visit: No Status: Chronic Assessment and plan: continue home meds Qualifiers: Hypertension type: essential hypertension Qualified Code(s): I10 - Essential (primary) hypertension (10) Hyperammonemia Current Visit: Yes Status: Acute Assessment and plan: patient shows some slight clinical improvement of mentation. ammonia level decreasing (11) DVT prophylaxis Current Visit: Yes Status: Acute Assessment and plan: continue SCD's - Subjective Interval history: Mrs. Johnston is a 72 Yo f with history of liver cirrhosis and DVT who presented 2 days ago to the ED with altered mental status and has been treated for hepatic encephalopathy and cellulitis of the R lower Ext. Today she complains only of soreness of her R foot. pain is no better than yesterday. described as dull and "tight". pain current and intermittent. 12/22, though this seems disproportionate to other description of the pain being fairly mild. Denies any other issues today. Feels her mentation is better than it has been. Denies recent bowel movement or urination. not accompanied by any family at time of the interview. - Constitutional Vitals: Temp Pulse Resp BP Pulse Ox 100.0 F H 97 16 104/65 97 12/17/17 07:36 12/17/17 07:36 12/17/17 07:36 12/17/17 07:36 12/17/17 07:36 Exam: general: alert and oriented only to person but not time and place. Somnolent. HEENT: head normocephalic heart: RRR systolic 1/6 murmur heard best over aortic post with foote. lungs: CTA throughout abd: multiple contusions. mild bruising with distension and caput medusa. hyperactive bowel sounds. unable to assess bruits due to bowel sounds. unable to assess hepatosplenomegaly due to fluid. However, scratching of abd with stethoscope on liver revealed possible hepatomegaly. nontender in all quadrants , epigastric, and suprapubic areas. no palpable masses. Neuro: CN 2-12 intact. Appears stable, alert and oriented only to person but not to place or time. no agitation. integumentary: many diffuse small abrasions in various stages of healing and small contusions. Severe cellulitis of lateral proximal and distal lower Ext. erythema and hyperemia. MSK: pitting edema of lower Ext. Internal Medicine: Result - Labs CBC & Chem 7: 12/17/17 04:14 12/17/17 04:14 Labs: Short CBC 12/17/17 Range/Units 04:14 WBC 6.3 (4.3-11.1) K/mcL Hgb 8.0 L D (11.5-15.4) g/dL Hct 22.8 L (35.3-44.9) % Plt Count 43 L (140-400) K/mcL Neutrophils # 6.1 (1.6-8.9) K/mcL BMP 12/17/17 04:14 Sodium 136 Potassium 3.7 Chloride 105 Carbon Dioxide 24 BUN 29 H Creatinine 1.07 Glucose 218 H Calcium 9.0 - ABG Interpretation ABG results: PT/INR, D-dimer PT 12.8 Seconds (9.4-12.1) H 12/16/17 03:27 - VTE Documentation of Mechanical Device: Graduated compression elastic hosiery <Maynor Valderrama - Last Filed: 12/17/17 19:23> Date of Encounter: 12/17/17 Time of Encounter: 13:30 - Assessment and plan (1) Cellulitis Current Visit: Yes Status: Acute Qualifiers: Site of cellulitis: extremity Site of cellulitis of extremity: lower extremity Laterality: right Qualified Code(s): L03.115 - Cellulitis of right lower limb (2) Acute hepatic encephalopathy Current Visit: Yes Status: Acute (3) HTN (hypertension) Current Visit: No Status: Chronic Qualifiers: Hypertension type: essential hypertension Qualified Code(s): I10 - Essential (primary) hypertension (4) Thrombocytopenia Current Visit: Yes Status: Chronic (5) Diabetes mellitus Current Visit: Yes Status: Acute Qualifiers: Diabetes mellitus type: type 2 Diabetes mellitus intermediate card tender insulin use: with skilled nursing use Diabetes mellitus complication status: with hyperglycemia Qualified Code(s): E11.65 - Type 2 diabetes mellitus with hyperglycemia; Z79.4 - longterm (current) use of insulin (6) Liver cirrhosis Current Visit: Yes Status: Chronic Qualifiers: Hepatic cirrhosis type: unspecified hepatic cirrhosis Ascites presence: with ascites Qualified Code(s): K74.60 - Unspecified cirrhosis of liver; R18.8 - Other ascites (7) Anemia Current Visit: Yes Status: Chronic Qualifiers: Anemia type: other cause Other causes of anemia: chronic disease, other Qualified Code(s): D63.8 - Anemia in other chronic diseases classified elsewhere (8) Chronic kidney disease (CKD) Current Visit: Yes Status: Acute Qualifiers: Chronic kidney disease stage: stage 3 (moderate) Qualified Code(s): N18.3 - Chronic kidney disease, stage 3 (moderate) - Constitutional Vitals: Temp Pulse Resp BP Pulse Ox 98.2 F 91 14 99/64 98 12/17/17 15:45 12/17/17 15:45 12/17/17 15:45 12/17/17 15:45 12/17/17 15:45 - Head Head exam: Present: normocephalic - Eye Eye exam: Present: conjuntiva pink - ENT ENT exam: Present: mucous membranes moist - Respiratory Respiratory exam: Absent: rhonchi, wheezes - Cardiovascular Cardiovascular exam: Present: RRR. Absent: tachycardia - GI/Abdominal GI/Abdominal exam: Present: distended, soft. Absent: tenderness - Extremities Exam Extremities exam: Present: warm Additional comments: Erythema worse on R leg. - Neurological Exam Neurological exam: Present: alert, oriented X3 - Skin Skin exam: Present: erythema, warm Internal Medicine: Result - Labs CBC & Chem 7: 12/17/17 17:19 12/17/17 04:14 Labs: Short CBC 12/17/17 12/17/17 Range/Units 04:14 17:19 WBC 6.3 (4.3-11.1) K/mcL Hgb 8.0 L D 7.9 L (11.5-15.4) g/dL Hct 22.8 L 23.4 L (35.3-44.9) % Plt Count 43 L (140-400) K/mcL Neutrophils # 6.1 (1.6-8.9) K/mcL BMP 12/17/17 04:14 Sodium 136 Potassium 3.7 Chloride 105 Carbon Dioxide 24 BUN 29 H Creatinine 1.07 Glucose 218 H Calcium 9.0 - ABG Interpretation ABG results: PT/INR, D-dimer PT 12.8 Seconds (9.4-12.1) H 12/16/17 03:27 - Impressions Impressions Lower Extremity CT 12/17/17 10:04 IMPRESSION: 1. Nonspecific subcutaneous edema throughout the right lower extremity most pronounced at the leg, ankle and foot. Considerations include cellulitis, venous insufficiency and lymphedema. 2. Focal superficial fluid density lesion on the dorsum of the the midfoot may reflect a large blister. Direct visualization is suggested. 3. Small to moderate amount of pelvic free fluid. D/ / 12/17/2017 12:47:59 Huy Huffman MD / chris Interpreting Provider: Huy Huffman MD - Attending Attestation I examined this patient and my medical decision-making was reviewed with the Resident Physician on 12/17/17. I agree with the documented findings, disposition and treatment plan as described except to the extent set forth below. Ms Johnston is currently admitted for acute encephalopathy. She has developed a cellulitis of her leg and anemia. She remains moderate to high risk due to potential for worsening clinical status. Ms Johnston is more alert today. She is having more erythema to leg. No fever or chills. Abd nontender. Some loose stools Exam alert Comfortable at this time Mucus membranes dry Heart reg No wheeze abd soft RLE erythema is worse. some tenderness. I/P 1. Cellulitis - check CT to r/o hematoma. Continue abx 2. Encephalopathy Further diagnoses and plan as above.
[2017-12-17] MEDS ORDERED: traMADol 50 MG TABLET PO PRN (10:03)
--- NOTE | 2017-12-17 10:17 | Physician Discharge Referral ---
Home Health/Hosp Referral Info Transfer to: Home Health Provider in Charge Post Discharge: PCP - Diagnosis (1) Acute hepatic encephalopathy Status: Acute (2) Cellulitis Status: Acute (3) Liver cirrhosis Status: Chronic (4) Diabetes mellitus Status: Acute (5) HTN (hypertension) Status: Chronic (6) Anemia Status: Chronic (7) Thrombocytopenia Status: Chronic (8) Chronic kidney disease (CKD) Status: Acute - Respiratory Orders Smoking Cessation: Smoking cessation has been advised. For more information, call the [place] Tobacco Quit Line at 3-917-VRCF-NOW. - Transfer Medications Home Medications: Budesonide [Entocort EC] 3 mg PO QAM 11/21/16 [History] Carvedilol 12.5 mg PO DAILY 11/21/16 [History] Cholecalciferol (D-3) [Vitamin D] 2,000 unit PO DAILY 11/21/16 [History] Furosemide [Lasix] 40 mg PO DAILY PRN 11/21/16 [History] Spironolactone [Aldactone] 100 mg PO BID PRN 11/21/16 [History] Insulin Glargine,Hum.rec.anlog [Basaglar Kwikpen U-100] 10 unit SQ HS 07/10/17 [ History] Allergies/Adverse Reactions: 3 Allergy/AdvReac Type Severity Reaction Status Date / Time No Known Allergies Allergy Verified 11/16/17 13:24 Certification: Further, I certify that my clinical findings support that this patient is homebound (i.e. absences from home require considerable and taxing effort and are for medical reasons or catholic services or infrequently or short duration when for other reasons) because: Attestation: My signature below is to certify that this patient is under my care and that I, or nurse practitioner, or a physician's fish hatchery assistant working with me, has a face-to -face encounter with this patient.
[2017-12-17] MEDS ORDERED: Furosemide 40 MG/4 ML VIAL IVP ONE (14:00)
[2017-12-17 17:37] LABS: Hematocrit 23.4 % (35.3-44.9); Hemoglobin 7.9 g/dL (11.5-15.4)
[2017-12-17] MEDS: Insulin DETEMIR 100 UNIT/ML X5UNITS SQ SCH (22:26)
[2017-12-18] MEDS: Piperacillin/Tazobactam 3.375 GM in 0.9 % Sodium Chloride Mini Bag 100 ML IVPB SCH ×4 (00:23→23:35)
[2017-12-18 07:20] LABS: Eosinophils % 0.2 %; Immature Granulocytes % 2.9 % (0-4)
[2017-12-18 07:22] LABS: Hematocrit 21.9 % (35.3-44.9); Hemoglobin 7.7 g/dL (11.5-15.4); Immature Platelets 6.6 % (1.1-6.1); Lymphocytes # 0.2 K/mcL (0.6-4.6); Lymphocytes % 2.9 %; Mean Corpuscular HGB Conc 35.2 g/dL (31.6-35.5); Mean Corpuscular Hemoglobin 38.3 pg (28.0-33.3); Mean Platelet Volume 11.7 fL (9.4-12.4); Monocytes # 0.3 K/mcL (0.0-1.3); Monocytes % 3.8 %; Neutrophils # 5.9 K/mcL (1.6-8.9); Red Blood Count 2.01 M/mcL (3.82-4.97); Red Cell Distribution Width 14.4 % (11.5-14.5); Segmented Neutrophils % 90.2 %
[2017-12-18 07:29] LABS: Platelet Count 41 K/mcL (140-400)
[2017-12-18 08:16] LABS: Platelet Estimate Decreased (Normal)
[2017-12-18] MEDS: Furosemide 40 MG/4 ML VIAL IVP SCH (08:22)
[2017-12-18] MEDS: Insulin LISPRO 300 UNITS/3 ML VIAL SQ SCH ×4 (08:22→21:48)
[2017-12-18] MEDS: Lactulose Oral Soln 20 GM/30 ML UDC PO SCH ×3 (08:23→20:43)
[2017-12-18] MEDS: Cholecalciferol (D-3) 1,000 UNIT TABLET PO SCH (08:23)
--- NOTE | 2017-12-18 09:29 | Internal Med Progress Note ---
<Jaswant Alatorre - Last Filed: 12/18/17 16:53> Date of Encounter: 12/18/17 Time of Encounter: 09:00 - Assessment and plan (1) Hepatic encephalopathy Current Visit: Yes Status: Acute Assessment and plan: continue lactulose. alert and oriented X3 (2) Cellulitis Current Visit: Yes Status: Acute Assessment and plan: R distal and proximal lower Ext. erythema seems to be improving on visual inspection. patient states pain has improved continue Vancomycin and Pip/Tazo day 08/22 cultures still pending Qualifiers: Site of cellulitis: extremity Site of cellulitis of extremity: lower extremity Laterality: right Qualified Code(s): L03.115 - Cellulitis of right lower limb (3) Liver cirrhosis Current Visit: Yes Status: Chronic Assessment and plan: chronic due to autoimmune hepatitis continue furosemide 40 mg IVP to combat edema Qualifiers: Hepatic cirrhosis type: unspecified hepatic cirrhosis Ascites presence: with ascites Qualified Code(s): K74.60 - Unspecified cirrhosis of liver; R18.8 - Other ascites (4) Diabetes mellitus Current Visit: Yes Status: Acute Assessment and plan: acute on chronic DM2 with hyperglycemia HBA1c 6.5 on 12/16 continue SSI and ACHS Qualifiers: Diabetes mellitus type: type 2 Diabetes mellitus terminal manager insulin use: with retirement use Diabetes mellitus complication status: with hyperglycemia Qualified Code(s): E11.65 - Type 2 diabetes mellitus with hyperglycemia; Z79.4 - rat exterminator (current) use of insulin (5) Anemia Current Visit: Yes Status: Chronic Assessment and plan: B12 and folate WNL as of 12/16. awaiting MMA. Gastro consult ordered for possible GI bleed etiology as patient has a history of recent pancreatitis complicated by GI bleeding per Dr. Woodard. EGD to be performed. will continue to monitor H/H and transfuse if needed. started PPI bid. Hgb 7.7 from 7.9 on 12/17 Qualifiers: Anemia type: other cause Other causes of anemia: chronic disease, other Qualified Code(s): D63.8 - Anemia in other chronic diseases classified elsewhere (6) Chronic kidney disease (CKD) Current Visit: Yes Status: Acute Assessment and plan: CKD3, stable Qualifiers: Chronic kidney disease stage: stage 3 (moderate) Qualified Code(s): N18.3 - Chronic kidney disease, stage 3 (moderate) (7) History of DVT (deep vein thrombosis) Current Visit: Yes Status: Acute Assessment and plan: continue SCD's as tolerated. anticoagulation contraindicated secondary to bleeding complications (8) Thrombocytopenia Current Visit: Yes Status: Chronic Assessment and plan: chronic stable (9) HTN (hypertension) Current Visit: No Status: Chronic Assessment and plan: continue home meds Qualifiers: Hypertension type: essential hypertension Qualified Code(s): I10 - Essential (primary) hypertension (10) Hyperammonemia Current Visit: Yes Status: Acute Assessment and plan: patient shows clinical improvement of mentation. (11) DVT prophylaxis Current Visit: Yes Status: Acute Assessment and plan: continue SCD's as tolerated - Subjective Interval history: Mrs. Johnston is a 72 Yo f with history of DVT who is suffering from hepatic encephalopathy secondary to autoimmune chronic liver cirrhosis, worsening macrocytic anemia, and cellulitis. She presented to our ED 3 days ago. She feels less fatigued and stronger today. Denies shortness of breath, dizziness, changes in sensation or motility of extremities. Daughter who accompanies patient reports around 3 patient bowel movements yesterday and a good appetite. patient states her leg pain is better, but still slightly noticeable at rest. - Constitutional Vitals: Temp Pulse Resp BP Pulse Ox 97.7 F 75 16 117/76 99 12/18/17 07:38 12/18/17 07:38 12/18/17 07:38 12/18/17 07:38 12/18/17 07:38 Exam: PE general: elderly female in good spirits and slightly somnolescent HEENT: head symmetric and atraumatic. nontender. heart: RRR systolic 1/6 murmur heard best over aortic post lungs: CTA throughout abd: distended with contusions and petichiae as well as caput medusae. no bruits and normoactive bowel sounds. possible tenderness over epigastric region but when asked patient states "not pain, just pressure". non tender elsewhere with no palpable masses. hepatosplenomegaly not assessed due to distension. integumentary: many iffuse small abrasions in various stages of healing and small contusions. Cellulitis of lateral and medial proximal and distal lower Ext. with erythema and hyperemia. seems to be improved on visual inspection compared to yesterday. pitting edema b/l lower Ext. MSK: pitting edema b/l lower EXt. mildly tender R lower Ext. neuro: CN 2-12 intact. alert and oriented to person place and time. Internal Medicine: Result - Labs CBC & Chem 7: 12/18/17 06:53 12/17/17 04:14 Labs: Short CBC 12/17/17 12/18/17 Range/Units 17:19 06:53 WBC 6.5 (4.3-11.1) K/mcL Hgb 7.9 L 7.7 L (11.5-15.4) g/dL Hct 23.4 L 21.9 L (35.3-44.9) % Plt Count 41 L (140-400) K/mcL Neutrophils # 5.9 (1.6-8.9) K/mcL - ABG Interpretation ABG results: PT/INR, D-dimer PT 12.8 Seconds (9.4-12.1) H 12/16/17 03:27 - Impressions Impressions Lower Extremity CT 12/17/17 10:04 IMPRESSION: 1. Nonspecific subcutaneous edema throughout the right lower extremity most pronounced at the leg, ankle and foot. Considerations include cellulitis, venous insufficiency and lymphedema. 2. Focal superficial fluid density lesion on the dorsum of the the midfoot may reflect a large blister. Direct visualization is suggested. 3. Small to moderate amount of pelvic free fluid. D/ / 12/17/2017 12:47:59 Huy Huffman MD / анна Interpreting Provider: Huy Huffman MD - VTE Documentation of Mechanical Device: Graduated compression elastic hosiery Consult Discharge Plan - Plan Referrals: Carlos Harley Jr, MD [Primary Care Provider] - <Maynor Valderrama - Last Filed: 12/18/17 18:27> Date of Encounter: 12/18/17 - Assessment and plan (1) Cellulitis Current Visit: Yes Status: Acute Qualifiers: Site of cellulitis: extremity Site of cellulitis of extremity: lower extremity Laterality: right Qualified Code(s): L03.115 - Cellulitis of right lower limb (2) Acute hepatic encephalopathy Current Visit: Yes Status: Acute (3) HTN (hypertension) Current Visit: No Status: Chronic Qualifiers: Hypertension type: essential hypertension Qualified Code(s): I10 - Essential (primary) hypertension (4) Thrombocytopenia Current Visit: Yes Status: Chronic (5) Diabetes mellitus Current Visit: Yes Status: Acute Qualifiers: Diabetes mellitus type: type 2 Diabetes mellitus retirement insulin use: with terminal manager use Diabetes mellitus complication status: with hyperglycemia Qualified Code(s): E11.65 - Type 2 diabetes mellitus with hyperglycemia; Z79.4 - senior living (current) use of insulin (6) Liver cirrhosis Current Visit: Yes Status: Chronic Qualifiers: Hepatic cirrhosis type: unspecified hepatic cirrhosis Ascites presence: with ascites Qualified Code(s): K74.60 - Unspecified cirrhosis of liver; R18.8 - Other ascites (7) Anemia Current Visit: Yes Status: Chronic Qualifiers: Anemia type: other cause Other causes of anemia: chronic disease, other Qualified Code(s): D63.8 - Anemia in other chronic diseases classified elsewhere (8) Chronic kidney disease (CKD) Current Visit: Yes Status: Acute Qualifiers: Chronic kidney disease stage: stage 3 (moderate) Qualified Code(s): N18.3 - Chronic kidney disease, stage 3 (moderate) - Constitutional Vitals: Temp Pulse Resp BP Pulse Ox 98.1 F 84 18 110/71 98 12/18/17 15:58 12/18/17 15:58 12/18/17 15:58 12/18/17 15:58 12/18/17 15:58 Internal Medicine: Result - Labs CBC & Chem 7: 12/18/17 06:53 12/17/17 04:14 Labs: Short CBC 12/18/17 Range/Units 06:53 WBC 6.5 (4.3-11.1) K/mcL Hgb 7.7 L (11.5-15.4) g/dL Hct 21.9 L (35.3-44.9) % Plt Count 41 L (140-400) K/mcL Neutrophils # 5.9 (1.6-8.9) K/mcL - ABG Interpretation ABG results: PT/INR, D-dimer PT 12.8 Seconds (9.4-12.1) H 12/16/17 03:27 - Attending Attestation I examined this patient and my medical decision-making was reviewed with the Resident Physician on 12/18/17. I agree with the documented findings, disposition and treatment plan as described except to the extent set forth below. Ms Johnston is currently admitted for acute encephalopathy. She is anemic and has cellulitis as well. She remains moderate to high risk due to potential for worsening clinical status. Ms Johnston is alert and oriented. Pain in her leg is improving and she thinks redness is improving. No fever or chills. Family wants to talk with palliative today. Exam alert Comfortable Mucus membranes dry Heart reg no wheeze Erythema is improving on R leg I/P 1. Anemia - stool guiac. GI eval 2. Cellulitis on IV abx with monitoring Further diagnoses and plan as above.
--- NOTE | 2017-12-18 10:26 | Gastroenterology Consult Note ---
Date of Encounter: 12/18/17 Time of Encounter: 10:26 - Assessment and plan (1) GI bleed Current Visit: Yes Status: Suspected Assessment and plan: - Possible Gi bleed given decreasing H/H and history of cirrhosis with possible varices - Follows with Hepatology at [facility] - H/H stable at 7.7/21.9 however steadily declining from admission of 9.9 hgb - No EGD/Colonoscopy on record at [place], patient reports remote hx of colonoscopy which was normal as well as EGD at [facility] about a month ago - No documented melena or hematochezia per patient or nursing - High risk given history of cirrhosis. INR 1.1 - No evidence of varices on abdominal CT most recently. Plan - Add rifaximine 400 mg BID - Plan for possible EGD with Dr. Christina in future. No acute need as her H/H is fairly stable. - Would expect a more rapid decline if variceal bleed. - Transfuse as necessary, monitor hemodynamics Further plan and assessment will be discussed with Dr. Christina Qualifiers: Qualified Code(s): K92.2 - Gastrointestinal hemorrhage, unspecified (2) Autoimmune hepatitis Current Visit: Yes Status: Chronic Assessment and plan: - Stable and chronic. - Continue spironolactone, lactulose for hepatic encepholopathy. Appears to be resolving. AO today (3) Thrombocytopenia Current Visit: Yes Status: Chronic Assessment and plan: -Chronic likely secondary to cirrhosis. - monitor carefully in case of possible GI bleed. Monitor for now. - Platelets 41 (4) Hepatic encephalopathy Current Visit: Yes Status: Acute Assessment and plan: - Appears to be resolving per primary team documentation - Ammonia on admission of 112, trended to 86. - Continue lactulose. - Further management as outpatient at [facility]. (5) Liver cirrhosis Current Visit: Yes Status: Chronic Assessment and plan: - As above for hepatic encepholopathy Qualifiers: Qualified Code(s): K74.60 - Unspecified cirrhosis of liver; R18.8 - Other ascites - Time Spent With Patient Total time spent is greater than 50% in coordination of care (as documented) at patient's floor/unit and/or counseling patient: GI History of Present Illness - Data of Consult Consult date: 12/18/17 Requesting Physician: Maynor Valderrama DO - Consult Narrative Reason for consult: Possible GI bleed History of present illness: Ms. Johnston is a 72 year old female with past medical history of diabetes, autoimmune hepatitis resulting in cirrhosis, hypertension who presented to the emergency department with altered mental status. At time of admission, ammonia was noted to be 112 which has improved as well as mental status with treatment. She does follow with Dr. Bowen with [facility] hepatology. She does have reported history of esophageal varices however no EGD/colonoscopy records are available in this hospital system. Gastroenterology was consulted at this time due to concerns for possible GI bleed given a decreasing hemoglobin from 9.9 admission to most recently 7.7 in the setting of possible varices. Patient's most recent colonoscopy was reportedly greater than 5 years ago but she said it was normal at that time. She did have a recent ERCP at [facility] for a gallstone which is not removed. She does not remember the results of this. She states she has had cirrhosis for approximately 25 years secondary to her autoimmune hepatitis which has been relatively well controlled until this time. Her most recent visit with her GI specialist at [facility] was in October 2017 following a Whipple procedure. She states she did require 2 units of blood at that time. During time of interview today, patient states that overall she is feeling pretty well. She has no complaints of abdominal pain, nausea, vomiting. Last bowel movement was yesterday which she believes was normal for her however she did not expressively look at it. She denies any history of GI bleeds and has not noticed any melena or hematochezia. Denies any symptoms of weakness, fatigue, vertigo or lightheadedness. Past Med Surg Social Fam HX - Past Medical History Medical history: diabetes, hepatitis, hypertension, other Additional medical history: autoimmune hepatitis Psychiatric history: no psych history - Past Surgical History Surgical History: , cataract, hysterectomy Additional surgical history: common bile duct surgery to remove gall stone - Social History Smoking Status: Never smoker Smokeless Tobacco Status: No Alcohol use: none Drug use: none - Family History Mother Living Status: Hx Family Neurologic Disorders: Yes (ALZHEIMERS) - Gastrointestinal Gastrointestinal: Absent: abdominal pain, bloating, change in bowel habits, coffee ground emesis, constipation, diarrhea, hematemesis, hematochezia, melena , nausea, vomiting - Constitutional Constitutional: no anorexia, no fatigue, no weight gain, no weight loss - Cardiovascular Cardiovascular ROS: Absent: chest pain, irregular heart rhythm - Respiratory Respiratory IM: Absent: cough, dyspnea - Neurological ROS Neurological GI: Absent: dizziness - Hematologic/Lymphatic Hematologic/Lymphatic pediatric: Present: easy bleeding - Integumentary Integumentary GI: Absent: rash - Constitutional Vitals: Temp Pulse Resp BP Pulse Ox 97.7 F 75 16 117/76 99 12/18/17 07:38 12/18/17 07:38 12/18/17 07:38 12/18/17 07:38 12/18/17 07:38 Exam: Gen.: Vitals noted. No acute distress. AAOx3. Somnolent, resting comfortably in bed. HEENT: PERRL/EOMI, oropharynx clear, Normocephalic, atraumatic, MMM Cardiac: RRR, no murmur, +S1/S2 Pulmonary: CTA bilaterally, no wheezes, rales or rhonchi, equal chest expansion Abdomen: soft, moderately tender to palpation in left lower quadrant as well as right upper quadrant., BS noted, no guarding, no rebound, nondistended. Hepatomegaly appreciated Skin: Multiple areas of ecchymosis. Most prominent on chest, face, left upper extremity. Extremities: Bilateral lower extremity edema, worse on right.no cyanosis or clubbing. Neuro: A&Ox3, moves all extremities, no focal deficits Psych: Appropriate mood and behavior. Answers questions appropriately Results - Labs CBC & Chem 7: 12/18/17 06:53 12/17/17 04:14 Labs: Last Result Calcium 9.0 mg/dL (8.6-10.3) 12/17/17 04:14 Troponin I < 0.03 ng/mL (< 0.04) 12/15/17 13:21 Vitamin B12 415 pg/mL (250-1100) 12/16/17 03:27 Folate 15.6 ng/mL (3.0-16.0) 12/16/17 03:27 Entire Visit Hgb 7.7 g/dL (11.5-15.4) L 12/18/17 06:53 Hct 21.9 % (35.3-44.9) L 12/18/17 06:53 PT 12.8 Seconds (9.4-12.1) H 12/16/17 03:27 Total Bilirubin 1.2 mg/dL (0.3-1.0) H 12/16/17 03:27 AST 22 Units/L (13-39) 12/16/17 03:27 ALT 24 Units/L (7-52) 12/16/17 03:27 Ammonia 86 mcmol/L (16-53) H 12/16/17 03:27 Folate 15.6 ng/mL (3.0-16.0) 12/16/17 03:27 - ABG ABG results: PT/INR, D-dimer PT 12.8 Seconds (9.4-12.1) H 12/16/17 03:27 - Impressions Impressions Lower Extremity CT 12/17/17 10:04 IMPRESSION: 1. Nonspecific subcutaneous edema throughout the right lower extremity most pronounced at the leg, ankle and foot. Considerations include cellulitis, venous insufficiency and lymphedema. 2. Focal superficial fluid density lesion on the dorsum of the the midfoot may reflect a large blister. Direct visualization is suggested. 3. Small to moderate amount of pelvic free fluid. D/ / 12/17/2017 12:47:59 Huy Huffman MD / chris Interpreting Provider: Huy Huffman MD Consult Discharge Plan - Plan Referrals: Carlos Harley Jr, MD [Primary Care Provider] -
--- NOTE | 2017-12-18 14:18 | Palliative - Consult Note ---
Date of Encounter: 12/18/17 Time of Encounter: 14:15 - Assessment and Plan (1) Generalized pain Current Visit: Yes Status: Acute Assessment and plan: Continue Tramadol as ordered. REinforced to patient that this is available if she needs it. States she does not like to take pain meds unless she has to, and legs are only painful when they are moved. (2) Advance care planning Current Visit: Yes Status: Acute Assessment and plan: Jase Logan [employer] and I met with pt/son/daughter re: ongoing goals of care and advanced care planning. Discussed at length disease trajectory and options for her care. At this point, pt wants to continue aggressive management of her disease other than resuscitation - already DNR/DNI - we did complete state form and copies provided to family. She desires to return to [facility] as a skilled rehab pt. We did discuss hospice care at length - pt does not feel that she wants hospice care at this time, and states she is "not ready". They are familiar somewhat with hospice, as her enrolled in hospice with cancer diagnosis. Discussed that we want to ensure she has the information, so when treatment options are exhausted, she understands what hospice can provide. Pt and family verbalized understanding. Discussed advanced directives, and pt did complete power of deputy commonwealth's attorney forms. Copies placed in record and given to family. Will f/u clinical course on Thursday. (3) Autoimmune hepatitis Current Visit: Yes Status: Chronic Assessment and plan: Follows with [facility] at [facility]. Has follow up there 12/31 (4) Acute hepatic encephalopathy Current Visit: Yes Status: Acute Assessment and plan: Improved with treatment for high ammonia. (5) Cellulitis Current Visit: Yes Status: Acute Assessment and plan: Continues with IV atb therapy per primary team Qualifiers: Site of cellulitis: extremity Site of cellulitis of extremity: lower extremity Laterality: right Qualified Code(s): L03.115 - Cellulitis of right lower limb (6) GI bleed Current Visit: Yes Status: Suspected Assessment and plan: GI following - possible EGD Qualifiers: GI bleed type/associated pathology: unspecified gastrointestinal hemorrhage type Qualified Code(s): K92.2 - Gastrointestinal hemorrhage, unspecified Palliative-CN HPI - Data of Consult Consult date: 12/18/17 Requesting Physician: Maynor Valderrama DO Primary Care Provider: Carlos Harley Jr, MD - Consult Narrative History of present illness: Ms. Johnston is a 72 year old female with a history of autoimmune hepatitis who presented with mental status changes. Patient states her disease was diagnosed over 20 years ago, and did not start treatment until last year. States at that point, her [facility] physician told her disease was progressing, and she would not live long without beginning therapy. Prior to admission, She reportedly had 1- 2 weeks confusion at [facility]. She had recently been at [facility] and was transferred to [facility] for rehab. She follows with cooker soda there who manages her liver disease. She previously lived alone in her home, with daughter and son checking on her a couple times a day. Ammonia level was treated with Lactulose and her mentation is greatly improved. She is also being treated with IV antibiotics for cellulitis. Hemoccult was positive as well, and GI consult has been obtained. Other medical history includes diabetes and hypertension. CC: Maynor Valderrama, DO Past Med Surg Social Fam HX - Past Medical History Medical history: diabetes, hepatitis, hypertension, other Additional medical history: autoimmune hepatitis Psychiatric history: no psych history - Past Surgical History Surgical History: , cataract, hysterectomy Additional surgical history: common bile duct surgery to remove gall stone - Social History Smoking Status: Never smoker Smokeless Tobacco Status: No Alcohol use: none Drug use: none - Family History Mother Living Status: Hx Family Neurologic Disorders: Yes (ALZHEIMERS) Medications and Allergies Budesonide [Entocort EC] 3 mg PO QAM 11/21/16 [History] Carvedilol 12.5 mg PO DAILY 11/21/16 [History] Cholecalciferol (D-3) [Vitamin D] 2,000 unit PO DAILY 11/21/16 [History] Furosemide [Lasix] 40 mg PO DAILY PRN 11/21/16 [History] Spironolactone [Aldactone] 100 mg PO BID PRN 11/21/16 [History] Insulin Glargine,Hum.rec.anlog [Basaglar Kwikpen U-100] 10 unit SQ HS 07/10/17 [ History] 3 Allergy/AdvReac Type Severity Reaction Status Date / Time No Known Allergies Allergy Verified 11/16/17 13:24 All systems: reviewed and no additional remarkable complaints except as stated ( Blisters to legs, lower extremity edema, tenderness to lower legs, abd fullness , generalized weakness) Palliative Care-Exam - Constitutional Vitals: Temp Pulse Resp BP Pulse Ox 96.8 F L 86 16 116/73 98 12/18/17 11:17 12/18/17 11:17 12/18/17 11:17 12/18/17 11:17 12/18/17 11:17 General appearance: Present: no acute distress - Head Head Exam: Present: normal inspection, normocephalic - Eye Eye exam: Present: normal appearance, PERRL - Respiratory Respiratory exam: Present: CTAB - Cardiovascular Cardiovascular exam: Present: +S1, +S2 - GI/Abdominal Exam GI/Abdominal exam: Present: distended, soft - Extremities Exam Additional comments: Bilateral lower extremities with edema and weeping. Right leg with erythema up to inner thigh. - Neurological Exam Neurological exam: Present: alert, oriented X3 Additional comments: limited mobility to bilateral lower extremities r/t edema, weakness, and tenderness - Psychiatric Psychiatric exam: Present: normal mood - Skin Skin exam: Present: dry, pallor, warm Internal Medicine - CN: Reslt - Labs CBC & Chem 7: 12/18/17 06:53 12/17/17 04:14 Labs: Short CBC 12/17/17 12/18/17 Range/Units 17:19 06:53 WBC 6.5 (4.3-11.1) K/mcL Hgb 7.9 L 7.7 L (11.5-15.4) g/dL Hct 23.4 L 21.9 L (35.3-44.9) % Plt Count 41 L (140-400) K/mcL Neutrophils # 5.9 (1.6-8.9) K/mcL - ABG Interpretation ABG results: PT/INR, D-dimer PT 12.8 Seconds (9.4-12.1) H 12/16/17 03:27 Consult Discharge Plan - Plan Referrals: Carlos Harley Jr, MD [Primary Care Provider] - Palliative Quality Palliative Quality: Screen for Code Status: Yes, Screen for Goals of Care: Yes, Screen for Pain: Yes, If Pain Regimen Started, Initiate Bowel Regimen: NA, Screen for Nausea/Vomitting: Yes Code Status: 12/15/17 17:12 CODE [Resuscitation Status: Active] [RES] Routine Comment: Resuscitation Status: [id number]
[2017-12-18] MEDS: Insulin DETEMIR 100 UNIT/ML X5UNITS SQ SCH (20:43)
[2017-12-19] MEDS: Lactulose Oral Soln 20 GM/30 ML UDC PO SCH ×3 (08:14→20:37)
[2017-12-19] MEDS: Furosemide 40 MG/4 ML VIAL IVP SCH (08:15)
[2017-12-19] MEDS: Cholecalciferol (D-3) 1,000 UNIT TABLET PO SCH (08:15)
[2017-12-19] MEDS: Piperacillin/Tazobactam 3.375 GM in 0.9 % Sodium Chloride Mini Bag 100 ML IVPB SCH ×2 (08:15→15:52)
[2017-12-19] MEDS: Insulin LISPRO 300 UNITS/3 ML VIAL SQ SCH ×4 (08:16→20:38)
--- NOTE | 2017-12-19 10:21 | Internal Med Progress Note ---
<Amauri Woodard - Last Filed: 12/19/17 10:19> Date of Encounter: 12/19/17 Time of Encounter: 10:19 - Assessment and plan (1) Hepatic encephalopathy Current Visit: Yes Status: Acute Assessment and plan: Continue lactulose, add Rifaximin per GI Alert and oriented X3 (2) Cellulitis Current Visit: Yes Status: Acute Assessment and plan: Right posteromedial cellulitis, significantly better Severe erythema and hyperemia which has largely improved Patient is having pain associated with this Source: likely from previous bullae on posterior leg May influence mental status Start IV Vancomycin and Zosyn Qualifiers: Site of cellulitis: extremity Site of cellulitis of extremity: lower extremity Laterality: right Qualified Code(s): L03.115 - Cellulitis of right lower limb (3) Autoimmune hepatitis Current Visit: Yes Status: Chronic (4) Thrombocytopenia Current Visit: Yes Status: Resolved Assessment and plan: Stable (5) Liver cirrhosis Current Visit: Yes Status: Chronic Assessment and plan: 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 We will continue to monitor, treat encephalopathy with lactulose Consider hepatology consult as needed Qualifiers: Hepatic cirrhosis type: unspecified hepatic cirrhosis Ascites presence: with ascites Qualified Code(s): K74.60 - Unspecified cirrhosis of liver; R18.8 - Other ascites (6) GI bleed Current Visit: Yes Status: Suspected Assessment and plan: Concern for possible GI bleed History of GI bleed previously Monitor H/H, Consult to GI Qualifiers: GI bleed type/associated pathology: unspecified gastrointestinal hemorrhage type Qualified Code(s): K92.2 - Gastrointestinal hemorrhage, unspecified - Time Spent With Patient Total time spent is greater than 50% in coordination of care (as documented) at patient's floor/unit and/or counseling patient: - Subjective Interval history: The patient is resting comfortably in bed at time of examination. She has no acute complaints although she does say that she had trouble sleeping overnight. - Constitutional Vitals: Temp Pulse Resp BP Pulse Ox 97.8 F 74 17 135/75 99 12/19/17 06:58 12/19/17 06:58 12/19/17 06:58 12/19/17 06:58 12/19/17 06:58 Exam: general: elderly female in good spirits and slightly somnolescent HEENT: head symmetric and atraumatic. nontender. heart: RRR systolic 1/6 murmur heard best over aortic post lungs: CTA throughout abd: distended with contusions and petichiae as well as caput medusae. non tender elsewhere with no palpable masses. integumentary: many diffuse small abrasions in various stages of healing and small contusions. Cellulitis of lateral and medial proximal and distal lower Ext. with erythema and hyperemia. seems to be improved on visual inspection compared to yesterday. pitting edema b/l lower Ext. MSK: pitting edema b/l lower EXt. mildly tender R lower Ext. neuro: CN 2-12 intact. alert and oriented to person place and time. Internal Medicine: Result - Labs CBC & Chem 7: 12/18/17 06:53 12/17/17 04:14 - ABG Interpretation ABG results: PT/INR, D-dimer PT 12.8 Seconds (9.4-12.1) H 12/16/17 03:27 - VTE Documentation of Mechanical Device: Graduated compression elastic hosiery Consult Discharge Plan - Plan Referrals: Carlos Harley Jr, MD [Primary Care Provider] - <Maynor Valderrama - Last Filed: 12/19/17 18:09> Date of Encounter: 12/19/17 - Assessment and plan (1) Autoimmune hepatitis Current Visit: Yes Status: Chronic (2) Thrombocytopenia Current Visit: Yes Status: Resolved (3) Hepatic encephalopathy Current Visit: Yes Status: Acute (4) Liver cirrhosis Current Visit: Yes Status: Chronic Qualifiers: Hepatic cirrhosis type: unspecified hepatic cirrhosis Ascites presence: with ascites Qualified Code(s): K74.60 - Unspecified cirrhosis of liver; R18.8 - Other ascites (5) Cellulitis Current Visit: Yes Status: Acute Qualifiers: Site of cellulitis: extremity Site of cellulitis of extremity: lower extremity Laterality: right Qualified Code(s): L03.115 - Cellulitis of right lower limb (6) GI bleed Current Visit: Yes Status: Suspected Qualifiers: GI bleed type/associated pathology: unspecified gastrointestinal hemorrhage type Qualified Code(s): K92.2 - Gastrointestinal hemorrhage, unspecified (7) Acute hepatic encephalopathy Current Visit: Yes Status: Resolved Assessment and plan: Acute hepatic encephalopathy secondary to autoimmune hepatitis with cirrhosis Patient has had 1.5 weeks altered mentation, worse today Family admits to alternating periods of constipation and diarrhea, unaware of her current bowel patterns Likely, increased inflammation and bacterial load in gut from recent enteritis plays role Alternatively, consider SBP as possible source of infection, which could worsen We will bedside ultrasound abd tomorrow, consider paracentesis as needed Start lactulose BID with goal of 3 loose bowel movements per day Monitor mental status Repeat CMP in morning 12/16 Worsened mental status Increase lactulose to TID, Add Rifaximin 400mg BID 12/19 - improved. (8) Diabetes mellitus Current Visit: Yes Status: Acute Assessment and plan: Uncontrolled. Continue as is for now. Qualifiers: Diabetes mellitus type: type 2 Diabetes mellitus half-way insulin use: with half-way use Diabetes mellitus complication status: with hyperglycemia Qualified Code(s): E11.65 - Type 2 diabetes mellitus with hyperglycemia; Z79.4 - salvage determiner (current) use of insulin (9) HTN (hypertension) Current Visit: No Status: Chronic Qualifiers: Hypertension type: essential hypertension Qualified Code(s): I10 - Essential (primary) hypertension - Time Spent With Patient Total time spent is greater than 50% in coordination of care (as documented) at patient's floor/unit and/or counseling patient: - Constitutional Vitals: Temp Pulse Resp BP Pulse Ox 97.8 F 90 18 120/76 98 12/19/17 15:48 12/19/17 15:48 12/19/17 15:48 12/19/17 15:48 12/19/17 15:48 Internal Medicine: Result - Labs CBC & Chem 7: 12/19/17 12:32 12/17/17 04:14 Labs: Short CBC 12/19/17 Range/Units 12:32 WBC 7.5 (4.3-11.1) K/mcL Hgb 8.4 L (11.5-15.4) g/dL Hct 24.3 L (35.3-44.9) % Plt Count 60 L (140-400) K/mcL Neutrophils # 7.1 (1.6-8.9) K/mcL - ABG Interpretation ABG results: PT/INR, D-dimer PT 12.8 Seconds (9.4-12.1) H 12/16/17 03:27 - Attending Attestation I examined this patient and my medical decision-making was reviewed with the Resident Physician on 12/19/17. I agree with the documented findings, disposition and treatment plan as described except to the extent set forth below. Ms Johnston is currently admitted for acute hepatic encephalopathy. She has developed cellulitis as well. She remains moderate to high risk due to potential for worsening clinical status. Ms Johnston if feeling OK. Erythema is improving. No fever or chills. No abd pain at this time Exam alert Comfortable Mucus membranes dry Heart reg No wheeze abd soft and nontender. I/P 1. Hepatic enceph - improved with treatment. 2. Cellulitis - continue IV abx 3 Anemia - unsure if plan for endoscopy. H/H stable today. Further diagnoses and plan as above.
[2017-12-19 13:02] LABS: Hematocrit 24.3 % (35.3-44.9); Mean Corpuscular Volume 108.5 fL (83.0-100.0); Red Blood Count 2.24 M/mcL (3.82-4.97)
[2017-12-19 13:04] LABS: Hemoglobin 8.4 g/dL (11.5-15.4); Immature Platelets 7.6 % (1.1-6.1); Mean Corpuscular HGB Conc 34.6 g/dL (31.6-35.5); Mean Corpuscular Hemoglobin 37.5 pg (28.0-33.3); Mean Platelet Volume 11.7 fL (9.4-12.4); Red Cell Distribution Width 14.1 % (11.5-14.5)
[2017-12-19 13:06] LABS: Platelet Count 60 K/mcL (140-400)
[2017-12-19 13:26] LABS: Eosinophils # 0.1 K/mcL (0.0-0.6); Lymphocytes # 0.3 K/mcL (0.6-4.6); Neutrophils # 7.1 K/mcL (1.6-8.9); Platelet Estimate Decreased (Normal)
[2017-12-19 13:27] LABS: Anisocytosis 1+ (Not Present); Macrocytosis Present (Not Present)
[2017-12-19] MEDS ORDERED: Aminoglycoside Consult 1 EACH MC ONE (17:27)
[2017-12-19] MEDS: Insulin DETEMIR 100 UNIT/ML X5UNITS SQ SCH (20:38)
[2017-12-20] MEDS: Piperacillin/Tazobactam 3.375 GM in 0.9 % Sodium Chloride Mini Bag 100 ML IVPB SCH ×2 (00:38→09:01)
[2017-12-20 07:02] LABS: Basophils % 0.2 %; Hemoglobin 8.1 g/dL (11.5-15.4); Immature Granulocytes % 5.9 % (0-4); Lymphocytes # 0.3 K/mcL (0.6-4.6); Mean Corpuscular HGB Conc 33.8 g/dL (31.6-35.5); Mean Corpuscular Hemoglobin 36.8 pg (28.0-33.3); Mean Corpuscular Volume 109.1 fL (83.0-100.0); Mean Platelet Volume 11.5 fL (9.4-12.4); Monocytes # 0.3 K/mcL (0.0-1.3); Monocytes % 5.2 %; Neutrophils # 4.5 K/mcL (1.6-8.9); Red Cell Distribution Width 14.2 % (11.5-14.5); Segmented Neutrophils % 83.7 %
[2017-12-20 07:03] LABS: Platelet Count 63 K/mcL (140-400)
[2017-12-20 07:21] LABS: Platelet Estimate Decreased (Normal)
[2017-12-20] MEDS ORDERED: Insulin LISPRO 300 UNITS/3 ML VIAL SQ SCH (08:55)
[2017-12-20] MEDS ORDERED: Insulin DETEMIR 100 UNIT/ML X5UNITS SQ SCH (08:55)
[2017-12-20] MEDS: Cholecalciferol (D-3) 1,000 UNIT TABLET PO SCH (09:01)
[2017-12-20] MEDS: Lactulose Oral Soln 20 GM/30 ML UDC PO SCH ×3 (09:01→21:39)
[2017-12-20] MEDS: Furosemide 40 MG/4 ML VIAL IVP SCH (09:01)
[2017-12-20] MEDS: Insulin LISPRO 300 UNITS/3 ML VIAL SQ SCH ×3 (09:02→16:47)
[2017-12-20 09:16] LABS: BUN/Creatinine Ratio 29 (6-26); Blood Urea Nitrogen 28 mg/dL (8-23); Calcium 8.5 mg/dL (8.6-10.3); Carbon Dioxide 28 mEq/L (23-29); Chloride 104 mEq/L (98-107); Glucose 249 mg/dL (70-105); Osmolality,Calculated 298 (280-300); Potassium 3.6 mEq/L (3.5-5.1); Sodium 137 mEq/L (136-145); eGFR For African Americans > 60 (> 60); eGFR For Non-African Americans 56 (> 60)
--- NOTE | 2017-12-20 10:29 | Internal Med Progress Note ---
<Amauri Woodard - Last Filed: 12/20/17 10:25> Date of Encounter: 12/20/17 Time of Encounter: 09:00 - Assessment and plan (1) Hepatic encephalopathy Current Visit: Yes Status: Acute Assessment and plan: Continue lactulose, add Rifaximin per GI Alert and oriented X3 (2) Cellulitis Current Visit: Yes Status: Acute Assessment and plan: Right posteromedial cellulitis, significantly better Severe erythema and hyperemia which has largely improved Patient is having pain associated with this Source: likely from previous bullae on posterior leg May influence mental status Start IV Vancomycin and Zosyn 12/20 Continues to improve dramatically We will de-escalate antibiotics to Augmentin There have been no positive cultures Qualifiers: Site of cellulitis: extremity Site of cellulitis of extremity: lower extremity Laterality: right Qualified Code(s): L03.115 - Cellulitis of right lower limb (3) Autoimmune hepatitis Current Visit: Yes Status: Chronic Assessment and plan: Stable, treat as above Otherwise continue home meds (4) HTN (hypertension) Current Visit: No Status: Chronic Assessment and plan: Continue home meds Qualifiers: Hypertension type: essential hypertension Qualified Code(s): I10 - Essential (primary) hypertension (5) Thrombocytopenia Current Visit: Yes Status: Resolved Assessment and plan: Stable (6) Diabetes mellitus Current Visit: Yes Status: Acute Assessment and plan: Uncontrolled. Continue as is for now. 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 insulin use: with halfway use Diabetes mellitus complication status: with hyperglycemia Qualified Code(s): E11.65 - Type 2 diabetes mellitus with hyperglycemia; Z79.4 - penitentiary (current) use of insulin (7) DVT prophylaxis Current Visit: Yes Status: Acute Assessment and plan: Cannot use chemical or mechanical prophylaxis due to bleeding risk and pain (8) GI bleed Current Visit: Yes Status: Suspected Assessment and plan: Concern for possible GI bleed History of GI bleed previously Monitor H/H, Consult to GI 12/20 Stable Hgb overnight Bowel prep tonight for possible EGD/Colonoscopy in the morning. Qualifiers: GI bleed type/associated pathology: unspecified gastrointestinal hemorrhage type Qualified Code(s): K92.2 - Gastrointestinal hemorrhage, unspecified - Time Spent With Patient Total time spent is greater than 50% in coordination of care (as documented) at patient's floor/unit and/or counseling patient: - Subjective Interval history: The patient is resting comfortably in bed at time of examination. She has no acute complaints although she does say that she continues to have trouble sleeping overnight. She otherwise feels well. - Constitutional Vitals: Temp Pulse Resp BP Pulse Ox 97.6 F 73 19 135/84 94 12/20/17 07:55 12/20/17 07:55 12/20/17 07:55 12/20/17 07:55 12/20/17 07:55 Exam: general: elderly female, slightly somnolescent HEENT: head symmetric and atraumatic. nontender. heart: RRR systolic 1/6 murmur heard best over aortic post lungs: CTA throughout abd: distended with contusions and petichiae as well as caput medusae. non tender elsewhere with no palpable masses. integumentary: many diffuse small abrasions in various stages of healing and small contusions. Cellulitis of lateral and medial proximal and distal lower Ext. with erythema and hyperemia. seems to be significantly improved on visual inspection compared to yesterday. pitting edema remains present in the right LE , however has largely resolved in the left. MSK: pitting edema b/l lower EXt. mildly tender R lower Ext. neuro: alert and oriented to person place and time. Internal Medicine: Result - Labs CBC & Chem 7: 12/20/17 06:49 12/20/17 06:45 Labs: Short CBC 12/19/17 12/20/17 Range/Units 12:32 06:49 WBC 7.5 5.4 (4.3-11.1) K/mcL Hgb 8.4 L 8.1 L (11.5-15.4) g/dL Hct 24.3 L 24.0 L (35.3-44.9) % Plt Count 60 L 63 L (140-400) K/mcL Neutrophils # 7.1 4.5 (1.6-8.9) K/mcL BMP 12/20/17 06:45 Sodium 137 Potassium 3.6 Chloride 104 Carbon Dioxide 28 BUN 28 H Creatinine 0.98 Glucose 249 H Calcium 8.5 L - ABG Interpretation ABG results: PT/INR, D-dimer PT 12.8 Seconds (9.4-12.1) H 12/16/17 03:27 - VTE Documentation of Mechanical Device: Graduated compression elastic hosiery Consult Discharge Plan - Plan Referrals: Carlos Harley Jr, MD [Primary Care Provider] - <Maynor Valderrama - Last Filed: 12/20/17 15:50> Date of Encounter: 12/20/17 - Assessment and plan (1) HTN (hypertension) Current Visit: No Status: Chronic Qualifiers: Hypertension type: essential hypertension Qualified Code(s): I10 - Essential (primary) hypertension (2) Autoimmune hepatitis Current Visit: Yes Status: Chronic (3) DVT prophylaxis Current Visit: Yes Status: Acute (4) Thrombocytopenia Current Visit: Yes Status: Resolved (5) Diabetes mellitus Current Visit: Yes Status: Acute Qualifiers: Diabetes mellitus type: type 2 Diabetes mellitus halfway insulin use: with keno terminal operator use Diabetes mellitus complication status: with hyperglycemia Qualified Code(s): E11.65 - Type 2 diabetes mellitus with hyperglycemia; Z79.4 - penitentiary (current) use of insulin (6) Hepatic encephalopathy Current Visit: Yes Status: Acute (7) Cellulitis Current Visit: Yes Status: Acute Qualifiers: Site of cellulitis: extremity Site of cellulitis of extremity: lower extremity Laterality: right Qualified Code(s): L03.115 - Cellulitis of right lower limb (8) GI bleed Current Visit: Yes Status: Suspected Qualifiers: GI bleed type/associated pathology: unspecified gastrointestinal hemorrhage type Qualified Code(s): K92.2 - Gastrointestinal hemorrhage, unspecified - Time Spent With Patient Total time spent is greater than 50% in coordination of care (as documented) at patient's floor/unit and/or counseling patient: - Constitutional Vitals: Temp Pulse Resp BP Pulse Ox 97.5 F L 81 18 121/82 96 12/20/17 11:10 12/20/17 11:10 12/20/17 11:10 12/20/17 11:10 12/20/17 11:10 Internal Medicine: Result - Labs CBC & Chem 7: 12/20/17 06:49 12/20/17 06:45 Labs: Short CBC 12/20/17 Range/Units 06:49 WBC 5.4 (4.3-11.1) K/mcL Hgb 8.1 L (11.5-15.4) g/dL Hct 24.0 L (35.3-44.9) % Plt Count 63 L (140-400) K/mcL Neutrophils # 4.5 (1.6-8.9) K/mcL BMP 12/20/17 06:45 Sodium 137 Potassium 3.6 Chloride 104 Carbon Dioxide 28 BUN 28 H Creatinine 0.98 Glucose 249 H Calcium 8.5 L - ABG Interpretation ABG results: PT/INR, D-dimer PT 12.8 Seconds (9.4-12.1) H 12/16/17 03:27 - Impressions Impressions Lower Extremity CT 12/17/17 10:04 IMPRESSION: 1. Nonspecific subcutaneous edema throughout the right lower extremity most pronounced at the leg, ankle and foot. Considerations include cellulitis, venous insufficiency and lymphedema. 2. Focal superficial fluid density lesion on the dorsum of the the midfoot may reflect a large blister. Direct visualization is suggested. 3. Small to moderate amount of pelvic free fluid. D/ / 12/17/2017 12:47:59 Huy Huffman MD / chris Interpreting Provider: Huy Huffman MD - Attending Attestation I examined this patient and my medical decision-making was reviewed with the Resident Physician on 12/20/17. I agree with the documented findings, disposition and treatment plan as described except to the extent set forth below. Ms Johnston is currently admitted for acute hepatic encephalopathy, cellulitis and anemia. She remains moderate to high risk due to potential for worsening clinical status. Ms Johnston continues to be mentally alert and oriented. No fever or chills. Cellulitis continues to improve on abx. Loose stool with Lactulose. Exam Alert Oriented Mucus membranes dry Heart reg No wheeze Abd soft Erythema improving. I/P 1. Hepatic encephalopathy 2. Anemia - Further diagnoses and plan as above.
[2017-12-20] MEDS ORDERED: Furosemide 40 MG/4 ML VIAL IVP SCH (10:36)
[2017-12-20] MEDS ORDERED: SODIUM CHLORIDE/NAHCO3/KCL/PEG 4,000 ML SOLN.RECON PO ONE (16:00)
[2017-12-21 05:47] LABS: Basophils % 0.3 %
[2017-12-21 05:49] LABS: Eosinophils % 0.3 %; Hematocrit 26.4 % (35.3-44.9); Immature Granulocytes % 4.7 % (0-4); Immature Platelets 5.2 % (1.1-6.1); Lymphocytes # 0.4 K/mcL (0.6-4.6); Lymphocytes % 5.9 %; Mean Corpuscular HGB Conc 34.1 g/dL (31.6-35.5); Mean Corpuscular Hemoglobin 37.3 pg (28.0-33.3); Mean Corpuscular Volume 109.5 fL (83.0-100.0); Mean Platelet Volume 11.1 fL (9.4-12.4); Monocytes # 0.4 K/mcL (0.0-1.3); Monocytes % 5.8 %; Neutrophils # 5.5 K/mcL (1.6-8.9); Red Blood Count 2.41 M/mcL (3.82-4.97); Red Cell Distribution Width 14.3 % (11.5-14.5)
[2017-12-21 06:09] LABS: Platelet Count 74 K/mcL (140-400)
[2017-12-21 06:11] LABS: Macrocytosis Present (Not Present); Platelet Estimate Decreased (Normal)
[2017-12-21] MEDS: Insulin LISPRO 300 UNITS/3 ML VIAL SQ SCH ×2 (07:59→11:37)
[2017-12-21] MEDS: Cholecalciferol (D-3) 1,000 UNIT TABLET PO SCH (08:22)
[2017-12-21] MEDS: Lactulose Oral Soln 20 GM/30 ML UDC PO SCH ×2 (08:22→15:10)
--- NOTE | 2017-12-21 10:46 | Palliative Progress Note ---
Date of Encounter: 12/21/17 Time of Encounter: 10:35 - Assessment and plan (1) Generalized pain Current Visit: Yes Status: Acute Assessment and plan: Has not utilized pain medications - has Oxycodone/Tramadol available PRN. (2) Advance care planning Current Visit: Yes Status: Acute Assessment and plan: Patient is hoping to be discharged today - unknown if she will have EGD today. Plan is to return to [facility]. She has follow up week after next with Dr. Ortiz at [facility]. Patient has completed her power of deputy county attorney, and code status is in place. She desires to continue present management for her autoimmune hepatitis at this time. (3) Autoimmune hepatitis Current Visit: Yes Status: Chronic (4) Acute hepatic encephalopathy Current Visit: Yes Status: Resolved (5) Cellulitis Current Visit: Yes Status: Acute Qualifiers: Site of cellulitis: extremity Site of cellulitis of extremity: lower extremity Laterality: right Qualified Code(s): L03.115 - Cellulitis of right lower limb (6) GI bleed Current Visit: Yes Status: Suspected Qualifiers: GI bleed type/associated pathology: unspecified gastrointestinal hemorrhage type Qualified Code(s): K92.2 - Gastrointestinal hemorrhage, unspecified - Time Spent With Patient Total time spent is greater than 50% in coordination of care (as documented) at patient's floor/unit and/or counseling patient: - Subjective Interval history: Patient awake and alert. Family at bedside. She refused bowel prep for scopes last pm, is willing to have EGD here, or states she would be fine to have later at [facility]. Denies pain or discomfort. States legs feeling much better. - Constitutional Vitals: Abnormal lab results RBC 2.41 M/mcL (3.82-4.97) L 12/21/17 05:24 Hgb 9.0 g/dL (11.5-15.4) L 12/21/17 05:24 Hct 26.4 % (35.3-44.9) L 12/21/17 05:24 MCV 109.5 fL (83.0-100.0) H 12/21/17 05:24 MCH 37.3 pg (28.0-33.3) H 12/21/17 05:24 Plt Count 74 K/mcL (140-400) L 12/21/17 05:24 Immature Gran % 4.7 % (0-4) H 12/21/17 05:24 Band Neutrophils % 5.0 % (0-4) H 12/19/17 12:32 Lymphocytes # 0.4 K/mcL (0.6-4.6) L 12/21/17 05:24 Platelet Estimate Decreased (Normal) L 12/21/17 05:24 Anisocytosis 1+ (Not Present) A 12/19/17 12:32 Macrocytosis Present (Not Present) A 12/21/17 05:24 PT 12.8 Seconds (9.4-12.1) H 12/16/17 03:27 APTT 25.1 Seconds (26.0-36.0) L 12/15/17 13:21 BUN 28 mg/dL (8-23) H 12/20/17 06:45 Est GFR (Non-Af Amer) 56 (> 60) L 12/20/17 06:45 BUN/Creatinine Ratio 29 (6-26) H 12/20/17 06:45 Glucose 249 mg/dL (70-105) H 12/20/17 06:45 Hemoglobin A1c 6.5 % (-5.6) H 12/16/17 03:27 Calcium 8.5 mg/dL (8.6-10.3) L 12/20/17 06:45 Total Bilirubin 1.2 mg/dL (0.3-1.0) H 12/16/17 03:27 Direct Bilirubin 0.3 mg/dL (0.0-0.2) H 12/15/17 13:21 Ammonia 86 mcmol/L (16-53) H 12/16/17 03:27 Serum Total Protein 5.5 g/dL (6.4-8.9) L 12/16/17 03:27 Albumin 2.8 g/dL (3.5-5.7) L 12/16/17 03:27 Albumin/Globulin Ratio 1.0 (1.1-2.2) L 12/16/17 03:27 Methylmalonic Acid 0.65 umol/L (0.00-0.40) H 12/16/17 03:27 Ur Leukocyte Esterase Trace (Negative) H 12/15/17 13:16 Urine Microscopic WBC 3-5 per hpf (0-3) H 12/15/17 13:16 Ur Squamous Epith Cells Many per lpf (None-Few) H 12/15/17 13:16 Urine Yeast Many per hpf (None Seen) H 12/15/17 13:16 Ur Culture Indicated? NO. (NO) A 12/15/17 13:16 Vancomycin Trough 14 mcg/mL (5-10) H 12/18/17 09:20 General appearance: Present: no acute distress - Respiratory Respiratory exam: Present: decreased breath sounds, CTAB - Cardiovascular Cardiovascular exam: Present: +S1, +S2 - Extremities Exam Additional comments: Decreased edema to bilateral lower extremities with some weeping, but improved from last week. Some residual erythema - Neurological Exam Neurological exam: Present: alert, oriented X3, strengths equal and symetr throughout - Skin Skin exam: Present: dry, pallor, warm Palliative Quality Palliative Quality: Screen for Code Status: Yes, Screen for Goals of Care: Yes, Screen for Pain: Yes, If Pain Regimen Started, Initiate Bowel Regimen: NA, Screen for Nausea/Vomitting: Yes Code Status: 12/15/17 17:12 CODE [Resuscitation Status: Active] [RES] Routine Comment: Resuscitation Status: [id number] - Labs CBC & Chem 7: 12/21/17 05:24 12/20/17 06:45 Labs: Laboratory Results - last 24 hr 12/20/17 12/20/17 12/20/17 07:52 11:08 15:35 WBC RBC Hgb Hct MCV MCH MCHC RDW Plt Count MPV Immature Gran % Seg Neutrophils % Lymphocytes % Monocytes % Eosinophils % Basophils % Neutrophils # Lymphocytes # Monocytes # Eosinophils # Basophils # Platelet Estimate Immature Plt Fraction Macrocytosis POC Glucose 233 H 217 H 296 H 12/21/17 12/21/17 05:24 07:57 WBC 6.6 RBC 2.41 L Hgb 9.0 L Hct 26.4 L MCV 109.5 H MCH 37.3 H MCHC 34.1 RDW 14.3 Plt Count 74 L MPV 11.1 Immature Gran % 4.7 H Seg Neutrophils % 83.0 Lymphocytes % 5.9 Monocytes % 5.8 Eosinophils % 0.3 Basophils % 0.3 Neutrophils # 5.5 Lymphocytes # 0.4 L Monocytes # 0.4 Eosinophils # 0.0 Basophils # 0.0 Platelet Estimate Decreased L Immature Plt Fraction 5.2 Macrocytosis Present A POC Glucose 98 - Impressions Impressions Lower Extremity CT 12/17/17 10:04 IMPRESSION: 1. Nonspecific subcutaneous edema throughout the right lower extremity most pronounced at the leg, ankle and foot. Considerations include cellulitis, venous insufficiency and lymphedema. 2. Focal superficial fluid density lesion on the dorsum of the the midfoot may reflect a large blister. Direct visualization is suggested. 3. Small to moderate amount of pelvic free fluid. D/ / 12/17/2017 12:47:59 Huy Huffman MD / chris Interpreting Provider: Huy Huffman MD - ABG Interpretation ABG results: PT/INR, D-dimer PT 12.8 Seconds (9.4-12.1) H 12/16/17 03:27 Consult Discharge Plan - Plan Referrals: Carlos Harley Jr, MD [Primary Care Provider] -
[2017-12-21] MEDS ORDERED: *HR* Propofol 200 MG/20 ML VIAL IVP ONE (12:57)
[2017-12-21] MEDS ORDERED: Lidocaine -MPF 2% 2 ML VIAL ONE (12:57)
--- NOTE | 2017-12-21 13:50 | Anesthesia Evaluation PreOp ---
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: Seizures (remote history, not being medically treated), Other ( hepatic encephalopathy) Other Medical History: Hepatic (autoimmune hepatitis, cirrhosis), Renal (CKD), Diabetes Type II, GERD, Other (thrombocytopenia) Anesthesia History: No Prior Anesthetic Complications, Past Anesthesia Alcohol Use: none Drug use: none Medications and Allergies Budesonide [Entocort EC] 3 mg PO QAM 11/21/16 [History] Carvedilol 12.5 mg PO DAILY 11/21/16 [History] Cholecalciferol (D-3) [Vitamin D] 2,000 unit PO DAILY 11/21/16 [History] Furosemide [Lasix] 40 mg PO DAILY PRN 11/21/16 [History] Spironolactone [Aldactone] 100 mg PO BID PRN 11/21/16 [History] Insulin Glargine,Hum.rec.anlog [Basaglar Kwikpen U-100] 10 unit SQ HS 07/10/17 [ History] 3 Allergy/AdvReac Type Severity Reaction Status Date / Time No Known Allergies Allergy Verified 11/16/17 13:24 - Meds/Allergy Pre-op Review Medications Reviewed: Yes Allergies Reviewed: Yes Beta Blockers on Current Med List: Yes If Beta Blockers taken, Date/Time (Last Dose taken): 12/21/2017 at 0822 Anesthesia Results - Labs 12/21/17 05:24 12/20/17 06:45 - Imaging EKG: report reviewed (12/15/2017 SINUS RHYTHM MARKED LEFT AXIS DEVIATION [QRS AXIS < -30] PROBABLE LATERAL MYOCARDIAL INFARCTION [35 ms Q WAVE IN I/aVL/V5/V6] , OF INDETERMINATE AGE Left axis deviation POOR R WAVE PROGRESSION) Anesthesia Exam Vital Signs/O2 Sat/Glucose, Most Recent Temp Pulse Resp BP Pulse Ox 97.5 F L 77 15 116/70 97 12/21/17 11:23 12/21/17 11:23 12/21/17 11:23 12/21/17 11:23 12/21/17 11:23 Blood Glucose* 92 Height: 5'5''/1.65m Weight: 183 lbs/83.2 kg NPO (# of Hours): 8 Pain Scale: 0 Pain Scale Used: Numeric (1 - 10) - HEENT Pupil (Motor): EOMI Mallampati: III Teeth: Normal Oral Opening: Greater than 3 - ANODIZE MACHINE OPERATOR LOC: Oriented 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
[2017-12-21] MEDS ORDERED: Tetracaine/Benzocaine/Butamben 200MG/SPRAY (100SPY/BOT) MM ONE (14:12)
[2017-12-21] MEDS ORDERED: Simethicone 40 MG/0.6 ML MLS IR ONE (14:12)
--- NOTE | 2017-12-21 14:16 | Discharge Summary ---
<Amauri Woodard - Last Filed: 12/21/17 14:36> Date of Encounter: 12/21/17 - Discharge Diagnosis (1) Hepatic encephalopathy Status: Acute (2) Cellulitis Status: Acute Qualifiers: Site of cellulitis: extremity Site of cellulitis of extremity: lower extremity Laterality: right Qualified Code(s): L03.115 - Cellulitis of right lower limb (3) GI bleed Status: Suspected Qualifiers: GI bleed type/associated pathology: unspecified gastrointestinal hemorrhage type Qualified Code(s): K92.2 - Gastrointestinal hemorrhage, unspecified (4) Autoimmune hepatitis Status: Chronic (5) HTN (hypertension) Status: Chronic Qualifiers: Hypertension type: essential hypertension Qualified Code(s): I10 - Essential (primary) hypertension (6) Thrombocytopenia Status: Resolved (7) Diabetes mellitus Status: Acute Qualifiers: Diabetes mellitus type: type 2 Diabetes mellitus group home insulin use: with dedicated intermodal truck driver use Diabetes mellitus complication status: with hyperglycemia Qualified Code(s): E11.65 - Type 2 diabetes mellitus with hyperglycemia; Z79.4 - [facility] (current) use of insulin (8) DVT prophylaxis Status: Acute Hospital course: Ms. Johnston is a 72 year old female - Time Spent with Patient Total time spent providing and/or coordinating discharge services: - Discharge Medications Prescriptions: OXYCODONE Oral CONC [Oxycodone Oral Conc] 2.5 mg SL Q4HR PRN 2 Days #10 oral.syg PRN Reason: Pain Amoxicillin/Clavulanate [Augmentin] 875 mg PO BIDWM 4 Days #8 tablet Lactulose 20 gm PO TID #90 udc Omeprazole [PriLOSEC] 20 mg PO DAILY #30 capsule.dr Home Medications: Budesonide [Entocort EC] 3 mg PO QAM 11/21/16 [History] Cholecalciferol (D-3) [Vitamin D] 2,000 unit PO DAILY 11/21/16 [History] Furosemide [Lasix] 40 mg PO DAILY PRN 11/21/16 [History] Spironolactone [Aldactone] 100 mg PO BID PRN 11/21/16 [History] Insulin Glargine,Hum.rec.anlog [Basaglar Kwikpen U-100] 10 unit SQ HS 07/10/17 [ History] Amoxicillin/Clavulanate [Augmentin] 875 mg PO BIDWM 4 Days #8 tablet 12/21/17 [ Rx] Carvedilol [Coreg] 6.25 mg PO BIDWM tablet 12/21/17 [Rx] Lactulose 20 gm PO TID #90 udc 12/21/17 [Rx] OXYCODONE Oral CONC [Oxycodone Oral Conc] 2.5 mg SL Q4HR PRN 2 Days #10 oral.syg 12/21/17 [Rx] Omeprazole [PriLOSEC] 20 mg PO DAILY #30 capsule. 12/21/17 [Rx] Allergies/Adverse Reactions: 3 Allergy/AdvReac Type Severity Reaction Status Date / Time No Known Allergies Allergy Verified 11/16/17 13:24 Date of admission: 12/15/17 16:04 Primary care physician: Carlos Harley Jr, MD Consults: 12/15/17 17:02 Consult to Pastoral Services [CONS] Routine Comment: Consult to Driver Helper [CONS] Routine Reason for SW Consult: Patient came from [facility] for pt/ot after d/c from another facility 1 week ago. Patient will need to return. 12/18/17 09:09 Consult to Palliative Care [CONS] Routine Comment: Consulting Provider: [facility]annie Reason for Consult: End stage liver disease. Family requesting info on hospice. Call Completed: Yes 12/18/17 09:31 Consult to Gastroenterology [CONS] Routine Consulting Provider: Gastroenterology Jeannie Reason for Consult: GI Bleed, hx of bleed needing transfusion Call Completed: Yes 12/19/17 15:29 Consult to Wound Care [CONS] Routine Reason for Consult: Blisters to top of R foot and beind bilateral knees Call Completed: No - Constitutional Vitals: Temp Pulse Resp BP Pulse Ox 98.1 F 75 16 124/70 95 12/21/17 14:03 12/21/17 14:03 12/21/17 14:03 12/21/17 14:03 12/21/17 14:03 - Patient Status Disposition: Home, Self-Care Condition: Fair - Discharge Instructions Follow Up With: Carlos Harley Jr, MD [Primary Care Provider] - <AlbertkarishmaBelindaleigh Bolivar - Last Filed: 12/21/17 15:58> - NOTES TO OUTPATIENT PROVIDER Notes to Outpatient Provider: We treated Mrs. Johnston for hepatic encephalopathy with lactulose and rifaximin. continue lactulose. We treated her for cellulitis of the lower R Ext. with vanc + pip/tazo tapered to augmentin for a total of 10 days of antibiotics. Both conditions have improved. Date of Encounter: 12/21/17 Time of Encounter: 09:30 - Discharge Diagnosis (1) Hepatic encephalopathy Priority: Primary Status: Acute Comments: continue lactulose at home, goal 3 bowel movements per day. follow up with general manager food at earliest convenience (2) Cellulitis Priority: Secondary Status: Acute Comments: improved on antibiotics. discharge on augmentin for 4 more days for a total of 10 day course. Qualifiers: Site of cellulitis: extremity Site of cellulitis of extremity: lower extremity Laterality: right Qualified Code(s): L03.115 - Cellulitis of right lower limb (3) Liver cirrhosis Priority: Secondary Status: Chronic Comments: chronic and stable managed by general manager food at [facility]. continue home spironolactone continue home lasix to combat edema continue home budesonide continue lactulose, management per primary vs. general manager food Qualifiers: Hepatic cirrhosis type: unspecified hepatic cirrhosis Ascites presence: with ascites Qualified Code(s): K74.60 - Unspecified cirrhosis of liver; R18.8 - Other ascites (4) Diabetes mellitus Priority: Secondary Status: Acute Comments: continue home insulin regimen carefully monitor lower Extremities for wounds to avoid worsening cellulitis Qualifiers: Diabetes mellitus type: type 2 Diabetes mellitus dedicated intermodal truck driver insulin use: with group home use Diabetes mellitus complication status: with hyperglycemia Qualified Code(s): E11.65 - Type 2 diabetes mellitus with hyperglycemia; Z79.4 - [facility] (current) use of insulin (5) Anemia Priority: Secondary Status: Chronic Comments: EGD report on 12/21 says no active bleeding despite grade one varices, hiatal hernia, and gastritis. patient refused colonoscopy. outpatient colonoscopy may be appropriate Qualifiers: Anemia type: other cause Other causes of anemia: chronic disease, other Qualified Code(s): D63.8 - Anemia in other chronic diseases classified elsewhere (6) Chronic kidney disease (CKD) Priority: Secondary Status: Acute Comments: chronic stable Qualifiers: Chronic kidney disease stage: stage 3 (moderate) Qualified Code(s): N18.3 - Chronic kidney disease, stage 3 (moderate) (7) Thrombocytopenia Priority: Secondary Status: Chronic Comments: chronic stable (8) HTN (hypertension) Priority: Secondary Status: Chronic Comments: continue home carvedilol and furosemide Qualifiers: Hypertension type: essential hypertension Qualified Code(s): I10 - Essential (primary) hypertension Hospital course: Ms. Johnston is a 72 year old female who presented on 12/15 with hepatic encephalopathy. 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 We treated her with lactulose and rifaximin which improved her encephalopathic state. We discovered cellulitis of the lower R Ext on 12/16 and treated with vancomycin + pip/tazo then switched to amoxicillin/ clavulanic acid today to be continued at home for a total of ten day course. The cellulitis has improved. We were concerned about a GI bleed and a EGD today showed no active bleeding. the patient refused a colonoscopy but this may be appopriate on an outpatient basis. She should continue lactulose use at home as well as other listed medications. For more detailed information please refer to individual assessment and plan. - Time Spent with Patient Total time spent providing and/or coordinating discharge services: Less than 30 minutes Date of admission: 12/15/17 16:04 Primary care physician: Carlos Harley Jr, MD Consults: 12/15/17 17:02 Consult to Pastoral Services [CONS] Routine Comment: Consult to Driver Helper [CONS] Routine Reason for SW Consult: Patient came from [facility] for pt/ot after d/c from another facility 1 week ago. Patient will need to return. 12/18/17 09:09 Consult to Palliative Care [CONS] Routine Comment: Consulting Provider: Palliative Care Jeannie Reason for Consult: End stage liver disease. Family requesting info on hospice. Call Completed: Yes 12/18/17 09:31 Consult to Gastroenterology [CONS] Routine Consulting Provider: [facility] Jeannie Reason for Consult: GI Bleed, hx of bleed needing transfusion Call Completed: Yes 12/19/17 15:29 Consult to Wound Care [CONS] Routine Reason for Consult: Blisters to top of R foot and beind bilateral knees Call Completed: No Discharging clinician: Amauri Woodard Anticipated date of discharge: 12/21/17 - Constitutional Vitals: Temp Pulse Resp BP Pulse Ox 98.1 F 75 16 124/70 95 12/21/17 14:03 12/21/17 14:03 12/21/17 14:03 12/21/17 14:03 12/21/17 14:03 Exam: PE general: elderly female in no acute distress. heart: RRR no murmur heard today possibly secondary to increased hr. no gallop or rub. lungs: CTA throughout integumentary: decreased erythema and hyperemia in area of R lower Ext cellulitis. area still mildly tender. neuro: alert and oriented to person, place and time - VTE Documentation of Mechanical Device: Graduated compression elastic hosiery <Carson Evans - Last Filed: 12/21/17 16:19> Date of Encounter: 12/21/17 Hospital course: Ms. Johnston is a 72 year old female - Time Spent with Patient Total time spent providing and/or coordinating discharge services: Date of admission: 12/15/17 16:04 Primary care physician: Carlos Harley Jr, MD Consults: 12/15/17 17:02 Consult to Pastoral Services [CONS] Routine Comment: Consult to Driver Helper [CONS] Routine Reason for SW Consult: Patient came from [facility] for pt/ot after d/c from another facility 1 week ago. Patient will need to return. 12/18/17 09:09 Consult to Palliative Care [CONS] Routine Comment: Consulting Provider: Palliative [facility] Jeannie Reason for Consult: End stage liver disease. Family requesting info on hospice. Call Completed: Yes 12/18/17 09:31 Consult to Gastroenterology [CONS] Routine Consulting Provider: Gastroenterology Jeannie Reason for Consult: GI Bleed, hx of bleed needing transfusion Call Completed: Yes 12/19/17 15:29 Consult to Wound Care [CONS] Routine Reason for Consult: Blisters to top of R foot and beind bilateral knees Call Completed: No - Constitutional Vitals: Temp Pulse Resp BP Pulse Ox 98.1 F 75 16 124/70 95 12/21/17 14:03 12/21/17 14:03 12/21/17 14:03 12/21/17 14:03 12/21/17 14:03 - Attending Attestation I examined this patient and my medical decision-making was reviewed with the Resident Physician Dr. Woodard. I agree with the documented findings, disposition and treatment plan as described except to the extent set forth below. Ms. Johnston is a 8 y/o F with known cirrhoiss of liver, auto immune hepatitis, chronic varcies pt admitted here for hepatic encephalopathy. She was started on Latulose aodn Xifaxan. Her symptoms improved. She did have acute on chronic anemia. With her h/o varicel bleeding, she did got for EGD today which showed Grade 1 Esophageal varices,with no active bleeding. So will d/c her back to [facility] in stable condition today. Gen: A, A, O x3 Abd: Soft, NT, BS + Heart: S1S2+
--- NOTE | 2017-12-21 15:10 | Internal Med Progress Note ---
Date of Encounter: 12/21/17 Time of Encounter: 09:30 - Assessment and plan (1) Hepatic encephalopathy Current Visit: Yes Status: Acute Assessment and plan: continue lactulose. discontinue rifaximin. (2) Cellulitis Current Visit: Yes Status: Acute Assessment and plan: continue augmentin for 4 days. appearance of cellulitis has improved despite the step down from vanc + pip/ tazo. Qualifiers: Site of cellulitis: extremity Site of cellulitis of extremity: lower extremity Laterality: right Qualified Code(s): L03.115 - Cellulitis of right lower limb (3) Liver cirrhosis Current Visit: Yes Status: Chronic Assessment and plan: continue furosemide, budesonide, and lactulose Qualifiers: Hepatic cirrhosis type: unspecified hepatic cirrhosis Ascites presence: with ascites Qualified Code(s): K74.60 - Unspecified cirrhosis of liver; R18.8 - Other ascites (4) Diabetes mellitus Current Visit: Yes Status: Acute Assessment and plan: continue insulin regimen Qualifiers: Diabetes mellitus type: type 2 Diabetes mellitus fdc insulin use: with professor of 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 significant findings of gastritis, grade one esophageal varices, and hiatal hernia. patient refused colonoscopy. Qualifiers: Anemia type: other cause Other causes of anemia: chronic disease, other Qualified Code(s): D63.8 - Anemia in other chronic diseases classified elsewhere (6) Chronic kidney disease (CKD) Current Visit: Yes Status: Acute Assessment and plan: chronic stable Qualifiers: Chronic kidney disease stage: stage 3 (moderate) Qualified Code(s): N18.3 - Chronic kidney disease, stage 3 (moderate) (7) Thrombocytopenia Current Visit: Yes Status: Resolved Assessment and plan: chronic stable (8) HTN (hypertension) Current Visit: No Status: Chronic Assessment and plan: continue home medication regimen Qualifiers: Hypertension type: essential hypertension Qualified Code(s): I10 - Essential (primary) hypertension (9) Hyperammonemia Current Visit: Yes Status: Acute Assessment and plan: continue lactulose. discontinue rifaximin (10) DVT prophylaxis Current Visit: Yes Status: Acute Assessment and plan: prophylaxis not possible due to risk of bleeding and pain - Subjective Interval history: Mrs. Johnston is a 72 Yo f with history of DVT, autoimmune liver cirrhosis, and macrocytic anemia who is being treated for hepatic encephalopathy that presented on 12/15. cellulitis was discovered the next day and we are treating with augmentin as a step-down from vancomycin and pip/tazo as bacterial blood cultures were negative and patient has continued to improve despite the antibiotic change yesterday. She continues to have a low H/H of 9.0 and 26.4 respectively and an EGD was performed today which showed grade one varices, gastritis, and hiatal hernia as per GI. They estimate no blood loss from these sources. She refused to have a colonoscopy performed secondary to "nasty" preparatory drink. Today she denies any new pain. She continues to have mild pain in R leg. She denies any new problems, dizziness, headache, abd. pain, burning with urination. Last bowel movement was yesterday evening. - Constitutional Vitals: Temp Pulse Resp BP Pulse Ox 98.1 F 75 16 124/70 95 12/21/17 14:03 12/21/17 14:03 12/21/17 14:03 12/21/17 14:03 12/21/17 14:03 Exam: PE general: patient in good spirits and no acute distress heart: RRR no murmur heard possibly secondary to increased heart rate. no gallops or rubs. lungs: CTA throughout integumentary: R lower Ext: decreased amount of erythema and hyperemia in area of cellulitis. otherwise diffuse petichiae, contusions, and abrations continue to be present. neuro: alert and oriented to person, place, and time Internal Medicine: Result - Labs CBC & Chem 7: 12/21/17 05:24 12/20/17 06:45 Labs: Short CBC 12/21/17 Range/Units 05:24 WBC 6.6 (4.3-11.1) K/mcL Hgb 9.0 L (11.5-15.4) g/dL Hct 26.4 L (35.3-44.9) % Plt Count 74 L (140-400) K/mcL Neutrophils # 5.5 (1.6-8.9) K/mcL - ABG Interpretation ABG results: PT/INR, D-dimer PT 12.8 Seconds (9.4-12.1) H 12/16/17 03:27 - VTE Documentation of Mechanical Device: Graduated compression elastic hosiery Consult Discharge Plan - Plan Referrals: Carlos Harley Jr, MD [Primary Care Provider] - Prescriptions: Amoxicillin/Clavulanate [Augmentin] 875 mg PO BIDWM 4 Days #8 tablet Lactulose 20 gm PO TID #90 udc Omeprazole [PriLOSEC] 20 mg PO DAILY #30 capsule.
--- NOTE | 2017-12-21 16:03 | Physician Discharge Referral ---
ExtendedCare Referral Info Transfer To: [facility] Provider in Charge: Cristina Provider in Charge after Transfer: PCP Institutional Level of Care: Skilled - Diagnosis (1) Hepatic encephalopathy Priority: Primary Status: Acute (2) Cellulitis Priority: Secondary Status: Acute (3) GI bleed Priority: Secondary Status: Suspected (4) Autoimmune hepatitis Priority: Secondary Status: Chronic (5) HTN (hypertension) Priority: Secondary Status: Chronic (6) Thrombocytopenia Priority: Secondary Status: Chronic (7) Diabetes mellitus Priority: Secondary Status: Acute - Transfer Medications Prescriptions: OXYCODONE Oral CONC [Oxycodone Oral Conc] 2.5 mg SL Q4HR PRN 2 Days #10 oral.syg PRN Reason: Pain Amoxicillin/Clavulanate [Augmentin] 875 mg PO BIDWM 4 Days #8 tablet Lactulose 20 gm PO TID #90 udc Omeprazole [PriLOSEC] 20 mg PO DAILY #30 capsule. Home Medications: Budesonide [Entocort EC] 3 mg PO QAM 11/21/16 [History] Cholecalciferol (D-3) [Vitamin D] 2,000 unit PO DAILY 11/21/16 [History] Furosemide [Lasix] 40 mg PO DAILY PRN 11/21/16 [History] Spironolactone [Aldactone] 100 mg PO BID PRN 11/21/16 [History] Insulin Glargine,Hum.rec.anlog [Basaglar Kwikpen U-100] 10 unit SQ HS 07/10/17 [ History] Amoxicillin/Clavulanate [Augmentin] 875 mg PO BIDWM 4 Days #8 tablet 12/21/17 [ Rx] Carvedilol [Coreg] 6.25 mg PO BIDWM tablet 12/21/17 [Rx] Lactulose 20 gm PO TID #90 udc 12/21/17 [Rx] OXYCODONE Oral CONC [Oxycodone Oral Conc] 2.5 mg SL Q4HR PRN 2 Days #10 oral.syg 12/21/17 [Rx] Omeprazole [PriLOSEC] 20 mg PO DAILY #30 capsule. 12/21/17 [Rx] Allergies/Adverse Reactions: 3 Allergy/AdvReac Type Severity Reaction Status Date / Time No Known Allergies Allergy Verified 11/16/17 13:24 - Respiratory Orders Oxygen / L per min (titrate to spo2 88% as needed) Smoking Cessation: Smoking cessation has been advised. For more information, call the [place] Tobacco Quit Line at 4-885-FYFL-NOW. - Lab Orders Lab Orders: CBC (1 week) - Ancillary Orders May use pressure relief devices daily prn - Advance Directives Living Will: Yes Power of Stripper Black And White: Yes Code Status: DNR-Arrest/Don't Intubate - Mobility Orders Bedrest - Rehabiliation Orders Rehab Potential: Fair Rehab Orders: ROM Exercises, Evaluation for Physical Therapy, Evaluation for Occupational Therapy - Treatments Skin tear care topically daily PRN per policy - Diet Orders No Concentrated Sweets CERTIFICATION: I certify that the transfer of the above named patient to an Extended Care Facility is necessary for the continuing treatment of the diagnosis listed. The above information is true and accurate reflection of patient's current condition. Confidential - Redisclosure prohibited without a patient's written consent.
[2017-12-21 16:20] VITALS: BP 131/84
== END 2017-12-21 17:28 | disposition home or self-care (01) | DRG 441 ==
LOC: EMEROO 12:52 → 2ANU 12:52 → SUATTDRO 14:39 → 2ANU 15:53
PROVIDERS: ADMIT Internal Medicine; ATTEND Internal Medicine

== ENCOUNTER 2018-01-27 14:05 | Inpatient (IN) ==
--- NOTE | 2018-01-27 14:34 | Emergency Department Note ---
Disposition Clinical Impression: Deep vein thrombosis of lower extremity Qualifiers: Affected thrombotic vein of extremity: unspecified vein of extremity Chronicity : acute Laterality: bilateral Qualified Code(s): I82.403 - Acute embolism and thrombosis of unspecified deep veins of lower extremity, bilateral Cellulitis Qualifiers: Site of cellulitis: extremity Site of cellulitis of extremity: lower extremity Laterality: right Qualified Code(s): L03.115 - Cellulitis of right lower limb Disposition: Admitted As Inpatient Condition: Undetermined Referrals: Carlos Harley Jr, MD [Primary Care Provider] - Forms: ED Satisfaction Letter Time of Disposition: 15:23 Extremity Problem HPI - General Chief complaint: ED Extremity Problem,Nontraumatic Stated complaint: Bilateral DVT Time Seen by Provider: 01/27/18 14:10 Source: patient Mode of arrival: wheelchair Limitations: no limitations Nursing Notes Reviewed: Yes Vital Signs Reviewed: Yes - History of Present Illness HPI Narrative: 72-year-old female with history of diabetes and chronic ulceration of right lower extremity with a PICC line currently receiving vancomycin, history of DVT , on no anticoagulation, arrives to the emergency department with complaint of bilateral lower extremity swelling. The patient is been experiencing right lower extremity worse than left swelling with erythema and bruising. The patient had an outpatient DVT study that demonstrated bilateral lower extremity DVTs. The patient denies any associated chest pain or difficulty breathing. The patient was previously on Xarelto but is not currently taking any. The patient denies any other complaints at this time. She is resting comfortably in the room with obvious erythema and swelling to right lower extremity. The patient denies any melena or hematochezia. Apparently the patient's physician from nursing facility sent her here afterward for a [place] filter. Pain Scale: 5 - Related Data Home Medications Medication Instructions Recorded Confirmed Budesonide [Entocort EC] 3 mg PO QAM 11/21/16 12/15/17 Cholecalciferol (D-3) [Vitamin D] 2,000 unit PO DAILY 11/21/16 12/15/17 Furosemide [Lasix] 40 mg PO DAILY PRN 11/21/16 12/15/17 Insulin Glargine,Hum.rec.anlog 10 unit SQ HS 07/10/17 12/15/17 [Basaglar Kwikpen U-100] Previous Rx's Medication Instructions Recorded Amoxicillin/Clavulanate [Augmentin] 875 mg PO BIDWM 4 Days #8 tablet 12/21/17 Carvedilol [Coreg] 6.25 mg PO BIDWM tablet 12/21/17 Lactulose 20 gm PO TID #90 udc 12/21/17 OXYCODONE Oral CONC [Oxycodone 2.5 mg SL Q4HR PRN 2 Days #10 12/21/17 Oral Conc] oral.syg Omeprazole [PriLOSEC] 20 mg PO DAILY #30 capsule. 12/21/17 Rifaximin [Xifaxan] 400 mg PO BID tablet 12/21/17 Spironolactone [Aldactone] 50 mg PO BID PRN 30 Days 12/21/17 Allergies Allergy/AdvReac Type Severity Reaction Status Date / Time No Known Allergies Allergy Verified 11/16/17 13:24 All systems ED: reviewed and negative except as stated. Constitutional: Denies: fever, chills, weakness ENT ED: Denies: dysphagia Cardiovascular: Denies: chest pain Respiratory: Denies: dyspnea Gastrointestinal: Denies: abdominal pain, nausea, vomiting Genitourinary: Denies: urgency Musculoskeletal: Reports: myalgia. Denies: back pain, neck pain, arthralgia Integumentary: Reports: rash, lesions Neurological: Denies: headache, weakness, numbness, paresthesias Past Medical History - Past Medical History Attestation: Yes The following information was validated with the patient. 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 history - Social History Smoking Status: Never smoker Smokeless Tobacco Status: No Alcohol use: Reports: rarely Drug use: Reports: none Physical Exam - General Limitations: no limitations General appearance: alert, in no apparent distress - Head Head exam: atraumatic, normocephalic, normal inspection - Eye Eye exam: Present: normal appearance, PERRL, EOMI - ENT ENT exam: normal exam, normal oropharynx, mucous membranes moist - Neck Neck exam: Present: normal inspection, full ROM, trachea midline - Chest Chest inspection: Present: normal inspection, symmetric chest wall rise - Respiratory Respiratory exam: Present: normal lung sounds bilaterally - Cardiovascular Cardiovascular exam: Present: regular rate, normal rhythm, normal heart sounds - Abdominal Exam Abdominal exam: Present: soft, Non-Tender. Absent: tenderness, distention, guarding, rebound, rigidity - Extremities Exam Extremities exam: Present: full ROM, tenderness, other (Patient with RLE Edema, erythema, with diffuse pain on palpation. Right foot diabetic ulcer) - Neurological Exam Neurological exam: Present: alert, oriented X3 - Skin Skin exam: Present: warm, dry Course - Reevaluation(s) Reevaluation #1: Copy of patient's venous Doppler ultrasound reveals extensive bilateral lower extremity DVTs. Time: 14:54 Vital Signs Temperature 98.1 F 01/27/18 14:08 Pulse Rate 91 01/27/18 14:08 Respiratory Rate 16 01/27/18 14:08 Blood Pressure 100/65 01/27/18 14:08 O2 Sat by Pulse Oximetry 99 01/27/18 14:08 Temperature 98.1 F 01/27/18 14:08 Pulse Rate 91 01/27/18 14:08 Respiratory Rate 16 01/27/18 14:08 Blood Pressure 100/65 01/27/18 14:08 O2 Sat by Pulse Oximetry 99 01/27/18 14:08 Oxygen Delivery Oxygen Delivery Room Air Extremity Problem, Nontraumati - MDM Narrative Medical decision making narrative: Patient's workup in the emergency department demonstrates findings consistent with DVT and cellulitis. The patient is currently taking vancomycin so we started the patient Rocephin to cover for any streptococcal or any other bacteria that vancomycin cover for. The patient denies any chest pain or difficulty breathing. She has an autoimmune hepatitis which likely accounts for the patient's bilateral lower extremity ecchymosis. The patient was started on a heparin drip. The patient has no black or bloody stools. She denies any other complaints. We will admit the patient to the hospital this time for further workup and care. Accepted by Dr. Thornton. - Lab Data Lab results reviewed: Yes I reviewed the patient's lab results. Result diagrams: 01/27/18 14:14 01/27/18 14:14 Lab Results 01/27/18 01/27/18 01/27/18 Range/Units 14:14 14:14 14:14 WBC 9.7 (4.3-11.1) K/mcL RBC 3.00 L (3.82-4.97) M/mcL Hgb 10.6 L (11.5-15.4) g/dL Hct 31.7 L (35.3-44.9) % MCV 105.7 H (83.0-100.0) fL MCH 35.3 H (28.0-33.3) pg MCHC 33.4 (31.6-35.5) g/dL RDW 14.7 H (11.5-14.5) % Plt Count 64 L (140-400) K/mcL MPV 11.6 (9.4-12.4) fL Seg Neutrophils % 88.0 % Lymphocytes % 6.0 % Monocytes % 4.0 % Eosinophils % 2.0 % Neutrophils # 8.5 (1.6-8.9) K/mcL Lymphocytes # 0.6 (0.6-4.6) K/mcL Monocytes # 0.4 (0.0-1.3) K/mcL Eosinophils # 0.2 (0.0-0.6) K/mcL Platelet Estimate Decreased L (Normal) Immature Plt Fraction 7.3 H (1.1-6.1) % PT 12.9 H (9.4-12.1) Seconds INR 1.1 APTT 26.7 (26.0-36.0) Seconds Sodium 131 L (136-145) mEq/L Potassium 4.8 (3.5-5.1) mEq/L Chloride 99 (98-107) mEq/L Carbon Dioxide 27 (23-29) mEq/L BUN 42 H (8-23) mg/dL Creatinine 1.29 H (0.60-1.20) mg/dL Est GFR ( Amer) 49 L (> 60) Est GFR (Non-Af Amer) 41 L (> 60) BUN/Creatinine Ratio 33 H (6-26) Glucose 381 H (70-105) mg/dL Calculated Osmolality 298 (280-300) Calcium 8.6 (8.6-10.3) mg/dL - EKG Data EKG attestation: Yes I reviewed and interpreted this EKG. EKG results narrative: Heart rate 91 bpm. Normal sinus rhythm. Mild ST elevation. EKG similar to EKG from 12/15/17. No acute changes.
[2018-01-27 14:45] LABS: Hematocrit 31.7 % (35.3-44.9); Hemoglobin 10.6 g/dL (11.5-15.4); Immature Platelets 7.3 % (1.1-6.1); Mean Corpuscular HGB Conc 33.4 g/dL (31.6-35.5); Mean Corpuscular Hemoglobin 35.3 pg (28.0-33.3); Mean Corpuscular Volume 105.7 fL (83.0-100.0); Mean Platelet Volume 11.6 fL (9.4-12.4); Monocytes # 0.4 K/mcL (0.0-1.3); Red Cell Distribution Width 14.7 % (11.5-14.5)
[2018-01-27 14:48] LABS: INR 1.1; Prothrombin Time 12.9 Seconds (9.4-12.1)
[2018-01-27 14:51] LABS: Activated Partial Thrombo Time 26.7 Seconds (26.0-36.0); Platelet Count 64 K/mcL (140-400)
[2018-01-27 15:04] LABS: Calcium 8.6 mg/dL (8.6-10.3); Potassium 4.8 mEq/L (3.5-5.1)
[2018-01-27 15:05] LABS: Eosinophils # 0.2 K/mcL (0.0-0.6); Lymphocytes # 0.6 K/mcL (0.6-4.6); Neutrophils # 8.5 K/mcL (1.6-8.9); Platelet Estimate Decreased (Normal)
[2018-01-27] MEDS ORDERED: *HR* Heparin 5,000 UNIT/ML VIAL IVP ONE (15:07)
[2018-01-27] MEDS ORDERED: *HR* Heparin 5,000 UNIT/ML VIAL IVP PRN ×2 (15:07)
[2018-01-27] MEDS ORDERED: cefTRIAXone 1,000 MG in Water for inj. (sterile) 20 ML 10 ML IVP ONE (15:07)
[2018-01-27] MEDS ORDERED: 0.9 % Sodium Chloride 1,000 ML IVC ONE (15:07)
[2018-01-27] MEDS: Heparin 25,000 UNIT/500 ML D5W 25,000 UNIT/500 ML BAG IVC SCH (15:31)
[2018-01-27] MEDS ORDERED: Furosemide 40 MG TABLET PO PRN (16:48)
--- NOTE | 2018-01-27 17:34 | Emergency Department Note ---
Disposition Clinical Impression: Deep vein thrombosis of lower extremity Qualifiers: Affected thrombotic vein of extremity: unspecified vein of extremity Chronicity : acute Laterality: bilateral Qualified Code(s): I82.403 - Acute embolism and thrombosis of unspecified deep veins of lower extremity, bilateral Cellulitis Qualifiers: Site of cellulitis: extremity Site of cellulitis of extremity: lower extremity Laterality: right Qualified Code(s): L03.115 - Cellulitis of right lower limb Disposition: Admitted As Inpatient Condition: Undetermined General Adult HPI - General Chief complaint: ED Extremity Problem,Nontraumatic Stated complaint: Bilateral DVT Time Seen by Provider: 01/27/18 14:10 Source: patient Mode of arrival: wheelchair Limitations: no limitations - History of Present Illness Pain Scale: 2 - Related Data Home Medications Medication Instructions Recorded Confirmed Budesonide [Entocort EC] 3 mg PO QAM 11/21/16 01/27/18 Cholecalciferol (D-3) [Vitamin D] 2,000 unit PO DAILY 11/21/16 01/27/18 Furosemide [Lasix] 40 mg PO DAILY PRN 11/21/16 01/27/18 DiphenhydraMINE [Benadryl] 25 mg PO Q4H PRN 01/27/18 01/27/18 Insulin Glargine,Hum.rec.anlog 15 unit SQ BID 01/27/18 01/27/18 [Lantus Solostar] Insulin Human Regular [HumuLIN R] 5 unit IV TID 01/27/18 01/27/18 Sertraline [Zoloft] 50 mg PO DAILY 01/27/18 01/27/18 Vancomycin [Vancocin] 1,000 mg IV 0800 01/27/18 01/27/18 Previous Rx's Medication Instructions Recorded Carvedilol [Coreg] 6.25 mg PO BIDWM tablet 12/21/17 Lactulose 20 gm PO TID #90 udc 12/21/17 OXYCODONE Oral CONC [Oxycodone 2.5 mg SL Q4HR PRN 2 Days #10 12/21/17 Oral Conc] oral.syg Omeprazole [PriLOSEC] 20 mg PO DAILY #30 capsule. 12/21/17 Rifaximin [Xifaxan] 400 mg PO BID tablet 12/21/17 Spironolactone [Aldactone] 50 mg PO BID PRN 30 Days 12/21/17 Allergies Allergy/AdvReac Type Severity Reaction Status Date / Time No Known Allergies Allergy Verified 11/16/17 13:24 Constitutional: Denies: fever, chills, weakness ENT ED: Denies: dysphagia Cardiovascular: Denies: chest pain Respiratory: Denies: dyspnea Gastrointestinal: Denies: abdominal pain, nausea, vomiting Genitourinary: Denies: urgency Musculoskeletal: Reports: myalgia. 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 - Social History Smoking Status: Never smoker Smokeless Tobacco Status: No Alcohol use: Reports: rarely Drug use: Reports: none Physical Exam - General Limitations: no limitations General appearance: alert, in no apparent distress Course Vital Signs Temperature 98.1 F 01/27/18 14:08 Pulse Rate 91 01/27/18 14:08 Respiratory Rate 16 01/27/18 14:08 Blood Pressure 100/65 01/27/18 14:08 O2 Sat by Pulse Oximetry 99 01/27/18 14:08 Temperature 97.9 F 01/27/18 17:20 Pulse Rate 84 01/27/18 17:20 Respiratory Rate 16 01/27/18 17:20 Blood Pressure 116/78 01/27/18 17:20 O2 Sat by Pulse Oximetry 97 01/27/18 17:20 Oxygen Delivery Oxygen Delivery Room Air Medical Decision Making - Lab Data Result diagrams: 01/27/18 14:14 01/27/18 14:14 Lab Results 01/27/18 01/27/18 01/27/18 Range/Units 14:14 14:14 14:14 WBC 9.7 (4.3-11.1) K/mcL RBC 3.00 L (3.82-4.97) M/mcL Hgb 10.6 L (11.5-15.4) g/dL Hct 31.7 L (35.3-44.9) % MCV 105.7 H (83.0-100.0) fL MCH 35.3 H (28.0-33.3) pg MCHC 33.4 (31.6-35.5) g/dL RDW 14.7 H (11.5-14.5) % Plt Count 64 L (140-400) K/mcL MPV 11.6 (9.4-12.4) fL Seg Neutrophils % 88.0 % Lymphocytes % 6.0 % Monocytes % 4.0 % Eosinophils % 2.0 % Neutrophils # 8.5 (1.6-8.9) K/mcL Lymphocytes # 0.6 (0.6-4.6) K/mcL Monocytes # 0.4 (0.0-1.3) K/mcL Eosinophils # 0.2 (0.0-0.6) K/mcL Platelet Estimate Decreased L (Normal) Immature Plt Fraction 7.3 H (1.1-6.1) % PT 12.9 H (9.4-12.1) Seconds INR 1.1 APTT 26.7 (26.0-36.0) Seconds Heparin Anti-Xa, Unfract (0.30-0.70) IU/mL Sodium 131 L (136-145) mEq/L Potassium 4.8 (3.5-5.1) mEq/L Chloride 99 (98-107) mEq/L Carbon Dioxide 27 (23-29) mEq/L BUN 42 H (8-23) mg/dL Creatinine 1.29 H (0.60-1.20) mg/dL Est GFR ( Amer) 49 L (> 60) Est GFR (Non-Af Amer) 41 L (> 60) BUN/Creatinine Ratio 33 H (6-26) Glucose 381 H (70-105) mg/dL Calculated Osmolality 298 (280-300) Calcium 8.6 (8.6-10.3) mg/dL 01/27/18 Range/Units 16:20 WBC (4.3-11.1) K/mcL RBC (3.82-4.97) M/mcL Hgb (11.5-15.4) g/dL Hct (35.3-44.9) % MCV (83.0-100.0) fL MCH (28.0-33.3) pg MCHC (31.6-35.5) g/dL RDW (11.5-14.5) % Plt Count (140-400) K/mcL MPV (9.4-12.4) fL Seg Neutrophils % % Lymphocytes % % Monocytes % % Eosinophils % % Neutrophils # (1.6-8.9) K/mcL Lymphocytes # (0.6-4.6) K/mcL Monocytes # (0.0-1.3) K/mcL Eosinophils # (0.0-0.6) K/mcL Platelet Estimate (Normal) Immature Plt Fraction (1.1-6.1) % PT (9.4-12.1) Seconds INR APTT (26.0-36.0) Seconds Heparin Anti-Xa, Unfract 1.61 H* (0.30-0.70) IU/mL Sodium (136-145) mEq/L Potassium (3.5-5.1) mEq/L Chloride (98-107) mEq/L Carbon Dioxide (23-29) mEq/L BUN (8-23) mg/dL Creatinine (0.60-1.20) mg/dL Est GFR ( Amer) (> 60) Est GFR (Non-Af Amer) (> 60) BUN/Creatinine Ratio (6-26) Glucose (70-105) mg/dL Calculated Osmolality (280-300) Calcium (8.6-10.3) mg/dL Attestation Statement - Attestation Attestation: I examined this patient and my medical decision-making was reviewed with the Resident Physician. I agree with the documented findings, disposition and treatment plan as described except to the extent set forth below. Patient has documented extensive bilateral DVTs. No symptoms to suggest pulmonary embolism. Has already been on Xarelto not tolerated well. Heparin initiated in the ED, will be admitted.
[2018-01-27] MEDS ORDERED: Naloxone 0.4 MG/ML INJ IVP PRN (18:13)
--- NOTE | 2018-01-27 18:19 | Internal Med History&Physical ---
Date of Encounter: 01/27/18 Time of Encounter: 17:50 Internal Medicine - H&P: HPI Chief complaint: DVTs Admitted From: Emergency Dept Plans for Post Hospital Care: Transfer Group Home Facility History of present illness: Ms. Johnston is a 72 year old female with history of autoimmune hepatitis and DVTs presented to ED with new diagnosis of bilateral LE DVTs. She was subsequently admitted. Ms Johnston states that she stopped taking Xarelto in the SNF due to low platelet count and bruising. She has prior hx of DVT and follow with Dr. العراقي for her heme problems. She also has been at [facility] and has large wound on leg and has been on IV Vancomycin for this. She has pain in her legs, especially the right. No fever or chills. No dyspnea or chest pain. Has bruising related to liver disease and low platelets. She is reluctant to restart Xarelto and is currently on heparin drip. Denies abd pain and urinary symptoms. Past Med Surg Social Fam HX - Past Medical History Source: patient Medical history: diabetes, hepatitis, hypertension, other Additional medical history: autoimmune hepatitis Psychiatric history: no psych history - Past Surgical History Surgical History: , cataract, hysterectomy Additional surgical history: ortho surgery (left wrist) - Social History Smoking Status: Never smoker Smokeless Tobacco Status: No Alcohol use: rarely Drug use: none - Family History Mother Living Status: Hx Family Neurologic Disorders: Yes (ALZHEIMERS) Internal Medicine - H&P: Meds Budesonide [Entocort EC] 3 mg PO QAM 11/21/16 [History] Cholecalciferol (D-3) [Vitamin D] 2,000 unit PO DAILY 11/21/16 [History] Furosemide [Lasix] 40 mg PO DAILY PRN 11/21/16 [History] Carvedilol [Coreg] 6.25 mg PO BIDWM tablet 12/21/17 [Rx] Lactulose 20 gm PO TID #90 udc 12/21/17 [Rx] OXYCODONE Oral CONC [Oxycodone Oral Conc] 2.5 mg SL Q4HR PRN 2 Days #10 oral.syg 12/21/17 [Rx] Omeprazole [PriLOSEC] 20 mg PO DAILY #30 capsule. 12/21/17 [Rx] Rifaximin [Xifaxan] 400 mg PO BID tablet 12/21/17 [Rx] Spironolactone [Aldactone] 50 mg PO BID PRN 30 Days 12/21/17 [Rx] DiphenhydraMINE [Benadryl] 25 mg PO Q4H PRN 01/27/18 [History] Insulin Glargine,Hum.rec.anlog [Lantus Solostar] 15 unit SQ BID 01/27/18 [ History] Insulin Human Regular [HumuLIN R] 5 unit IV TID 01/27/18 [History] Sertraline [Zoloft] 50 mg PO DAILY 01/27/18 [History] Vancomycin [Vancocin] 1,000 mg IV 0800 01/27/18 [History] 3 Allergy/AdvReac Type Severity Reaction Status Date / Time No Known Allergies Allergy Verified 11/16/17 13:24 All Systems PM: A 10-system review of systems was performed and is negative for pertinent findings except as documented above in the HPI. - Constitutional Constitutional: as per HPI - EENT Eyes: no change in vision, no loss of vision Ears: no decreased hearing Nose, mouth and throat: dry mouth, no mouth pain, no sinus pain - Cardiovascular Cardiovascular ROS IM: no chest pain, no dyspnea, no dyspnea on exertion, no orthopnea - Respiratory Respiratory: no dyspnea, no dyspnea on exertion, no wheezing - Gastrointestinal Gastrointestinal: diarrhea (From lactulose), no abdominal pain Additional comments: Has autoimmune hepatitis. - Genitourinary Genitourinary: no dysuria, no nocturia, no urinary frequency - Musculoskeletal Musculoskeletal ROS IM: no arthralgias, no joint swelling - Integumentary Integumentary IM: non-healing lesions, jaundice, no rash - Neurological Neurological ROS: no confusion, no memory loss, no tingling - Psychiatric Psychiatric: no confusion - Endocrine Endocrine IM: no excessive sweating, no flushing - Hematologic/Lymphatic Hematologic/Lymphatic: easy bleeding, easy bruising - Allergic/Immunologic Allergic/Immunologic: no throat swelling, no wheezing - Constitutional Vitals: Temp Pulse Resp BP Pulse Ox 97.9 F 84 16 116/78 97 01/27/18 17:20 01/27/18 17:20 01/27/18 17:20 01/27/18 17:20 01/27/18 17:20 General appearance: Present: A&O X 3, pleasant, answers questions appropriately - Head Head exam: Present: atraumatic, normocephalic - Eye Eye exam: Present: EOMI, scleral icterus - ENT ENT exam: Present: mucous membranes dry - Neck Neck exam general surgery: Present: normal inspection. Absent: lymphadenopathy - Respiratory Respiratory exam: Present: CTAB. Absent: rales, respiratory distress, rhonchi, wheezes - Cardiovascular Cardiovascular exam: Present: RRR. Absent: systolic murmur, tachycardia - GI/Abdominal GI/Abdominal exam: Present: normal bowel sounds, soft. Absent: mass, tenderness - Extremities Exam Extremities exam: Present: warm Additional comments: Wound on R ankle - dressing intact. Edema and erythema bilaterally. - Neurological Exam Neurological exam: Present: alert, oriented X3 - Skin Skin exam: Present: erythema, warm Additional comments: Multiple ecchymoses Internal Med - H&P Results - Labs CBC & Chem 7: 01/27/18 14:14 01/27/18 14:14 - VTE Reasons for not Prescribing Prophylaxis: Medical contraindication - Assessment and plan (1) Deep vein thrombosis of lower extremity Current Visit: Yes Status: Acute Assessment and plan: Pt has bilateral DVTs. Currently on heparin drip. Hematology has been consulted for further recommendations on treatment. Pt feels she was sent here to have IVC filter - will make NPO in case this does happen tomorrow but most likely she will be placed back on anticoagulation. Pt is high risk due to need for IV heparin and potential for further morbidity. Qualifiers: Affected thrombotic vein of extremity: femoral Chronicity: acute Laterality: bilateral Qualified Code(s): I82.413 - Acute embolism and thrombosis of femoral vein, bilateral (2) Autoimmune hepatitis Current Visit: No Status: Chronic Assessment and plan: Chronic issue. Will continue her home PO medications. (3) Hepatic encephalopathy Current Visit: No Status: Resolved Assessment and plan: Pt with hx of hepatic encephalopathy which is controlled with her PO meds. (4) Diabetes mellitus Current Visit: No Status: Acute Assessment and plan: Accuchecks and sliding scale ordered. 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 Qualifiers: Anemia type: other cause Other causes of anemia: chronic disease, other Qualified Code(s): D63.8 - Anemia in other chronic diseases classified elsewhere (6) HTN (hypertension) Current Visit: No Status: Chronic Assessment and plan: Continue home medications. Qualifiers: Hypertension type: essential hypertension Qualified Code(s): I10 - Essential (primary) hypertension (7) Thrombocytopenia Current Visit: No Status: Chronic Assessment and plan: Due to hypersplenism. Monitor (8) Right foot ulcer Current Visit: Yes Status: Chronic Assessment and plan: Will continue IV Vancomycin per [facility] wound care. Qualifiers: Non-pressure ulcer stage: with fat layer exposed Qualified Code(s): L97.512 - Non-pressure chronic ulcer of other part of right foot with fat layer exposed - Time Spent With Patient Total time spent is greater than 50% in coordination of care (as documented) at patient's floor/unit and/or counseling patient:
[2018-01-27] MEDS ORDERED: D5% in Water 1,000 ML IVC PRN (19:21)
[2018-01-27] MEDS ORDERED: Dextrose Gel 15 GM/37.5 ML TUBE PO PRN ×2 (19:21)
[2018-01-27] MEDS ORDERED: *HR* Dextrose 50 % in Water (Syg) 50 ML SYRINGE IVP PRN (19:21)
[2018-01-27] MEDS: Lactulose Oral Soln 20 GM/30 ML UDC PO SCH (20:53)
[2018-01-27] MEDS: Insulin LISPRO 300 UNITS/3 ML VIAL SQ SCH (20:54)
[2018-01-27] MEDS: Insulin DETEMIR 100 UNIT/ML X5UNITS SQ SCH (21:13)
--- NOTE | 2018-01-27 22:42 | Event Note ---
Date of Encounter: 01/27/18 Time of Encounter: 22:00 Notified of pts. critical lab results of 1.10 by Zeus Chi RN. Results were from 21:30. Previously 1.61 at 16:20. Instructed nurse to follow protocol. Called Pharmacy to verify. Heparin to be held for one hour and rate reduced from 14 units/kg to 11 units/kg (18.5 mLs/HR) after waiting one hour. New re- check of heparin Anti-XA Unfractured ordered for 01:30.
[2018-01-27] MEDS: OXYCODONE Oral CONC 10 MG/0.5 ML ORAL.SYG SL PRN (23:31)
[2018-01-28 08:47] LABS: Basophils % 0.1 %; Hemoglobin 10.6 g/dL (11.5-15.4); Mean Corpuscular Volume 105.2 fL (83.0-100.0); Mean Platelet Volume 11.5 fL (9.4-12.4); Red Cell Distribution Width 14.6 % (11.5-14.5)
[2018-01-28 08:49] LABS: Eosinophils # 0.1 K/mcL (0.0-0.6); Eosinophils % 0.6 %; Hematocrit 32.1 % (35.3-44.9); Immature Granulocytes % 6.8 % (0-4); Immature Platelets 7.3 % (1.1-6.1); Lymphocytes # 0.3 K/mcL (0.6-4.6); Lymphocytes % 3.2 %; Mean Corpuscular Hemoglobin 34.8 pg (28.0-33.3); Monocytes # 0.4 K/mcL (0.0-1.3); Monocytes % 4.6 %; Red Blood Count 3.05 M/mcL (3.82-4.97); Segmented Neutrophils % 84.7 %
[2018-01-28 08:53] LABS: INR 1.1; Prothrombin Time 12.7 Seconds (9.4-12.1)
[2018-01-28 08:54] LABS: Neutrophils # 7.9 K/mcL (1.6-8.9); Platelet Count 63 K/mcL (140-400)
[2018-01-28] MEDS ORDERED: (Budesonide [Entocort Ec] 3 MG) PO SCH (09:00)
[2018-01-28 09:06] LABS: Albumin 2.6 g/dL (3.5-5.7); Albumin/Globulin Ratio 0.8 (1.1-2.2); Bilirubin,Total 0.7 mg/dL (0.3-1.0); Calcium 8.8 mg/dL (8.6-10.3); Globulin 3.2 g/dL (2.4-3.5); Magnesium 1.9 mg/dL (1.6-2.6); Potassium 4.7 mEq/L (3.5-5.1); Total Protein 5.8 g/dL (6.4-8.9)
[2018-01-28] MEDS: Insulin LISPRO 300 UNITS/3 ML VIAL SQ SCH ×4 (09:25→20:16)
[2018-01-28] MEDS: Cholecalciferol (D-3) 1,000 UNIT TABLET PO SCH (09:27)
[2018-01-28] MEDS: Lactulose Oral Soln 20 GM/30 ML UDC PO SCH ×3 (09:28→20:16)
[2018-01-28 09:51] LABS: Platelet Estimate Decreased (Normal)
--- NOTE | 2018-01-28 10:02 | Internal Med Progress Note ---
Hospitalist Progress Note - Encounter Date of Encounter: 01/28/18 Time of Encounter: 09:57 - Subjective Interval History: Pt examined in bed this morning. She states that she had no issue overnight and has no acute changes or complaints. She denies any shortness of breath, dyspnea , abdominal pain, chest pain, hemoptysis, hematuria or hematochezia. She does state that she is cold. She says that she was itchy but that the benadryl they gave her made the itching go away. She states that the ulcer on her foot feels better and is healing and that her right leg is still sore where the DVT is. She mentioned that the Xarelto had her get red spots all over her face and body and she didn't like taking it, so she is hoping there is another medication she can take to prevent the clots in her legs. She also states that she definitely does not want the have the IVC filter surgery after Dr. Valderrama explained it to her yesterday. She denies any acute complaints and is resting comfortably in bed. - Exam Vitals: Temp Pulse Resp BP Pulse Ox 97.6 F 80 15 129/81 97 01/28/18 07:20 01/28/18 07:20 01/28/18 07:20 01/28/18 07:20 01/28/18 07:20 Exam: Gen: AAOx3, NAD, WDWN Heart: RRR, no murmurs Lungs: CTA b/l, no wheeze, normal effort Skin: multiple ecchymoses noted diffusely, skin warm and moist Ext: ulcer on right foot bandaged, right thigh swollen and erythema noted, tenderness on medial aspect of right thigh, left leg show mild edema, no tendness in calves b/l Abd: soft, non-tender, non-distended - Assessment and Plan (1) Deep vein thrombosis of lower extremity Current Visit: Yes Status: Acute - Time Spent with Patient Total time spent is greater than 50% in coordination of care (as documented) at patient's floor/unit and/or counseling patient: Internal Medicine: Result - Labs CBC & Chem 7: 01/28/18 08:25 01/28/18 08:25 Labs: Short CBC 01/28/18 Range/Units 08:25 WBC 9.3 (4.3-11.1) K/mcL Hgb 10.6 L (11.5-15.4) g/dL Hct 32.1 L (35.3-44.9) % Plt Count 63 L (140-400) K/mcL Neutrophils # 7.9 (1.6-8.9) K/mcL BMP 01/28/18 08:25 Sodium 135 L Potassium 4.7 Chloride 103 Carbon Dioxide 26 BUN 43 H Creatinine 1.18 Glucose 138 H Calcium 8.8 Liver Function 01/28/18 Range/Units 08:25 Total Bilirubin 0.7 (0.3-1.0) mg/dL AST 19 (13-39) Units/L ALT 34 (7-52) Units/L Alkaline Phosphatase 140 H (34-104) Units/L Albumin 2.6 L (3.5-5.7) g/dL - ABG Interpretation ABG results: PT/INR, D-dimer PT 12.7 Seconds (9.4-12.1) H 01/28/18 08:25 - VTE Reasons for not Prescribing Prophylaxis: Medical contraindication Consult Discharge Plan - Plan Referrals: Carlos Harley Jr, MD [Primary Care Provider] - (1) Deep vein thrombosis of lower extremity Qualifiers: Affected thrombotic vein of extremity: femoral Chronicity: acute Laterality : bilateral Qualified Code(s): I82.413 - Acute embolism and thrombosis of femoral vein, bilateral
[2018-01-28] MEDS: Insulin DETEMIR 100 UNIT/ML X5UNITS SQ SCH ×2 (10:48→20:16)
--- NOTE | 2018-01-28 13:18 | Oncology Inp Consult Note ---
Date of Encounter: 01/28/18 Time of Encounter: 13:09 Assessment and Plan (1) DVT (deep venous thrombosis) Status: Acute Assessment and plan: Patient presented with new bilateral DVTs. Currently she is on a heparin drip. Patient has a history of DVT in the past and was on xeralto. Previous DVT was provoked secondary to trauma. She was on xeralto for one year and 3 months which was then discontinued by physician at [facility]. Initially a patient with provoked DVT needs only 3-6 months of anticoagulation. 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 Her INR is 1.1. Patient's last admission was in November 2017 for pancreatitis and at that time her thrombocytopenia worsened or her previous baseline was above 100,000 and for the past 3 months her platelets have been around 60,000. Patient does report since September she has experienced extensive bruising. She also reports that since November her mobility has improved slightly with physical therapy. She is able to walk 30 feet on a walker and otherwise is bedbound/uses a wheelchair. Most likely the cause of the presenting bilateral DVT is in mobility. Due to this being a provoked DVT we recommend starting therapeutic dose of xeralto 15 mg twice a day 21 days and then transitioning to 20 mg daily for total of 6 months. She should then be reevaluated by her institute director oncologist Dr. Sams. We recommend that if patient's mobility improves she may discontinue anticoagulation however if it remains the same as today she may continue a prophylactic dose of anticoagulation xeralto 10 mg daily. Patient is at high risk of bleeding as her thrombocytopenia worsens and cirrhosis progresses. Qualifiers: DVT location: lower extremity Affected thrombotic vein of extremity: femoral Chronicity: acute Laterality: left Qualified Code(s): I82.412 - Acute embolism and thrombosis of left femoral vein (2) Autoimmune hepatitis Status: Chronic Assessment and plan: Patient has cirrhosis secondary to autoimmune hepatitis Follow-up with GI specialist in [place]. (3) Thrombocytopenia Status: Chronic Assessment and plan: Secondary to autoimmune hepatitis If patients develops any signs of bleeding would d/c anticoagulation If her thrombocytopenia worsens 30,000 or less would d/c anticoagulation. - Data of Consult Patient: known to practice within the last 3 years Consult date: 01/28/18 Requesting Physician: Maynor Valderrama DO Primary Care Provider: Carlos Harley Jr, MD - Consult Narrative Reason for consult: Bilateral DVT History of present illness: Ms. Johnston is a 72 year old female presented with chief complaint of bilateral lower extremity DVT. Patient currently stays at the [facility] for physical rehabilitation and in the past 2 days seemed to have worsening right lower extremity swelling and redness. She underwent bilateral lower extremity Doppler outpatient and was found to have a DVT. Patient denied chest pain, shortness of breath, syncope, abdominal pain. Patient has history of autoimmune hepatitis with cirrhosis, splenomegaly, thrombocytopenia, chronic right lower extremity wound on IV vancomycin. Patient has a history of DVT over 1-1/2 years ago and was placed on xeralto. She was treated with anticoagulation for 1 year and 3 months and this was discontinued in November ( 2nd to anemia and thrombocytopenia) after she is discharged from [facility] for pancreatitis. In the past year patient's thrombocytopenia has worsened. Usually her platelets were above 100,000 but after having pancreatitis have stayed in the 50-60,000 range. She also experienced diffuse ecchymosis/bruising or being on xeralto. Patient says she was on xeralto 10 mg daily which is a prophylactic dose. She reports minimal improvement in her mobility since starting physical therapy in November. Patient is able to walk with a walker for only 30 feet and otherwise is laying in bed or uses a wheelchair. She denies recent travel. Past Med Surg Social Fam HX - Past Medical History Medical history: diabetes, hepatitis, hypertension, other Additional medical history: autoimmune hepatitis Psychiatric history: no psych history - Past Surgical History Surgical History: , cataract, hysterectomy Additional surgical history: ortho surgery (left wrist) - Social History Smoking Status: Never smoker Smokeless Tobacco Status: No Alcohol use: rarely Drug use: none - Family History Mother Living Status: Hx Family Neurologic Disorders: Yes (ALZHEIMERS) Medications and Allergies Budesonide [Entocort EC] 3 mg PO QAM 11/21/16 [History] Cholecalciferol (D-3) [Vitamin D] 2,000 unit PO DAILY 11/21/16 [History] Furosemide [Lasix] 40 mg PO DAILY PRN 11/21/16 [History] Carvedilol [Coreg] 6.25 mg PO BIDWM tablet 12/21/17 [Rx] Lactulose 20 gm PO TID #90 udc 12/21/17 [Rx] OXYCODONE Oral CONC [Oxycodone Oral Conc] 2.5 mg SL Q4HR PRN 2 Days #10 oral.syg 12/21/17 [Rx] Omeprazole [PriLOSEC] 20 mg PO DAILY #30 capsule. 12/21/17 [Rx] Rifaximin [Xifaxan] 400 mg PO BID tablet 12/21/17 [Rx] Spironolactone [Aldactone] 50 mg PO BID PRN 30 Days 12/21/17 [Rx] DiphenhydraMINE [Benadryl] 25 mg PO Q4H PRN 01/27/18 [History] Insulin Glargine,Hum.rec.anlog [Lantus Solostar] 15 unit SQ BID 01/27/18 [ History] Insulin Human Regular [HumuLIN R] 5 unit IV TID 01/27/18 [History] Sertraline [Zoloft] 50 mg PO DAILY 01/27/18 [History] Vancomycin [Vancocin] 1,000 mg IV 0800 01/27/18 [History] 3 Allergy/AdvReac Type Severity Reaction Status Date / Time No Known Allergies Allergy Verified 11/16/17 13:24 Additional comments: Constitutional: Denies fever, chills HEENT: Denies headache, vision changes, neck pain, sore throat, rhinorrhea Heart: Denies chest pain palpitations Lungs: Denies shortness of breath cough Abdomen: Denies abdominal pain nausea vomiting diarrhea Back: Denies back pain Kidney: Denies dysuria, hematuria Skin: Reports right lower extremity open wound and extensive bruising throughout her whole-body Extremities: Reports lower extremity swelling. Neuro: Denies numbness and tingling Oncology - Exam - Constitutional Vitals: Temp Pulse Resp BP Pulse Ox 97.8 F 73 14 114/74 98 01/28/18 10:59 01/28/18 10:59 01/28/18 10:59 01/28/18 10:59 01/28/18 10:59 - Additional findings Additional findings: General: without distress HEENT: Head atraumatic, normocephalic, EOMI, PERRL, neck nontender to palpation , absent lymphadenopathy, Moist Mucous Membranes, Heart: Regular rate and rhythm with no murmur Lungs: Clear to auscultation bilaterally Abdomen: Soft nontender, nondistended positive bowel sounds Skin: Thin, extensive ecchymosis and small bruising throughout the body Extremities: Bilateral pedal edema greater on right lower extremity Neuro: Alert and oriented 3 Vascular: Pedal and radial pulses 2 out of 4 Oncology - Results Labs: 3 01/28/18 01/28/18 01/28/18 08:25 08:25 08:25 WBC RBC Hgb Hct MCV MCH MCHC RDW Plt Count MPV Immature Gran % Seg Neutrophils % Lymphocytes % Monocytes % Eosinophils % Basophils % Neutrophils # Lymphocytes # Monocytes # Eosinophils # Basophils # Platelet Estimate Immature Plt Fraction PT 12.7 H INR 1.1 Heparin Anti-Xa, Unfract 0.03 L Sodium 135 L Potassium 4.7 Chloride 103 Carbon Dioxide 26 BUN 43 H Creatinine 1.18 Est GFR ( Amer) 55 L Est GFR (Non-Af Amer) 45 L BUN/Creatinine Ratio 36 H Glucose 138 H POC Glucose Calculated Osmolality 293 Calcium 8.8 Magnesium 1.9 Total Bilirubin 0.7 AST 19 ALT 34 Alkaline Phosphatase 140 H Serum Total Protein 5.8 L Albumin 2.6 L Globulin 3.2 Albumin/Globulin Ratio 0.8 L 3 01/28/18 01/28/18 01/28/18 08:25 05:34 01:46 WBC 9.3 RBC 3.05 L Hgb 10.6 L Hct 32.1 L MCV 105.2 H MCH 34.8 H MCHC 33.0 RDW 14.6 H Plt Count 63 L MPV 11.5 Immature Gran % 6.8 H Seg Neutrophils % 84.7 Lymphocytes % 3.2 Monocytes % 4.6 Eosinophils % 0.6 Basophils % 0.1 Neutrophils # 7.9 Lymphocytes # 0.3 L Monocytes # 0.4 Eosinophils # 0.1 Basophils # 0.0 Platelet Estimate Decreased L Immature Plt Fraction 7.3 H PT INR Heparin Anti-Xa, Unfract 0.69 Sodium Potassium Chloride Carbon Dioxide BUN Creatinine Est GFR ( Amer) Est GFR (Non-Af Amer) BUN/Creatinine Ratio Glucose POC Glucose 192 H Calculated Osmolality Calcium Magnesium Total Bilirubin AST ALT Alkaline Phosphatase Serum Total Protein Albumin Globulin Albumin/Globulin Ratio 3 01/27/18 21:30 WBC RBC Hgb Hct MCV MCH MCHC RDW Plt Count MPV Immature Gran % Seg Neutrophils % Lymphocytes % Monocytes % Eosinophils % Basophils % Neutrophils # Lymphocytes # Monocytes # Eosinophils # Basophils # Platelet Estimate Immature Plt Fraction PT INR Heparin Anti-Xa, Unfract 1.10 H* Sodium Potassium Chloride Carbon Dioxide BUN Creatinine Est GFR ( Amer) Est GFR (Non-Af Amer) BUN/Creatinine Ratio Glucose POC Glucose Calculated Osmolality Calcium Magnesium Total Bilirubin AST ALT Alkaline Phosphatase Serum Total Protein Albumin Globulin Albumin/Globulin Ratio Consult Discharge Plan - Plan Referrals: Carlos Harley Jr, MD [Primary Care Provider] -
--- NOTE | 2018-01-28 14:00 | Electrocardiograph Report ---
[address] [place] [address] Test Date: 2018-01-27 Pat Name: Perri Johnston Department: Room: 3A23 Gender: F Safety Companion: : 1945 Requested By: Alexander Christina Order Number: [id number] Reading MD: Balbir Sullivan Measurements Intervals [place] Rate: 91 P: 22 [place]: 156 QRS: -58 QRSD: 100 T: 17 QT: 369 QTc: 454 Interpretive Statements Sinus rhythm Left anterior fascicular bloc Anterolateral infarct, age indeterminate Electronically Signed On 01-28-2018 13:58:33 EDT by Balbir Sullivan
--- NOTE | 2018-01-28 15:15 | Discharge Summary ---
<Zoya Dugan Irene - Last Filed: 01/28/18 15:43> - NOTES TO OUTPATIENT PROVIDER Notes to Outpatient Provider: F/U with GI specialist for Autoimmune Hepatitis; Xarelto 15mg BID [id number] then transition to 20mg daily for a total of 6 months, F/U with Dr. العراقي outpatient Orders not resulted at time of discharge: Pending orders 01/28/18 16:45 Heparin anti-factor XA UFH [COAG] Timed Date of Encounter: 01/28/18 Time of Encounter: 15:12 - Discharge Diagnosis (1) Deep vein thrombosis of lower extremity Priority: Primary Status: Acute Assessment and Plan: - patient presented with b/l DVTs of lower extremities and a past history of DVTs that was provoked by trauma - she was on xeralto previously for 1 year and 3 mo and then that was discontinued at [facility] - she has a history of autoimmune hepatitis and was admitted in November 2017 with pancreatitis since which she has been relatively bedbound - heme/onc consulted - DVTs likely due to immobility, provoked DVT - heme recommends starting therapeutic dose of xeralto 15 mg twice a day 21 days and then transitioning to 20 mg daily for total of 6 months - follow up with Dr. العراقي in outpt clinic after 6 mo - anticoagulation may be d/c if mobility increases, but if it stays the same as today she may continue a prophylactic dose of xeralto 10mg daily - will be d/c to [facility] where she was admitted from Qualifiers: Affected thrombotic vein of extremity: femoral Chronicity: acute Laterality: bilateral Qualified Code(s): I82.413 - Acute embolism and thrombosis of femoral vein, bilateral (2) Autoimmune hepatitis Priority: Primary Status: Chronic Assessment and Plan: chronic issue, continue home PO medications (3) Thrombocytopenia Priority: Secondary Status: Chronic Assessment and Plan: - Secondary to autoimmune hepatitis - as per heme/onc rec: If patients develops any signs of bleeding would d/c anticoagulation, If her thrombocytopenia worsens 30,000 or less would d/c anticoagulation. - h/h stable at this time (4) Right foot ulcer Priority: Primary Status: Chronic Assessment and Plan: - seen at [facility] - large wound on right ankle - on IV Vancomycin for this as per [facility] Qualifiers: Non-pressure ulcer stage: with fat layer exposed Qualified Code(s): L97.512 - Non-pressure chronic ulcer of other part of right foot with fat layer exposed (5) Liver cirrhosis Priority: Secondary Status: Chronic Assessment and Plan: - secondary to autoimmune hepatitis - f/u with GI specialist in [place] Qualifiers: Hepatic cirrhosis type: unspecified hepatic cirrhosis Ascites presence: with ascites Qualified Code(s): K74.60 - Unspecified cirrhosis of liver; R18.8 - Other ascites (6) Diabetes mellitus Priority: Primary Status: Chronic Assessment and Plan: - continue at home regimen Qualifiers: Diabetes mellitus type: type 2 Diabetes mellitus detention insulin use: with detention use Diabetes mellitus complication status: with hyperglycemia Qualified Code(s): E11.65 - Type 2 diabetes mellitus with hyperglycemia; Z79.4 - care home (current) use of insulin Hospital course: Ms. Johnston is a 72 year old female who presented with the chief complaint of bilateral lower extremity DVT. Patient currently at [facility] for physical rehabilitation and in the past 2 days seemed to have worsening right lower extremity swelling and redness. She underwent bilateral lower extremity Doppler outpatient and was found to have DVTs b/l. Patient denied chest pain, shortness of breath, syncope, abdominal pain. Patient has history of autoimmune hepatitis with cirrhosis, splenomegaly, thrombocytopenia, chronic right lower extremity wound on IV vancomycin. Patient has a history of DVT over 1-1/2 years ago and was placed on xeralto. She was treated with anticoagulation for 1 year and 3 months and this was discontinued in November ( 2nd to anemia and thrombocytopenia) after she is discharged from [facility] for pancreatitis. In the past year patient's thrombocytopenia has worsened. Usually her platelets were above 100,000 but after having pancreatitis have stayed in the 50-60,000 range. She also experienced diffuse ecchymosis/bruising from being on xeralto. Patient says she was on xeralto 10 mg daily which is a prophylactic dose. She reports minimal improvement in her mobility since starting physical therapy in November. Patient is able to walk with a walker for only 30 feet and otherwise is laying in bed or uses a wheelchair. She was told at outpt facility that she may need a IVC filter placement but after discussing here with physician she does not wish to undergo that surgery. She was seen by heme/onc who recommended a therapeutic dosing of xeralto at 15mg BID [id number] and then transitioning to 20mg daily for a total of 6 months. She will then follow up with Dr. العراقي in outpt clinic. If mobility increases after 6 months patient may discontinue the anticoagulation but if it does not improve she may continue a prophylactic dose of anticoagulation based on follow up decision by Dr. العراقي. Currently her h/h is stable. She is to continue her at home medications for her recent hepatic encephalopathy, her right foot ulcer and her diabetes. Patient will be d/c back to [facility] with plans to increase strength and mobility. - Time Spent with Patient Total time spent providing and/or coordinating discharge services: - Discharge Medications Prescriptions: Rivaroxaban [Xarelto] 15 mg PO BID 21 Days #42 tablet Rivaroxaban [Xarelto] 20 mg PO DAILY #30 tablet Home Medications: Budesonide [Entocort EC] 3 mg PO QAM 11/21/16 [History] Cholecalciferol (D-3) [Vitamin D] 2,000 unit PO DAILY 11/21/16 [History] Furosemide [Lasix] 40 mg PO DAILY PRN 11/21/16 [History] Carvedilol [Coreg] 6.25 mg PO BIDWM tablet 12/21/17 [Rx] Lactulose 20 gm PO TID #90 udc 12/21/17 [Rx] OXYCODONE Oral CONC [Oxycodone Oral Conc] 2.5 mg SL Q4HR PRN 2 Days #10 oral.syg 12/21/17 [Rx] Omeprazole [PriLOSEC] 20 mg PO DAILY #30 capsule. 12/21/17 [Rx] Rifaximin [Xifaxan] 400 mg PO BID tablet 12/21/17 [Rx] Spironolactone [Aldactone] 50 mg PO BID PRN 30 Days 12/21/17 [Rx] DiphenhydraMINE [Benadryl] 25 mg PO Q4H PRN 01/27/18 [History] Insulin Glargine,Hum.rec.anlog [Lantus Solostar] 15 unit SQ BID 01/27/18 [ History] Insulin Human Regular [HumuLIN R] 5 unit IV TID 01/27/18 [History] Sertraline [Zoloft] 50 mg PO DAILY 01/27/18 [History] Vancomycin [Vancocin] 1,000 mg IV 0800 01/27/18 [History] Rivaroxaban [Xarelto] 15 mg PO BID 21 Days #42 tablet 01/28/18 [Rx] Rivaroxaban [Xarelto] 20 mg PO DAILY #30 tablet 01/28/18 [Rx] Allergies/Adverse Reactions: 3 Allergy/AdvReac Type Severity Reaction Status Date / Time No Known Allergies Allergy Verified 11/16/17 13:24 Date of admission: 01/27/18 16:27 Primary care physician: Carlos Harley Jr, MD Consults: 01/27/18 17:44 Consult to Accountant Machine Processing [CONS] Routine Reason for SW Consult: return to ECF, [facility] 01/27/18 18:16 Consult to Physician [CONS] Routine Consulting Provider: Henrique Menjivar Reason for Consult: Recurrent DVT - now bilateral Time Notified: 18:10 Call Completed: Yes 01/27/18 18:49 Consult to Wound Care [CONS] Routine Reason for Consult: wound on top of right foot Call Completed: No 01/28/18 08:28 Consult to Oncology [CONS] Routine Consulting Provider: [facility] Reason for Consult: recommendations on anticoagulation Call Completed: Yes - Constitutional Vitals: Temp Pulse Resp BP Pulse Ox 97.8 F 86 14 116/76 98 01/28/18 14:22 01/28/18 14:22 01/28/18 14:22 01/28/18 14:22 01/28/18 14:22 General appearance: Present: A&O X 3, pleasant, answers questions appropriately Exam: Gen: AAOx3, NAD, WDWN Heart: RRR, no murmurs Lungs: CTA b/l, no wheeze, normal effort Skin: multiple ecchymoses noted diffusely, skin warm and moist Ext: ulcer on right foot bandaged, right thigh swollen and erythema noted, tenderness on medial aspect of right thigh, left leg show mild edema, no tendness in calves b/l Abd: soft, non-tender, non-distended - Head Head exam: Present: atraumatic, normocephalic - Eye Eye exam: Present: PERRL, conjuntiva pink, sclera anicteric Pupils: Present: PERRL - Neck Neck exam general surgery: Present: supple, trachea midline. Absent: lymphadenopathy - Respiratory Respiratory exam: Present: CTAB. Absent: accessory muscle use, rales, rhonchi, wheezes - Cardiovascular Cardiovascular exam: Present: RRR, +S1, +S2. Absent: diastolic murmur, gallop, rubs, systolic murmur - GI/Abdominal GI/Abdominal exam: Present: normal bowel sounds, soft. Absent: guarding, tenderness - Extremities Exam Extremities exam: Present: warm. Absent: calf tenderness, cyanotic Additional comments: diffuse ecchymosis on upper and lower extremities - Expanded Lower Extremities Exam Upper Leg exam: Present: ecchymosis, erythema, swelling, tenderness Lower Leg exam: Present: ecchymosis, swelling - Neurological Exam Neurological exam: Present: CN II-XII intact, oriented X3, no focal deficits. Absent: pronater drift, facial droop, speech deficit - Skin Skin exam: Present: dry, intact - Patient Status Disposition: Transfer SNF Condition: Undetermined - Discharge Instructions Follow Up With: Carlos Harley Jr, MD [Primary Care Provider] - - VTE Reasons for not Prescribing Prophylaxis: Medical contraindication <Maynor Valderrama - Last Filed: 01/28/18 18:23> Date of Encounter: 01/28/18 - Discharge Diagnosis (1) DVT (deep venous thrombosis) Priority: Primary Status: Acute Qualifiers: DVT location: lower extremity Affected thrombotic vein of extremity: femoral Chronicity: acute Laterality: left Qualified Code(s): I82.412 - Acute embolism and thrombosis of left femoral vein (2) HTN (hypertension) Priority: Secondary Status: Chronic Qualifiers: Hypertension type: essential hypertension Qualified Code(s): I10 - Essential (primary) hypertension (3) Obesity (BMI 30.0-34.9) Priority: Secondary Status: Chronic (4) Autoimmune hepatitis Priority: Secondary Status: Chronic (5) Diabetes mellitus Priority: Secondary Status: Chronic Qualifiers: Diabetes mellitus type: type 2 Diabetes mellitus contract lead insulin use: with contract lead use Diabetes mellitus complication status: with hyperglycemia Qualified Code(s): E11.65 - Type 2 diabetes mellitus with hyperglycemia; Z79.4 - care home (current) use of insulin (6) Thrombocytopenia Status: Chronic (7) Hepatic encephalopathy Priority: Secondary Status: Resolved Hospital course: Ms. Johnston is a 72 year old female - Time Spent with Patient Total time spent providing and/or coordinating discharge services: Date of admission: 01/27/18 16:27 Primary care physician: Carlos Harley Jr, MD Consults: 01/27/18 17:44 Consult to Accountant Machine Processing [CONS] Routine Reason for SW Consult: return to ECF, [facility] 01/27/18 18:16 Consult to Physician [CONS] Routine Consulting Provider: Henrique Menjivar Reason for Consult: Recurrent DVT - now bilateral Time Notified: 18:10 Call Completed: Yes 01/27/18 18:49 Consult to Wound Care [CONS] Routine Reason for Consult: wound on top of right foot Call Completed: No 01/28/18 08:28 Consult to Oncology [CONS] Routine Consulting Provider: [facility] Reason for Consult: recommendations on anticoagulation Call Completed: Yes Discharging clinician: Maynor Valderrama Anticipated date of discharge: 01/28/18 - Constitutional Vitals: Temp Pulse Resp BP Pulse Ox 97.8 F 86 14 116/76 98 01/28/18 14:22 01/28/18 14:22 01/28/18 14:22 01/28/18 14:22 01/28/18 14:22 - Patient Status Functional capacity at discharge: uses cane/walker Overall status at discharge: patient is progressing back to baseline - Diet and Activity Activity: as per physical therapy, increase activity as tolerated Diet: diabetic diet - Attending Attestation The history, physical exam, and medical decision making was performed by the medical student either while I was physically present and actively involved or I personally re-performed the exam and medical decision making. I have verified the accuracy of the medical student's documentation with regards to the history, physical exam findings, and medical decision making on 01/28/18. Ms Johnston has been admitted for bilateral DVTs. She will be restarted on Xarelto. She is not a candidate for a filter due to her hypercoagulability. She is afebrile and ready for return to SNF. Exam alert Comfortable Mucus membranes dry Heart reg Lungs clear Abd soft - caput medusa present Multiple ecchymoses Wound on R foot. Plan D/C to SNF Restart Xarelto - scripts written
--- NOTE | 2018-01-28 15:51 | Physician Discharge Referral ---
<Kraig Emery - Last Filed: 01/28/18 15:48> ExtendedCare Referral Info Provider in Charge after Transfer: PCP Institutional Level of Care: Skilled - Diagnosis (1) DVT (deep venous thrombosis) Priority: Primary (Patient is to take Xarelto 15 mg PO BID for a total of 21 days, followed by Xarelto 20 mg PO daily for a total of 6 months. Follow up with [facility] in the outpatient setting.) Status: Acute (2) Obesity (BMI 30.0-34.9) Priority: Secondary Status: Chronic (3) HTN (hypertension) Priority: Secondary Status: Chronic (4) Autoimmune hepatitis Priority: Secondary Status: Chronic Prognosis: Good - Transfer Medications Prescriptions: Rivaroxaban [Xarelto] 15 mg PO BID 21 Days #42 tablet Rivaroxaban [Xarelto] 20 mg PO DAILY #30 tablet Home Medications: Budesonide [Entocort EC] 3 mg PO QAM 11/21/16 [History] Cholecalciferol (D-3) [Vitamin D] 2,000 unit PO DAILY 11/21/16 [History] Furosemide [Lasix] 40 mg PO DAILY PRN 11/21/16 [History] Carvedilol [Coreg] 6.25 mg PO BIDWM tablet 12/21/17 [Rx] Lactulose 20 gm PO TID #90 udc 12/21/17 [Rx] OXYCODONE Oral CONC [Oxycodone Oral Conc] 2.5 mg SL Q4HR PRN 2 Days #10 oral.syg 12/21/17 [Rx] Omeprazole [PriLOSEC] 20 mg PO DAILY #30 capsule. 12/21/17 [Rx] Rifaximin [Xifaxan] 400 mg PO BID tablet 12/21/17 [Rx] Spironolactone [Aldactone] 50 mg PO BID PRN 30 Days 12/21/17 [Rx] DiphenhydraMINE [Benadryl] 25 mg PO Q4H PRN 01/27/18 [History] Insulin Glargine,Hum.rec.anlog [Lantus Solostar] 15 unit SQ BID 01/27/18 [ History] Insulin Human Regular [HumuLIN R] 5 unit IV TID 01/27/18 [History] Sertraline [Zoloft] 50 mg PO DAILY 01/27/18 [History] Vancomycin [Vancocin] 1,000 mg IV 0800 01/27/18 [History] Rivaroxaban [Xarelto] 15 mg PO BID 21 Days #42 tablet 01/28/18 [Rx] Rivaroxaban [Xarelto] 20 mg PO DAILY #30 tablet 01/28/18 [Rx] Allergies/Adverse Reactions: 3 Allergy/AdvReac Type Severity Reaction Status Date / Time No Known Allergies Allergy Verified 11/16/17 13:24 - Respiratory Orders Smoking Cessation: Smoking cessation has been advised. For more information, call the [facility] Line at 9-468-JGFFNOW. CERTIFICATION: I certify that the transfer of the above named patient to an Extended Care Facility is necessary for the continuing treatment of the diagnosis listed. The above information is true and accurate reflection of patient's current condition. Confidential - Redisclosure prohibited without a patient's written consent. <Maynor Valderrama - Last Filed: 01/28/18 18:25> - Diagnosis (1) DVT (deep venous thrombosis) Status: Acute (2) HTN (hypertension) Status: Chronic (3) Obesity (BMI 30.0-34.9) Status: Chronic (4) Autoimmune hepatitis Status: Chronic (5) Diabetes mellitus Status: Chronic (6) Thrombocytopenia Status: Chronic (7) Hepatic encephalopathy Status: Resolved - Respiratory Orders Oxygen / L per min (Maintain saturation greater than 90%) Smoking Cessation: Smoking cessation has been advised. For more information, call the [facility] Line at 8-515-ZJHKNOW. - Lab Orders Lab Orders: CBC, [place] 17 - Ancillary Orders May use pressure relief devices daily prn, May consult with Dentist, Automatic Door Mechanic, Chair Mender PRN - Advance Directives Code Status: DNR-Comfort Care - Mobility Orders Chair, Ambulate - Rehabiliation Orders Rehab Orders: Evaluation for Physical Therapy, Evaluation for Occupational Therapy - Treatments Skin tear care topically daily PRN per policy, May check for fecal impaction rectally daily PRN, Fleet enema rectally every other day PRN cleansing purposes - Diet Orders No Concentrated Sweets CERTIFICATION: I certify that the transfer of the above named patient to an Extended Care Facility is necessary for the continuing treatment of the diagnosis listed. The above information is true and accurate reflection of patient's current condition. Confidential - Redisclosure prohibited without a patient's written consent.
[2018-01-28] MEDS: Heparin 25,000 UNIT/500 ML D5W 25,000 UNIT/500 ML BAG IVC SCH (21:41)
[2018-01-28] MEDS: OXYCODONE Oral CONC 10 MG/0.5 ML ORAL.SYG SL PRN (21:52)
[2018-01-29 07:05] VITALS: BP 112/79
[2018-01-29] MEDS: Insulin LISPRO 300 UNITS/3 ML VIAL SQ SCH ×2 (07:06→11:31)
[2018-01-29] MEDS ORDERED: *HR* Rivaroxaban 15 MG TABLET PO SCH (09:00)
[2018-01-29] MEDS ORDERED: (Budesonide [Entocort Ec] 3 MG) PO SCH (09:00)
[2018-01-29] MEDS: Insulin DETEMIR 100 UNIT/ML X5UNITS SQ SCH (09:12)
[2018-01-29] MEDS: Lactulose Oral Soln 20 GM/30 ML UDC PO SCH (09:13)
[2018-01-29] MEDS: Cholecalciferol (D-3) 1,000 UNIT TABLET PO SCH (09:14)
--- NOTE | 2018-01-29 09:19 | Internal Med Progress Note ---
<Zoya Dugan L - Last Filed: 01/29/18 09:19> Hospitalist Progress Note - Encounter Date of Encounter: 01/29/18 Time of Encounter: 09:15 - Subjective Interval History: Patient examined in bed this morning. She states that she is feeling a little better but her leg is still hurting her. She denies any shortness of breath, hematuria or dyspnea. She is anxious to get back to the ECF and get her strength back. She denies any acute changes and has no complaints at this time. - Exam Vitals: Temp Pulse Resp BP Pulse Ox 98.0 F 89 15 112/79 97 01/29/18 07:02 01/29/18 07:02 01/29/18 07:02 01/29/18 07:02 01/29/18 07:02 Exam: Gen: AAOx3, NAD, WDWN Heart: RRR, no murmurs Lungs: CTA b/l, no wheeze, normal effort Skin: multiple ecchymoses noted diffusely, skin warm and moist Ext: ulcer on right foot bandaged, right thigh swollen and erythema noted, tenderness on medial aspect of right thigh, left leg show mild edema, no tenderness in calves b/l Abd: soft, non-tender - Assessment and Plan (1) Deep vein thrombosis of lower extremity Status: Acute Assessment and Plan: - patient presented with b/l DVTs of lower extremities and a past history of DVTs - heme/onc consulted - DVTs likely due to immobility, provoked DVT - heme recommends starting therapeutic dose of xeralto 15 mg twice a day 21 days and then transitioning to 20 mg daily for total of 6 months - follow up with Dr. العراقي in outpt clinic after 6 mo - will be d/c to [facility] where she was admitted from (2) Autoimmune hepatitis Status: Chronic Assessment and Plan: chronic issue, f/u with GI specialist in [place] (3) Thrombocytopenia Status: Chronic Assessment and Plan: - patient to be d/c on xeralto back to ECF, monitor for bleeding (4) Right foot ulcer Status: Chronic Assessment and Plan: - on IV vanc for ulcer as per [facility], f/u with [facility] (5) Liver cirrhosis Status: Chronic Assessment and Plan: - secondary to autoimmune hepatitis, f/u with GI specialist (6) Diabetes mellitus Status: Chronic Assessment and Plan: - continue at home medications - Summary of Assessment and Plan Summary of Assessment and Plan: Pt to be discharged to ECF she was admitted from. Will be restarted on xeralto as per heme/onc recommendations. Follow up with Dr. العراقي in 6 months. Continue therapy and strengthening at ECF to increase mobility and decrease chance of LE DVT recurrence. - Time Spent with Patient Total time spent is greater than 50% in coordination of care (as documented) at patient's floor/unit and/or counseling patient: Internal Medicine: Result - Labs CBC & Chem 7: 01/28/18 08:25 01/28/18 08:25 Labs: Short CBC 01/28/18 Range/Units 08:25 Neutrophils # 7.9 (1.6-8.9) K/mcL - ABG Interpretation ABG results: PT/INR, D-dimer PT 12.7 Seconds (9.4-12.1) H 01/28/18 08:25 - Impressions Impressions Chest X-Ray 01/28/18 11:01 IMPRESSION: PICC line via the right arm with the tip overlying the distal superior vena cava. No acute cardiopulmonary process. D/ / 01/28/2018 11:28:25 [facility] Interpreting Provider: Jeanne Metz MD - VTE Reasons for not Prescribing Prophylaxis: Medical contraindication Consult Discharge Plan - Plan Instructions: Deep Venous Thrombosis (DC) Referrals: Carlos Harley Jr, MD [Primary Care Provider] - Prescriptions: Rivaroxaban [Xarelto] 15 mg PO BID 21 Days #42 tablet Rivaroxaban [Xarelto] 20 mg PO DAILY #30 tablet <Myanor Valderrama - Last Filed: 01/29/18 15:07> Hospitalist Progress Note - Encounter Date of Encounter: 01/29/18 - Exam Vitals: Temp Pulse Resp BP Pulse Ox 98.0 F 89 15 112/79 97 01/29/18 07:02 01/29/18 07:02 01/29/18 07:02 01/29/18 07:02 01/29/18 07:02 - Assessment and Plan (1) DVT (deep venous thrombosis) Status: Acute (2) HTN (hypertension) Status: Chronic (3) Obesity (BMI 30.0-34.9) Status: Chronic (4) Autoimmune hepatitis Status: Chronic (5) Diabetes mellitus Status: Chronic (6) Thrombocytopenia Status: Chronic (7) Hepatic encephalopathy Status: Resolved - Time Spent with Patient Total time spent is greater than 50% in coordination of care (as documented) at patient's floor/unit and/or counseling patient: Internal Medicine: Result - Labs CBC & Chem 7: 01/28/18 08:25 01/28/18 08:25 - ABG Interpretation ABG results: PT/INR, D-dimer PT 12.7 Seconds (9.4-12.1) H 01/28/18 08:25 - Impressions Impressions Chest X-Ray 01/28/18 11:01 IMPRESSION: PICC line via the right arm with the tip overlying the distal superior vena cava. No acute cardiopulmonary process. D/ / 01/28/2018 11:28:25 Jeanne Metz MD / [facility] Interpreting Provider: Jeanne Metz MD - Attending Attestation The history, physical exam, and medical decision making was performed by the medical student either while I was physically present and actively involved or I personally re-performed the exam and medical decision making. I have verified the accuracy of the medical student's documentation with regards to the history, physical exam findings, and medical decision making on 01/29/18. Ms Johnston is currently admitted for acute bilateral LE DVTs. She remains moderate to high risk due to potential for worsening clinical status. Ms Johnston feels OK. R leg still hurts. No fever or chills. Eating breakfast without difficulty. Having loose stools related to Lactulose. Exam Alert Comfortable at this time Mucus membranes dry Heart distant Decreased lung sounds Abd soft Multiple ecchymoses noted R LE tender to touch I/P 1. Bilateral DVTs - restarted Xarelto per hematology recommendations 2. Autoimmune hepatitis Further diagnoses and plan as above To go to [facility] today. <Zoya Dugan - Last Filed: 01/29/18 09:19> (1) Deep vein thrombosis of lower extremity Qualifiers: Affected thrombotic vein of extremity: femoral Chronicity: acute Laterality : bilateral Qualified Code(s): I82.413 - Acute embolism and thrombosis of femoral vein, bilateral (4) Right foot ulcer Qualifiers: Non-pressure ulcer stage: with fat layer exposed Qualified Code(s): L97.512 - Non-pressure chronic ulcer of other part of right foot with fat layer exposed (5) Liver cirrhosis Qualifiers: Hepatic cirrhosis type: unspecified hepatic cirrhosis Ascites presence: with ascites Qualified Code(s): K74.60 - Unspecified cirrhosis of liver; R18.8 - Other ascites (6) Diabetes mellitus Qualifiers: Diabetes mellitus type: type 2 Diabetes mellitus terminal supervisor insulin use: with terminal supervisor use Diabetes mellitus complication status: with hyperglycemia Qualified Code(s): E11.65 - Type 2 diabetes mellitus with hyperglycemia; Z79.4 - [facility] (current) use of insulin <Maynor Valderrama - Last Filed: 01/29/18 15:07> (1) DVT (deep venous thrombosis) Qualifiers: DVT location: lower extremity Affected thrombotic vein of extremity: femoral Chronicity: acute Laterality: left Qualified Code(s): I82.412 - Acute embolism and thrombosis of left femoral vein (2) HTN (hypertension) Qualifiers: Hypertension type: essential hypertension Qualified Code(s): I10 - Essential (primary) hypertension (5) Diabetes mellitus Qualifiers: Diabetes mellitus type: type 2 Diabetes mellitus usp insulin use: with usp use Diabetes mellitus complication status: with hyperglycemia Qualified Code(s): E11.65 - Type 2 diabetes mellitus with hyperglycemia; Z79.4 - termite exterminator helper (current) use of insulin
== END 2018-01-29 12:25 | DRG 300 ==
LOC: 3ANU 14:05 → EMEROOARM 14:05 → SUATTDRO 16:27 → 3ANU 17:28
PROVIDERS: ADMIT Internal Medicine; ATTEND Internal Medicine